=== PATIENT | female | born 1930 | race African-American/Black ===

== ENCOUNTER 2017-06-29 05:56 | Emergency (ER) | payer MEDICARE ==
[2017-06-29 07:14] LABS: #Basophils 0.1 thou/uL (0.0-0.2); #Eosinphils 0.1 thou/uL (0.0-0.7); #Lymphocytes 1.9 thou/uL (1.20-3.40); #Monocytes 0.7 thou/uL (0.11-0.59); #Neutrophils 7.1 thou/uL (1.40-6.50); %Basophils 1.1 % (0.0-1.0); %Eosinophils 0.8 % (0.0-10.0); %Lymphocytes 19.7 % (21.0-51.0); %Monocytes 6.7 % (0.0-10.0); %Neutrophils 71.7 % (42.0-75.0); Hemoglobin 11.5 g/dL (12.0-16.0); Mean Corpuscular HGB CONC 32.1 g/dL (32.0-36.0); Mean Corpuscular Hemoglobin 30.6 pg (27.0-31.0); Mean Corpuscular Volume 95.3 fl (81.0-99.0); Mean Platelet Volume 5.8 fL (7.4-10.4); Platelet Count 276 thou/uL (130-400); RBC Distribution Width 11.7 % (11.5-14.5); Red Blood Cell (RBC) Count 3.77 mill/uL (4.20-5.40); White Blood Cell (WBC) Count 9.8 thou/uL (4.8-10.8)
[2017-06-29 07:23] LABS: PTT 27.8 SEC (22.9-36.1); Prothrombin Time 13.2 SEC (12.0-14.7)
[2017-06-29] MEDS ORDERED: Pantoprazole 40 MG VIAL ONE (07:24)
[2017-06-29 07:33] LABS: ALT (SGPT) 11 U/L (8-55); AST (SGOT) 17 U/L (5-34); Albumin 3.7 g/dL (3.4-4.8); Alkaline Phosphatase 63 U/L (40-150); Anion Gap 15 mmol/L (10-20); BUN (Urea Nitrogen) 13 mg/dL (9.8-20.1); Bilirubin, Total 0.7 mg/dL (0.2-1.2); CK (CPK) 55 U/L (29-168); CKMB 0.8 ng/mL (0-6.6); Calc. Creatinine Clearance 0 mL/min (70-130); Calcium 9.4 mg/dL (7.8-10.44); Carbon Dioxide 27 mmol/L (23-31); Chloride 99 mmol/L (98-107); Estimated GFR-MDRD 87; Globulin 3.7 g/dL (2.4-3.5); Glucose 102 mg/dL (83-110); Lipase 8 U/L (8-78); Potassium 4.4 mmol/L (3.5-5.1); Protein, Total 7.4 g/dL (6.0-8.3); Sodium 137 mmol/L (136-145); Troponin I Less than 0.010 ng/mL (< 0.028)
[2017-06-29] MEDS ORDERED: Sodium Chloride 0.9% 250 ML 250 ML ONE (07:59)
--- NOTE | 2017-06-29 07:59 | RAD ---
PORTABLE CHEST 1 VIEW: DATE: 06/29/17. TIME: 6:32 a.m. HISTORY: Nausea and vomiting. FINDINGS: Comparison is made with the exam of 06/24/17. The heart size is normal. The aorta is tortuous. No confluent areas of consolidation, pneumothorax , or pleural effusions are seen. IMPRESSION: No acute process. POS: [facility]
== END 2017-06-29 09:00 | disposition short-term general hospital (02) ==
LOC: NAV ERS 05:56
DX: K92.2 Gastrointestinal hemorrhage, unspecified (principal); E11.9 Type 2 diabetes mellitus without complications; F17.220 Nicotine dependence, chewing tobacco, uncomplicated; Z79.82 Long term (current) use of aspirin; Z79.84 Long term (current) use of oral hypoglycemic drugs; Z79.899 Other long term (current) drug therapy
CPT/HCPCS: 71010; 80053; 82550; 82553; 83690; 84484; 85025; 85610; 85730; 86850; 86900; 86901; 93005; 96374; C9113; J7050

== ENCOUNTER 2017-06-30 20:19 | Inpatient (IN) | payer MEDICARE ==
[2017-06-30] MEDS ORDERED: Ondansetron ODT 4 MG TAB PO PRN (20:50)
[2017-06-30] MEDS ORDERED: traMADol HCl 50 MG TAB PO PRN ×2 (20:50)
[2017-06-30] MEDS ORDERED: Calcium Carbonate 500 MG ChewTAB PO PRN (20:59)
[2017-06-30] MEDS ORDERED: Milk Of Magnesia 30 ML UDCUP PO PRN (20:59)
[2017-06-30] MEDS ORDERED: Loperamide HCl 2 MG CAP PO PRN (20:59)
[2017-06-30] MEDS: Acetaminophen 325 MG TAB PO SCH (21:00)
[2017-06-30] MEDS: Senokot S 8.6-50 MG TAB PO SCH (22:04)
[2017-06-30] MEDS: Docusate 100 MG CAP PO SCH (22:04)
[2017-07-01] MEDS: Acetaminophen 325 MG TAB PO SCH ×4 (03:00→21:32)
--- NOTE | 2017-07-01 04:46 | HP ---
DATE OF ADMISSION: 06/30/2017 DATE OF HISTORY AND PHYSICAL: 06/30/2017 HISTORY OF PRESENT ILLNESS: Ms. Rodríguez is a very pleasant 87-year-old thin black female that lives in [place]. Unfortunately, she fell and had a right femur fracture requiring surgical correction. She, eventually, was stabilized and transferred to [facility], but at [facility] she was on prophylactic Lovenox 30 every day along with aspirin and Zantac twice a day. She unfortunately had a GI bleed, was transferred back to [facility] where she got scoped. She has had no significant other bleeding and was transferred to [facility] for continued physical therapy, occupational therapy for her fractured femur. PAST MEDICAL HISTORY: 1. Repeat urinary tract infection. 2. Diabetes type 2. 3. Gastroesophageal reflux disease. 4. Peptic ulcer in the distant past. 5. Constipation. 6. Pain management. PAST SURGICAL HISTORY: 1. Recent femur fracture. 2. Past history of distant right hip replacement. 3. Appendectomy. 4. Hysterectomy. ALLERGIES: Reveal the patient has no known allergies. MEDICATIONS: Reveal the patient is presently on aspirin 81 mg daily, metformin 500 mg daily, MiraLax 17 grams daily, Lovenox 30 mg daily, tramadol 50 mg with Tylenol p.r.n., Protonix 40 mg b.i.d. FAMILY HISTORY: Unremarkable. SOCIAL HISTORY: Reveals patient denies tobacco, alcohol, but she does dip snuff. REVIEW OF SYSTEMS: Unable to obtain because the patient has cognitive deficits , and is not able to answer questions. PHYSICAL EXAMINATION: VITAL SIGNS: Reveal blood pressure 153/67, pulse 85, respirations 20, O2 saturation 97%, and temperature 97.5. GENERAL: This is a well-developed, well-nourished, thin black female in no apparent distress at this time. HEENT: Reveals normocephalic, nontraumatic cranium. Pupils are equally round and reactive. Extraocular movements intact. Nose and throat are slightly dry. NECK: Supple, without masses, nodes or bruits. No jugular venous distention is noted. CHEST: Clear to auscultation. No rales, rhonchi, wheezes or cough is heard. HEART: Reveals a regular rate and rhythm with a 2/6 systolic ejection murmur noted. ABDOMEN: Soft, nontender, without organomegaly, normal bowel sounds are noted. No rebound or guarding is noted. : Deferred. EXTREMITIES: Reveal right lower leg is in a leg immobile splint. SKIN: Warm and dry. ASSESSMENT: 1. Recent femur fractures, open reduction and internal fixation done by unknown surgeon. 2. Recent gastrointestinal bleed, most likely secondary to peptic ulcer, now not bleeding. 3. Anemia secondary to gastrointestinal bleed. 4. Chronic kidney disease stage 2. 5. Diabetes type 2. 6. Recent femur fracture. 7. Gastroesophageal reflux disease. 8. Cognitive deficits. 9. DNR. 10. Recent Escherichia coli urinary tract infection. 11. Chronic constipation. PLAN: 1. The patient is admitted. We will continue her present medications. 2. We get a consult from physical therapy and occupational daily. 3. Continue stress ulcer prophylaxis. 4. Continue decubitus precautions. 5. Continue decubitus deep venous thrombosis prophylaxis. 6. Continue working for senior living placement after her therapy. CUATE
[2017-07-01 06:05] LABS: #Basophils 0.1 thou/uL (0.0-0.2); #Eosinphils 0.1 thou/uL (0.0-0.7); #Lymphocytes 2.2 thou/uL (1.20-3.40); #Monocytes 0.7 thou/uL (0.11-0.59); #Neutrophils 5.2 thou/uL (1.40-6.50); %Basophils 1.6 % (0.0-1.0); %Eosinophils 1.5 % (0.0-10.0); %Lymphocytes 26.2 % (21.0-51.0); %Monocytes 8.9 % (0.0-10.0); %Neutrophils 61.7 % (42.0-75.0); Mean Corpuscular HGB CONC 32.6 g/dL (32.0-36.0); Mean Corpuscular Hemoglobin 31.1 pg (27.0-31.0); Mean Corpuscular Volume 95.4 fl (81.0-99.0); Mean Platelet Volume 5.5 fL (7.4-10.4); Platelet Count 296 thou/uL (130-400); RBC Distribution Width 11.7 % (11.5-14.5); Red Blood Cell (RBC) Count 3.54 mill/uL (4.20-5.40); White Blood Cell (WBC) Count 8.4 thou/uL (4.8-10.8)
[2017-07-01 06:11] LABS: ALT (SGPT) 10 U/L (8-55); AST (SGOT) 20 U/L (5-34); Albumin 3.6 g/dL (3.4-4.8); Alkaline Phosphatase 62 U/L (40-150); Anion Gap 16 mmol/L (10-20); BUN (Urea Nitrogen) 10 mg/dL (9.8-20.1); Bilirubin, Total 0.9 mg/dL (0.2-1.2); Calc. Creatinine Clearance 68 mL/min (70-130); Calcium 9.3 mg/dL (7.8-10.44); Carbon Dioxide 23 mmol/L (23-31); Chloride 104 mmol/L (98-107); Estimated GFR-MDRD Greater than 90; Globulin 3.5 g/dL (2.4-3.5); Glucose 114 mg/dL (83-110); Potassium 4.7 mmol/L (3.5-5.1); Protein, Total 7.1 g/dL (6.0-8.3); Sodium 138 mmol/L (136-145)
--- NOTE | 2017-07-01 09:39 | PRG ---
DATE OF ADMISSION: 06/30/2017 DATE OF SERVICE: 07/01/2017 HISTORY OF PRESENT ILLNESS: Ms. Rodríguez is a very pleasant 87-year-old black female who lives in [facility]. Unfortunately, she fell and had a right femur fracture requiring surgical correction. Then she was stabilized and transferred to [facility], but there she had significant problems with uppe r GI bleed. She was taken back to the hospital and has had EGD done. No significant bleeding was f ound. The patient was transferred to [facility] for continued PT, OT of her fractur ed femur. SUBJECTIVE: The patient is awake this morning, she states she did not sleep last night very much. She did get somewhat agitated and had to have some soft restraints. Her daughter is aware of that. Her daughter is aware that she has some increasing dementia and we start her on some alzheimer's ty pe medications. We will start her on some Aricept today. The patient has no complaints today, except she does not really know where she is and states she wou ld like to stay upon all long. PHYSICAL EXAMINATION: VITAL SIGNS: Today reveal blood pressure 153/67, pulse 85, respirations 20, O2 saturation 97% on ro om air, temperature 97.5. GENERAL: This is a well-developed, well-nourished, black female in no apparent distress at this [facility]. HEENT: Reveals normocephalic, nontraumatic cranium. Pupils are equally round and reactive. Nose a nd throat are still somewhat dry. NECK: Supple, without masses, nodes or bruits. No jugular venous distention is noted. LUNGS: Chest is clear to auscultation. No rales or rhonchi are heard. No wheezes are heard. No c ough is heard. CARDIOVASCULAR: Reveals a regular rate and rhythm. The patient does have a 2/6 systolic ejection m urmur. ABDOMEN: Soft, nontender, without organomegaly. No rebound or guarding is noted. Normal bowel candy nds are heard in all 4 quadrants. GENITOURINARY: Deferred. Extremities: Right lower extremity has a knee immobilizer. SKIN: The patient's skin is warm and dry. ASSESSMENT: 1. Recent femur fracture with internal fixation and open reduction done recently. 2. Gastrointestinal bleed, most likely secondary to peptic ulcer, now not bleeding. 3. Anemia secondary to gastrointestinal bleed. 4. Chronic kidney disease stage 2. 5. Diabetes type 2. 6. Recent femur fracture. 7. Gastroesophageal reflux disease. 8. Cognitive deficits with early dementia. 9. DNR. 10. Recent Escherichia coli urinary tract infection is resolved. 11. Constipation, chronic. PLAN: 1. The patient will continue present medications. 2. We will start the patient on Aricept. 3. Continue stress ulcer prophylaxis. 4. Continue decubitus precautions. 5. Continue deep venous thrombosis prophylaxis. 6. Physical therapy and occupational therapy consults. 7. prison placement.
[2017-07-01] MEDS: Polyethylene Glycol 3350 17 GM Packet PO SCH (09:53)
[2017-07-01] MEDS: Docusate 100 MG CAP PO SCH ×2 (09:53→21:28)
[2017-07-01] MEDS: Aspirin 81 mg Enteric Coated Tablet PO SCH (09:53)
[2017-07-01] MEDS: Senokot S 8.6-50 MG TAB PO SCH ×2 (09:53→21:27)
[2017-07-01] MEDS: Acetaminophen 325 MG TAB PO PRN ×2 (09:53→21:27)
[2017-07-01] MEDS: metFORMIN 500 MG TAB PO SCH (17:32)
[2017-07-01] MEDS: Donepezil HCl 5 MG TAB PO SCH (21:27)
[2017-07-02] MEDS: Acetaminophen 325 MG TAB PO SCH ×4 (02:37→22:12)
[2017-07-02] MEDS: Polyethylene Glycol 3350 17 GM Packet PO SCH (08:10)
[2017-07-02] MEDS: Docusate 100 MG CAP PO SCH ×2 (08:11→22:10)
[2017-07-02] MEDS: Senokot S 8.6-50 MG TAB PO SCH ×2 (08:11→22:10)
[2017-07-02] MEDS: Aspirin 81 mg Enteric Coated Tablet PO SCH (08:11)
[2017-07-02] MEDS: metFORMIN 500 MG TAB PO SCH (16:23)
[2017-07-02 19:40] LABS: Bilirubin Negative (Negative); Blood, Urine Negative (Negative); Clarity Clear (Clear); Glucose, Urine (Dipstick) Negative (Negative); Leukocyte Small (Negative); Nitrite Negative (Negative); Protein, Urine (Dipstick) Negative (Neg-Trace)
[2017-07-02 19:41] LABS: Bacteria/HPF Rare-Few HPF (None Seen); RBC/HPF 0-3 HPF (0-3); Squamous Epithelial 0-3 HPF (0-3)
--- NOTE | 2017-07-02 20:45 | PRG ---
DATE OF SERVICE: 07/02/2017 HISTORY OF PRESENT ILLNESS: Ms. Rodríguez is a very pleasant 87-year-old black female, who lives in [facility]. Unfortunately, she fell and had a right femoral neck fracture. She has surgical correction and transferred to [facility], but had an upper GI bleed there. She was taken back to the hospit al and had EGD done, which was unremarkable. The patient was then transferred to [facility] for continued physical therapy and occupational therapy of her fractured femur. SUBJECTIVE: The patient is confused today. She is oriented to person, but not place or time. She does have a history of some dementia. She is not agitated today. She has no other complaints. We did start her on Aricept. PHYSICAL EXAMINATION: VITAL SIGNS: Reveal blood pressure is 128/58 this morning with a pulse of 87 to 95, respirations 20 , O2 sat 98% on room air, T-max 97.7. Point of care sugars have been in the following: This mornin g, fasting 160, before lunch 148, before supper 132. Her max was last night at 180. GENERAL: This is a well-developed, well-nourished, black female in no apparent distress at this felicia e. HEENT: Reveals normocephalic, nontraumatic cranium. Pupils are equally round and reactive. Extrao cular movements are intact. Nose and throat are somewhat dry, but clear. NECK: Supple, without masses, nodes or bruits. No jugular venous distention is noted. LUNGS: Chest is clear to auscultation. No rales, rhonchi, wheezes or cough is heard. CARDIOVASCULAR: Heart reveals a regular rate and rhythm. The patient has a 2/6 systolic ejection m urmur. ABDOMEN: Soft, nontender, without organomegaly, normal bowel sounds are noted in all 4 quadrants. GENITOURINARY: Deferred. EXTREMITIES: Reveal no clubbing, cyanosis or edema. The patient does have a right knee immobilizer on. ASSESSMENT: 1. Recent femur fracture with internal fixation and open reduction. 2. Gastrointestinal bleed, most likely secondary to peptic ulcer, not bleeding now. 3. Anemia secondary to gastrointestinal bleed. 4. Chronic kidney disease, stage 2. 5. Diabetes. 6. Recent femur fracture. 7. Gastroesophageal reflux disease. 8. Cognitive deficits with early dementia. 9. DO NOT RESUSCITATE. 10. Recent Escherichia coli urinary tract infection, resolved. 11. Constipation. PLAN: 1. Continue present medications. 2. The patient was started on Aricept 5 mg every evening. 3. Continue stress ulcer prophylaxis. 4. Continue decubitus precautions. 5. Continue deep venous thrombosis prophylaxis. 6. Physical therapy and occupational therapy. 7. half-way placement in the future sometimes.
[2017-07-02] MEDS: Donepezil HCl 5 MG TAB PO SCH (22:10)
[2017-07-03] MEDS: Acetaminophen 325 MG TAB PO SCH ×4 (04:03→20:18)
[2017-07-03] MEDS: Aspirin 81 mg Enteric Coated Tablet PO SCH (08:41)
[2017-07-03] MEDS: Polyethylene Glycol 3350 17 GM Packet PO SCH (08:42)
[2017-07-03] MEDS: Senokot S 8.6-50 MG TAB PO SCH ×2 (08:42→20:18)
[2017-07-03] MEDS: Docusate 100 MG CAP PO SCH ×2 (08:42→20:18)
--- NOTE | 2017-07-03 12:07 | PRG ---
DATE OF SERVICE: 07/03/2017 HISTORY OF PRESENT ILLNESS: Ms. Rodríguez is a very pleasant 87-year-old black female who lives in [facility]. She has dementia and is somewhat confused. Unfortunately, she fell and had a right femoral neck fracture. She was transferred to [facility], but had an upper GI bleed and was transferred [facility] to [place]. She had an EGD done, which was unremarkable and then transferred to [facility] for continued physical therapy and occupational therapy of her fractured femur. SUBJECTIVE: The patient continues to be confused. She is oriented to person, but not place or time . She does have a history of dementia according to her past chart. She is undergoing therapy this morning. We will see how well she does, she is actually nonweightbearing for the distal fracture. VITAL SIGNS: Reveal blood pressure is 138/57, pulse 83 to 95, respirations 20 to 22, T-max 98.2. Point of care sugars reveal fasting this morning, 121; last night before bedtime, 150; before supper , 132; before lunch, 148; yesterday morning fasting, 116. PHYSICAL EXAMINATION: GENERAL: This is a well-developed, well-nourished, black female in no apparent distress at this [facility]. HEENT: Reveals normocephalic, nontraumatic cranium. Pupils are equally round. Extraocular movemen ts intact. Nose and throat are still dry. NECK: Supple, without masses, nodes or bruits. CHEST: Clear to auscultation. No rales, rhonchi or wheezes, or cough is heard. CARDIOVASCULAR: Heart reveals a regular rate and rhythm. Patient has a 2/6 systolic ejection murmu r. ABDOMEN: Soft, nontender, without organomegaly, normal bowel sounds are noted. No rebound or guard ing is noted. GENITOURINARY: Deferred. EXTREMITIES: Reveal right knee immobilizer, actually it is fixed. She is supposed to be nonweightb earing. Physical therapy is working for that today. ASSESSMENT: 1. Recent femur fracture. 2. Gastrointestinal bleed, most likely secondary to peptic ulcer, not bleeding now. 3. Anemia secondary to gastrointestinal bleed. 4. Chronic kidney disease stage 2. 5. Diabetes. 6. Recent femur fracture. 7. Gastroesophageal reflux. 8. Cognitive deficits with dementia. 9. Do not resuscitate. 10. Recent Escherichia coli urinary tract infection, resolved. 11. Constipation. PLAN: 1. Continue present medications. 2. Aricept 5 mg every evening. 3. Continue stress ulcer prophylaxis. 4. Continue decubitus precautions. 5. Continue deep venous thrombosis prophylaxis. 6. Continue physical therapy and occupational therapy. 7. Probable assisted placement in the future. 8. Dr. Lozada to follow the rest of the week until I get back on Sunday.
[2017-07-03] MEDS: metFORMIN 500 MG TAB PO SCH (17:39)
[2017-07-03] MEDS: Donepezil HCl 5 MG TAB PO SCH (20:18)
[2017-07-04] MEDS: Acetaminophen 325 MG TAB PO SCH ×4 (06:40→20:48)
[2017-07-04] MEDS: Polyethylene Glycol 3350 17 GM Packet PO SCH (09:03)
[2017-07-04] MEDS: Docusate 100 MG CAP PO SCH ×2 (09:04→20:48)
[2017-07-04] MEDS: Aspirin 81 mg Enteric Coated Tablet PO SCH (09:04)
[2017-07-04] MEDS: Senokot S 8.6-50 MG TAB PO SCH ×2 (09:04→20:48)
[2017-07-04] MEDS: metFORMIN 500 MG TAB PO SCH (17:10)
[2017-07-04] MEDS: Donepezil HCl 5 MG TAB PO SCH (20:48)
[2017-07-05] MEDS: Acetaminophen 325 MG TAB PO SCH ×4 (05:21→20:16)
[2017-07-05] MEDS: Docusate 100 MG CAP PO SCH ×2 (09:52→20:16)
[2017-07-05] MEDS: Aspirin 81 mg Enteric Coated Tablet PO SCH (09:52)
[2017-07-05] MEDS: Senokot S 8.6-50 MG TAB PO SCH ×2 (09:52→20:17)
[2017-07-05] MEDS: Polyethylene Glycol 3350 17 GM Packet PO SCH (09:52)
[2017-07-05] MEDS ORDERED: Mag-Al 1200 mg/1200 mg/30 ML UDCUP PO PRN (13:13)
--- NOTE | 2017-07-05 13:42 | PRG ---
DATE OF SERVICE: 07/05/2017 SUBJECTIVE: Ms. Rodríguez is doing well except she is having complaining of some substernal pressure. She apparently belches and then the pain goes away. She denies any shortness of breath. She al es any palpitations. She denies any PND or orthopnea. OBJECTIVE: VITAL SIGNS: She is afebrile, heart rate 76, respirations 18, oxygen saturation 94%, and blood pres sure 127/60. CARDIOVASCULAR: S1, S2 plus. RESPIRATORY: Normal vesicular breath sounds. ABDOMEN: Soft, nontender, bowel sounds heard in all quadrants. EXTREMITIES: Without cyanosis or clubbing. Peripheral pulses are palpable. CENTRAL NERVOUS SYSTEM: Grossly nonfocal. LABORATORY DATA: Blood sugars are 118, 144, 112 and 198. IMPRESSION: 1. Atypical chest pain, possibly related to gastroesophageal reflux disease. 2. Recent femur fracture, improving with therapy. 3. History of gastrointestinal bleed, stable hemoglobin and hematocrit. 4. Chronic kidney disease, stage 2. 5. Diabetes mellitus type 2. 6. Gastroesophageal reflux disease. 7. Cognitive deficits with dementia. PLAN: 1. Continue current medications. 2. Add Maalox 30 mL p.o. q.6 hours p.r.n. 3. Continue proton-pump inhibitor. 4. Physical therapy. 5. Accu-Cheks with assessable coverage. 6. Deep venous thrombosis and stress ulcer prophylaxis. 7. Decubitus precautions. 8. No family at the bedside.
[2017-07-05] MEDS ORDERED: Mag-Al Plus 1200 MG/1200 MG/120 MG/30 ML UDCUP PO PRN (13:56)
[2017-07-05] MEDS: metFORMIN 500 MG TAB PO SCH (17:18)
[2017-07-05] MEDS: Donepezil HCl 5 MG TAB PO SCH (20:17)
[2017-07-06] MEDS: Acetaminophen 325 MG TAB PO SCH ×4 (08:14→21:10)
[2017-07-06] MEDS: Docusate 100 MG CAP PO SCH ×2 (08:55→21:10)
[2017-07-06] MEDS: Senokot S 8.6-50 MG TAB PO SCH ×2 (08:55→21:10)
[2017-07-06] MEDS: Polyethylene Glycol 3350 17 GM Packet PO SCH (08:55)
[2017-07-06] MEDS: Aspirin 81 mg Enteric Coated Tablet PO SCH (08:55)
--- NOTE | 2017-07-06 09:35 | PRG ---
DATE OF SERVICE: 07/06/2017 SUBJECTIVE: Ms. Rodríguez is doing well. Denies any complaints. She states that the Maalox is helpi ng with her substernal pressure-like sensation. No other concerns or questions. OBJECTIVE: VITAL SIGNS: She is afebrile, heart rate 75, respirations 18, oxygen saturation 94%, blood pressure 123/57. CARDIOVASCULAR: S1, S2 plus. RESPIRATORY: Normal vesicular breath sounds. ABDOMEN: Soft, nontender, bowel sounds heard in all quadrants. EXTREMITIES: Without cyanosis or clubbing. CENTRAL NERVOUS SYSTEM: Improving deconditioning. LABORATORY VALUES: Blood sugars are 115, 142, 112. IMPRESSION: 1. Atypical chest pain, likely gastroesophageal reflux disease, improved with Maalox. 2. Recent femur fracture, tolerating therapy. 3. History of gastrointestinal bleed, monitor H\T\H. 4. Chronic kidney disease stage 2. 5. Diabetes mellitus type 2, well controlled. 6. Cognitive deficits with dementia. PLAN: 1. Continue current medications. 2. Nutritional support. 3. DVT and stress ulcer prophylaxis. 4. Decubitus precautions. 5. Incision care. 6. Check CBC in the morning. 7. I discussed with the patient in detail and all questions answered.
[2017-07-06] MEDS: metFORMIN 500 MG TAB PO SCH (17:19)
[2017-07-06] MEDS: Donepezil HCl 5 MG TAB PO SCH (21:11)
[2017-07-07] MEDS: Acetaminophen 325 MG TAB PO SCH ×4 (04:02→22:05)
[2017-07-07 05:12] LABS: #Basophils 0.1 thou/uL (0.0-0.2); #Eosinphils 0.2 thou/uL (0.0-0.7); #Lymphocytes 2.8 thou/uL (1.20-3.40); #Monocytes 0.6 thou/uL (0.11-0.59); #Neutrophils 5.7 thou/uL (1.40-6.50); %Basophils 0.8 % (0.0-1.0); %Eosinophils 1.8 % (0.0-10.0); %Lymphocytes 29.7 % (21.0-51.0); %Monocytes 6.2 % (0.0-10.0); %Neutrophils 61.5 % (42.0-75.0); Hemoglobin 11.9 g/dL (12.0-16.0); Mean Corpuscular HGB CONC 32.8 g/dL (32.0-36.0); Mean Corpuscular Hemoglobin 31.5 pg (27.0-31.0); Mean Corpuscular Volume 96.1 fl (81.0-99.0); Mean Platelet Volume 5.2 fL (7.4-10.4); Platelet Count 360 thou/uL (130-400); RBC Distribution Width 13.2 % (11.5-14.5); Red Blood Cell (RBC) Count 3.77 mill/uL (4.20-5.40); White Blood Cell (WBC) Count 9.3 thou/uL (4.8-10.8)
[2017-07-07 05:30] LABS: Anion Gap 12 mmol/L (10-20); BUN (Urea Nitrogen) 12 mg/dL (9.8-20.1); Calc. Creatinine Clearance 69 mL/min (70-130); Calcium 9.4 mg/dL (7.8-10.44); Carbon Dioxide 27 mmol/L (23-31); Chloride 104 mmol/L (98-107); Estimated GFR-MDRD Greater than 90; Glucose 108 mg/dL (83-110); Potassium 4.3 mmol/L (3.5-5.1); Sodium 139 mmol/L (136-145)
[2017-07-07] MEDS: Senokot S 8.6-50 MG TAB PO SCH ×2 (08:25→22:05)
[2017-07-07] MEDS: Polyethylene Glycol 3350 17 GM Packet PO SCH (08:25)
[2017-07-07] MEDS: Docusate 100 MG CAP PO SCH ×2 (08:25→22:05)
[2017-07-07] MEDS: Aspirin 81 mg Enteric Coated Tablet PO SCH (08:25)
--- NOTE | 2017-07-07 10:24 | PRG ---
DATE OF SERVICE: 07/07/2017 SUBJECTIVE: Ms. Rodríguez is doing well. Denies any complaints. Her substernal chest pressure has c ompletely resolved with Maalox. She is doing well otherwise. Denies any concerns or questions. Efrain rivera continues to wear a knee immobilizer to her right leg, mainly the knee. OBJECTIVE: VITAL SIGNS: She is afebrile, heart rate is 78, respirations 18, oxygen saturation is 97%, blood pr essure 151/66. CARDIOVASCULAR: S1, S2 plus. RESPIRATORY: Normal vesicular breath sounds. ABDOMEN: Soft, nontender, bowel sounds heard in all quadrants. EXTREMITIES: Without cyanosis or clubbing. Right leg with a knee immobilizer. LABORATORY VALUES: White count is 9.3, H\T\H is 11.9 and 36.2. Sodium 139, potassium 4.3, BUN and creatinine are 12 and 0.67, blood sugars are 129, 125, 107, and 109. IMPRESSION: 1. Right femur fracture, status post surgical fixation. 2. Gastroesophageal reflux disease, much improved with Maalox. 3. History of gastrointestinal bleeds with stable H\T\H at present. 4. Diabetes mellitus type 2. 5. Deconditioning PLAN: 1. Continue current medications. 2. Incision care. 3. Continue knee immobilizer. 4. Deep venous thrombosis and stress ulcer prophylaxis. 5. Decubitus precautions. 6. Monitor H\T\H. 7. Nutritional support. 8. Physical therapy. 9. Discussed with patient in detail and all questions answered. No family at the bedside.
[2017-07-07] MEDS: metFORMIN 500 MG TAB PO SCH (17:02)
[2017-07-07] MEDS: Donepezil HCl 5 MG TAB PO SCH (22:05)
[2017-07-08] MEDS: Acetaminophen 325 MG TAB PO SCH ×4 (03:00→21:05)
[2017-07-08] MEDS: Aspirin 81 mg Enteric Coated Tablet PO SCH (08:28)
[2017-07-08] MEDS: Polyethylene Glycol 3350 17 GM Packet PO SCH (08:28)
[2017-07-08] MEDS: Docusate 100 MG CAP PO SCH ×2 (08:28→21:05)
[2017-07-08] MEDS: Senokot S 8.6-50 MG TAB PO SCH ×2 (08:28→21:05)
--- NOTE | 2017-07-08 11:16 | PRG ---
DATE OF SERVICE: 07/08/2017 SUBJECTIVE: Ms. Rodríguez is doing well. Denies any complaints. She is resting comfortably, tolerat ing her medications and her therapy. OBJECTIVE: VITAL SIGNS: She is afebrile, heart rate 73, respirations 18, oxygen saturation is 98% on room air, blood pressure 117/73. CARDIOVASCULAR: S1, S2 plus. RESPIRATORY: Normal vesicular breath sounds. ABDOMEN: Soft, nontender, bowel sounds heard in all quadrants. EXTREMITIES: Without cyanosis or clubbing. Right leg incision is healthy. LABORATORY DATA: Her blood sugars are 122, 111, 118 and 109. IMPRESSION: 1. Right femur fracture, status post surgical fixation. 2. History of gastrointestinal bleed with stable hemoglobin and hematocrit. 3. Gastroesophageal reflux disease. 4. Diabetes mellitus type 2. 5. Deconditioning. PLAN: 1. Continue current medications. 2. A 1800 calorie heart healthy diet. 3. Accu-Cheks with sliding scale coverage. 4. Monitor H\T\H. 5. Deep venous thrombosis prophylaxis. 6. Decubitus precautions. 7. Stress ulcer prophylaxis. 8. Routine laboratory values. 9. Dr. Lupis Hughes back tonight.
[2017-07-08] MEDS: metFORMIN 500 MG TAB PO SCH (17:00)
[2017-07-08] MEDS: Donepezil HCl 5 MG TAB PO SCH (21:04)
[2017-07-09] MEDS: Acetaminophen 325 MG TAB PO SCH ×5 (03:17→20:10)
[2017-07-09] MEDS: Polyethylene Glycol 3350 17 GM Packet PO SCH (09:39)
[2017-07-09] MEDS: Senokot S 8.6-50 MG TAB PO SCH ×2 (09:39→20:10)
[2017-07-09] MEDS: Aspirin 81 mg Enteric Coated Tablet PO SCH (09:39)
[2017-07-09] MEDS: Docusate 100 MG CAP PO SCH ×2 (09:39→20:10)
[2017-07-09] MEDS ORDERED: Citalopram 10 MG TAB PO SCH (11:15)
--- NOTE | 2017-07-09 14:45 | PRG ---
DATE OF SERVICE: 07/09/2017 SUBJECTIVE: Ms. Rodríguez is upset this morning. She states that her kids have taken all of her sabrina y out of her bank account, have canceled all of her insurance and cashed it in, and she is very upse t this morning. She states that one of her sons came in last night, did not say very much, one of t he the daughters came in and said that they did that. I am not sure if she is confabulating or if i t actually happens. Nonetheless, the patient is very tearful this morning and depressed. LABORATORY DATA: Point of care sugar fasting this morning 113, before bedtime last night 127, befor e supper 130, before lunch 134, before breakfast yesterday morning 109. PHYSICAL EXAMINATION: GENERAL: This is a well-developed, well-nourished, very upset black female, in no apparent distress at this time. VITAL SIGNS: This morning reveal blood pressure 178/75, yesterday evening is 128/60. Pulse 73-88, respirations 18-20, O2 sat 97%-98%. HEENT: Reveals normocephalic, nontraumatic cranium. Pupils equal, round, and reactive. Extraocula r movements intact. Nose and throat are somewhat dry. NECK: Supple, without masses, nodes or bruits. LUNGS: Chest is clear to auscultation, no rales, rhonchi, wheezes or cough is heard. CARDIOVASCULAR: Heart reveals a regular rate and rhythm. Patient does have a 2/6 systolic ejection murmur. ABDOMEN: Soft, nontender, without organomegaly, normal bowel sounds are noted. No rebound or guard ing is noted. : Deferred. EXTREMITIES: Reveal no clubbing, cyanosis or edema. The patient does have a right knee immobilizer on. She is getting ready to do some physical therapy. She is still distraught about what her kids are doing with her money. ASSESSMENT: 1. Recent femur fracture. 2. Gastrointestinal bleed, most likely secondary to peptic ulcer disease, not bleeding now. 3. Anemia secondary to gastrointestinal bleed. 4. Chronic kidney disease stage 2. 5. Diabetes. 6. Recent gastrointestinal reflux. 7. Cognitive deficits for some dementia. 8. DNR. 9. Escherichia coli of urinary tract infection, resolved. 10. Constipation. PLAN: 1. Continue present medications. 2. May need to add or increase her SSRI. 3. Aricept 5 mg every evening. 4. Stress ulcer prophylaxis. 5. Decubitus precautions. 6. Deep venous thrombosis prophylaxis. 7. Continue PT and OT. 8. Probable longterm placement in the future. 9. Dr. Lozada did a good job following this patient while I was gone.
[2017-07-09] MEDS: metFORMIN 500 MG TAB PO SCH (17:09)
[2017-07-09] MEDS: Donepezil HCl 5 MG TAB PO SCH (20:10)
[2017-07-10] MEDS: Senokot S 8.6-50 MG TAB PO SCH ×2 (09:01→20:12)
[2017-07-10] MEDS: Docusate 100 MG CAP PO SCH ×2 (09:01→20:12)
[2017-07-10] MEDS: Citalopram 10 MG TAB PO SCH (09:01)
[2017-07-10] MEDS: Polyethylene Glycol 3350 17 GM Packet PO SCH (09:01)
[2017-07-10] MEDS: Acetaminophen 325 MG TAB PO SCH ×4 (09:03→20:11)
[2017-07-10] MEDS: Aspirin 81 mg Enteric Coated Tablet PO SCH (09:03)
--- NOTE | 2017-07-10 10:21 | PRG ---
DATE OF SERVICE: 07/10/2017 HISTORY OF PRESENT ILLNESS: Ms. Rodríguez is a pleasant, well-developed, well-nourished, black female , sitting outside today. She unfortunately fell and had a right distal femur fracture requiring taniya gical correction. She was stabilized and transferred to [facility], but did not do well. She had a GI bleed and was transferred back to [facility] where she got scoped which revealed no s ignificant bleeding. She was transferred to [facility] for continued physical thera py, occupational therapy of her fractured femur. SUBJECTIVE: The patient states she is doing well today. She ate well yesterday. She really enjoye d the calvo beans and she states they were as good as her mom's calvo beans. She has no other compl aints today. She is not having any significant pain. VITAL SIGNS: Blood pressure is 148/91. Prior to that it was 130/63, pulse 72-81, respirations 18-2 0, O2 sat 96-97%. T-max is 98.2. LABORATORY: Sugars revealed a fasting this morning 112, before bedtime 125, before supper 148, befo re lunch 168, before breakfast yesterday morning 113. PHYSICAL EXAMINATION: GENERAL: This is a well-developed, well-nourished, very pleasant black female in no apparent distre ss at this time. HEENT: Reveals normocephalic, nontraumatic cranium. Pupils are equally round and reactive. Extrao cular movements intact. Nose and throat are slightly dry, but clear. NECK: Supple, without masses, nodes or bruits. LUNGS: Chest is clear to auscultation. No rales, rhonchi or wheezes are heard. No cough is noted. HEART: Reveals a regular rate and rhythm. The patient does have a 2/6 systolic ejection murmur. ABDOMEN: Slightly obese, soft, nontender, without organomegaly. Normal bowel sounds are noted. No rebound or guarding is noted. : Deferred. EXTREMITIES: Reveal a right knee immobilizer from her fracture. The patient continues to do physical therapy. She continues to eat well and she has no complaints. She has forgotten about her money. She had a problem this morning, so far, and I did not bring it up. IMPRESSION: 1. Recent distal femur fracture status post surgical correction. 2. Gastroesophageal bleed secondary to peptic ulcer disease, not bleeding. 3. Anemia secondary to gastrointestinal bleed. 4. Chronic kidney disease stage 2. 5. Diabetes. 6. Recent gastrointestinal reflux. 7. Cognitive deficits and some dementia. 8. DNR. 9. Escherichia coli urinary tract infection, resolved. 10. Constipation. PLAN: 1. Continue present medications. 2. Continue Aricept. 3. Continue stress ulcer prophylaxis. 4. Decubitus precautions. 5. Deep venous thrombosis prophylaxis. 6. Continue physical therapy and occupational therapy. 7. Continue looking for placement in senior care.
[2017-07-10] MEDS: metFORMIN 500 MG TAB PO SCH (16:45)
[2017-07-10] MEDS: Donepezil HCl 5 MG TAB PO SCH (20:12)
[2017-07-11] MEDS: Acetaminophen 325 MG TAB PO SCH ×4 (05:51→20:19)
[2017-07-11] MEDS: Docusate 100 MG CAP PO SCH ×2 (08:40→20:19)
[2017-07-11] MEDS: Aspirin 81 mg Enteric Coated Tablet PO SCH (08:40)
[2017-07-11] MEDS: Polyethylene Glycol 3350 17 GM Packet PO SCH (08:40)
[2017-07-11] MEDS: Citalopram 10 MG TAB PO SCH (08:40)
[2017-07-11] MEDS: Senokot S 8.6-50 MG TAB PO SCH ×2 (08:41→20:20)
--- NOTE | 2017-07-11 10:45 | PRG ---
DATE OF SERVICE: 07/11/2017 HISTORY OF PRESENT ILLNESS: Ms. Rodríguez is a very pleasant 87-year-old thin black female from the [facility]. She unfortunately fell and had a right distal femur fracture. She was stabiliz ed and transferred to [facility]. Unfortunately, she had a GI bleed and was transferred back to [facility]. She was scoped with no significant bleeding. She was transferred back to [facility] for physical therapy and occupational therapy. SUBJECTIVE: The patient states she is doing well today. She is on her way to see Dr. Sierra in a bout 5 minutes. He is going to reevaluate her x-ray and see if she is able to start doing some weig htbearing. She has no complaints today. VITAL SIGNS: Blood pressure this morning is 129/59, pulse 74 to 78, respirations 18-20, O2 sat 96-9 8% on room air, temperature 98.2 max. PHYSICAL EXAMINATION: GENERAL: This is a well-developed, well-nourished, thin, black female in no apparent distress at th is time. HEENT: Reveals normocephalic, nontraumatic cranium. Pupils are equally round and reactive. Extrao cular movements intact. Nose and slightly dry. NECK: Supple, without mass, nodes or bruits. CHEST: Clear to auscultation, no rales, rhonchi, wheezes or cough is heard. HEART: Reveals a regular rate and rhythm without any gallops or rubs. Patient does have a 2/6 syst olic ejection murmur. ABDOMEN: Soft, nontender, slightly obese without organomegaly, normal bowel sounds are noted. No r ebound or guarding is noted. : Deferred. EXTREMITIES: Reveals a right immobilizer is still in place. ASSESSMENT: 1. Recent distal femur fracture status post surgical correction. 2. Gastroesophageal reflux disease secondary to peptic ulcer disease, not bleeding. 3. Anemia secondary to gastrointestinal bleed. 4. Chronic kidney disease. 5. Diabetes. 6. Recent gastroesophageal reflux. 7. Cognitive deficits with some early dementia. 8. DNR. 9. Escherichia coli urinary tract infection, resolved. 10. Constipation. PLAN: 1. The patient is going see Dr. Sierra at this time for a planned appointment. 2. Continue Aricept. 3. Continue present medications. 4. Continued stress ulcer prophylaxis. 5. Continue decubitus precautions. 6. Continue deep venous thrombosis prophylaxis. 7. Continue physical therapy and occupational therapy. 8. Looking for placement in a fci.
[2017-07-11] MEDS: metFORMIN 500 MG TAB PO SCH (16:42)
[2017-07-11] MEDS: Donepezil HCl 5 MG TAB PO SCH (20:19)
[2017-07-12] MEDS: Acetaminophen 325 MG TAB PO SCH ×4 (04:47→20:48)
[2017-07-12] MEDS: Aspirin 81 mg Enteric Coated Tablet PO SCH (08:11)
[2017-07-12] MEDS: Citalopram 10 MG TAB PO SCH (08:11)
[2017-07-12] MEDS: Docusate 100 MG CAP PO SCH ×2 (08:12→19:07)
[2017-07-12] MEDS: Polyethylene Glycol 3350 17 GM Packet PO SCH (08:12)
[2017-07-12] MEDS: Senokot S 8.6-50 MG TAB PO SCH ×2 (08:12→19:07)
--- NOTE | 2017-07-12 10:24 | PRG ---
DATE OF SERVICE: 07/12/2017 HISTORY OF PRESENT ILLNESS: Ms. Rodríguez is a very pleasant 87-year-old black female with a poor mem ory. She did go see the orthopedic surgeon yesterday, states that she is doing fairly well, but sti ll should be nonweightbearing. Transferred back to [facility] for physical therapy and occupational therapy. SUBJECTIVE: The patient states her leg hurts a little bit today. She states she did not eat very m uch breakfast, but she never does. She did see Dr. Sierra, but did not remember what he said niall rhea not walking on it. She has no complaints today. VITAL SIGNS: Today reveal blood pressure is 137/62, pulse 78-84, respirations 18, O2 sat 94-96%, T- max 98.2. PHYSICAL EXAMINATION: GENERAL: This is a well-developed, well-nourished, thin white female in no apparent distress at thi s time. HEENT: Reveals normocephalic, nontraumatic cranium. Pupils are equally round and reactive. Extrao cular movements intact. Nose and throat are slightly dry. NECK: Supple, without mass, nodes or bruits. LUNGS: Chest is clear to auscultation. No rales, no rhonchi, no wheezes are heard. No cough is no taco. HEART: Reveals a regular rate and rhythm without murmurs, gallops or rubs. The patient does have a 2/6 systolic ejection murmur. ABDOMEN: Slightly obese. Soft, nontender, without organomegaly, normal bowel sounds are noted. No rebound or guarding is noted. : Deferred. EXTREMITIES: Reveal right knee immobilizer that has been liberalized to 20-70 degrees. IMPRESSION: 1. Recent distal femur fracture status post surgical correction. 2. Gastroesophageal reflux disease, secondary to peptic ulcer disease, presently not bleeding. 3. Anemia secondary to gastrointestinal bleed. 4. Chronic kidney disease. 5. Diabetes. 6. Gastroesophageal reflux. 7. Cognitive deficits with early dementia. 8. DNR. 9. Prior history of Escherichia coli urinary tract infection, resolved. 10. Constipation. PLAN: 1. The patient is still nonweightbearing. 2. Continue Aricept. 3. Continues present meds. 4. Continue decubitus precautions. 5. Continue stress ulcer prophylaxis. 6. Continue deep venous thrombosis prophylaxis. 7. Continue physical therapy and occupational therapy. 8. Placement.
[2017-07-12] MEDS: metFORMIN 500 MG TAB PO SCH (17:08)
[2017-07-12] MEDS: Donepezil HCl 5 MG TAB PO SCH (20:47)
[2017-07-13] MEDS: Acetaminophen 325 MG TAB PO SCH ×4 (02:59→20:27)
[2017-07-13] MEDS: Senokot S 8.6-50 MG TAB PO SCH ×2 (08:33→19:56)
[2017-07-13] MEDS: Docusate 100 MG CAP PO SCH ×2 (08:33→19:56)
[2017-07-13] MEDS: Polyethylene Glycol 3350 17 GM Packet PO SCH (08:33)
[2017-07-13] MEDS: Aspirin 81 mg Enteric Coated Tablet PO SCH (08:33)
[2017-07-13] MEDS: Citalopram 10 MG TAB PO SCH (08:33)
[2017-07-13] MEDS: metFORMIN 500 MG TAB PO SCH (18:08)
--- NOTE | 2017-07-13 18:12 | PRG ---
DATE OF SERVICE: 07/13/2017 DATE OF ADMISSION: 06/30/2017 HISTORY OF PRESENT ILLNESS: Ms. Rodríguez is a very pleasant 87-year-old black female with a very poo r memory. Unfortunately, she fell and fractured her right femoral neck. She had surgical correctio n and was transferred to [facility] where she had a GI bleed. She eventually was stabilized and t ransferred to [facility] for physical therapy and occupational therapy. SUBJECTIVE: The patient continues to be slightly confused at times. She is oriented to person, but not really place or time. She really does need to have 24-hour care. I did discuss with today about her team meeting next Sunday and the daughter is going to come . Daughter is a nurse at [employer]. They wanted to take her home, but she really does need 24-hour care. PHYSICAL EXAMINATION: VITAL SIGNS: Today reveals vital signs this morning blood pressure 129/60, pulse 70-80, respiration s 18-20, O2 sat 94%-97% on room air, temperature 98.0. GENERAL: This is a well-developed, well-nourished, pleasant black female, pleasantly confused, in n o apparent distress at this time. HEENT: Reveals normocephalic, nontraumatic cranium. Pupils are equally round and reactive. Extrao cular movements intact. Nose and throat are still slightly dry. NECK: Supple, without masses, nodes or bruits. CHEST: Clear to auscultation. No rales, no rhonchi, no wheezes are heard. The patient has no coug h today. HEART: Reveals a regular rate and rhythm without gallops or rubs. The patient does have a 2/6 syst olic ejection murmur. ABDOMEN: Slightly obese. It is soft and nontender, without organomegaly. Normal bowel sounds are heard. Bowel sounds are heard in all 4 quadrants. No rebound or guarding is noted. : Deferred. EXTREMITIES: Reveal right knee immobilizer that has been liberalized by, I believe by the orthopedi c surgeon to 20-70 degrees. IMPRESSION: 1. Recent distal femur fracture status post surgical correction. 2. Gastroesophageal reflux disease secondary to peptic ulcer disease, presently not bleeding. 3. Anemia secondary to gastrointestinal bleed. 4. Chronic kidney disease. 5. Diabetes. 6. Esophageal reflux. 7. Cognitive deficits of early dementia. 8. DNR. 9. Prior history of Escherichia coli urinary tract infection, resolved. 10. Constipation. PLAN: 1. The patient is still nonweightbearing. 2. Continue Aricept. 3. Continue present meds. 4. Continued decubitus precautions. 5. Continue stress ulcer prophylaxis. 6. DVT thrombosis prophylaxis. 7. Continue physical therapy and occupational therapy. 8. Probable placement, patient does need 24-hour care.
[2017-07-13] MEDS: Donepezil HCl 5 MG TAB PO SCH (20:26)
[2017-07-14] MEDS: Acetaminophen 325 MG TAB PO SCH ×4 (04:14→20:38)
--- NOTE | 2017-07-14 09:28 | PRG ---
DATE OF SERVICE: 07/14/2017 SUBJECTIVE: The patient feels well with only complaints of pain in the right distal femur on moveme nt, but otherwise no pain at rest and is up getting with therapy in the wheelchair. She has had no problems with nausea, vomiting, diarrhea, and has had a good appetite and no evidence of recurrence of her GI bleed. OBJECTIVE: VITAL SIGNS: Shows her blood pressure 146/65, temperature 98, pulse 75, respirations 20, and O2 sat s 98%. LUNGS: Clear. CARDIAC: Examination showed regular rhythm. ABDOMEN: Soft and nontender. EXTREMITIES: Right leg shows tenderness to palpation of the distal femur, but there is no swelling, erythema, warmth or drainage and the madina have been removed from the incision over the lower dis vignesh femur. ASSESSMENT: 1. Resolving distal femur fracture in brace, no pain at rest and increasing strength, but still non weightbearing. 2. No evidence of recurrent gastrointestinal bleed. Good appetite. No nausea and vomiting. 3. Chronic kidney disease stage, stable. 4. Diabetes, stable with Accu-Cheks less than 129. PLAN: 1. Continue to monitor Accu-Cheks. Repeat CBC in the a.m. Continue to monitor pain and administer pain relief. 2. Continue PT and OT.
[2017-07-14] MEDS: Polyethylene Glycol 3350 17 GM Packet PO SCH (09:45)
[2017-07-14] MEDS: Docusate 100 MG CAP PO SCH ×2 (09:45→20:30)
[2017-07-14] MEDS: Senokot S 8.6-50 MG TAB PO SCH ×2 (09:45→20:30)
[2017-07-14] MEDS: Aspirin 81 mg Enteric Coated Tablet PO SCH (09:45)
[2017-07-14] MEDS: Citalopram 10 MG TAB PO SCH (09:45)
[2017-07-14] MEDS: metFORMIN 500 MG TAB PO SCH (16:10)
[2017-07-14] MEDS: Donepezil HCl 5 MG TAB PO SCH (20:37)
[2017-07-15] MEDS: Acetaminophen 325 MG TAB PO SCH ×4 (04:48→20:16)
[2017-07-15 05:41] LABS: #Basophils 0.1 thou/uL (0.0-0.2); #Eosinphils 0.1 thou/uL (0.0-0.7); #Lymphocytes 2.4 thou/uL (1.20-3.40); #Monocytes 0.5 thou/uL (0.11-0.59); #Neutrophils 3.7 thou/uL (1.40-6.50); %Basophils 1.1 % (0.0-1.0); %Eosinophils 1.8 % (0.0-10.0); %Lymphocytes 35.4 % (21.0-51.0); %Monocytes 7.1 % (0.0-10.0); %Neutrophils 54.6 % (42.0-75.0); Hemoglobin 11.9 g/dL (12.0-16.0); Mean Corpuscular HGB CONC 31.9 g/dL (32.0-36.0); Mean Corpuscular Hemoglobin 30.7 pg (27.0-31.0); Mean Corpuscular Volume 96.3 fl (81.0-99.0); Mean Platelet Volume 5.2 fL (7.4-10.4); Platelet Count 359 thou/uL (130-400); RBC Distribution Width 13.2 % (11.5-14.5); Red Blood Cell (RBC) Count 3.87 mill/uL (4.20-5.40); White Blood Cell (WBC) Count 6.8 thou/uL (4.8-10.8)
[2017-07-15] MEDS: Citalopram 10 MG TAB PO SCH (08:49)
[2017-07-15] MEDS: Aspirin 81 mg Enteric Coated Tablet PO SCH (08:49)
[2017-07-15] MEDS: Senokot S 8.6-50 MG TAB PO SCH ×2 (08:50→20:16)
[2017-07-15] MEDS: Docusate 100 MG CAP PO SCH ×2 (08:50→20:16)
[2017-07-15] MEDS: Polyethylene Glycol 3350 17 GM Packet PO SCH (08:50)
[2017-07-15] MEDS: metFORMIN 500 MG TAB PO SCH (16:49)
[2017-07-15] MEDS: Donepezil HCl 5 MG TAB PO SCH (20:16)
--- NOTE | 2017-07-15 22:17 | PRG ---
DATE OF SERVICE: 07/15/2017 SUBJECTIVE: The patient feels well, resting in bed with no complaints, minimal pain in her distal f emur, no pain at rest. There are no indigestion or heartburn. OBJECTIVE: VITAL SIGNS: Blood pressure is 133/59, temperature 97, pulse 73, respirations 20, and O2 sats 97% o n room air. LUNGS: Clear. HEART: Cardiac examination displays regular rhythm. No gallops or murmurs. ABDOMEN: Soft and nontender. SKIN AND EXTREMITIES: Display tenderness to palpation of the distal femur with no erythema or warmt h. LABORATORY DATA: White count 6800, hematocrit 37, and hemoglobin 11. ASSESSMENT: 1. Resolving distal femur fracture in brace. 2. No evidence for recurrent gastrointestinal bleed. Good appetite. No nausea or vomiting. 3. Stable diabetes. Controlled to goal. PLAN: Continue PT, OT. Continue pain relief. Continue to monitor Accu-Cheks.
[2017-07-16] MEDS: Acetaminophen 325 MG TAB PO SCH ×4 (02:53→20:33)
[2017-07-16] MEDS: Aspirin 81 mg Enteric Coated Tablet PO SCH (08:20)
[2017-07-16] MEDS: Citalopram 10 MG TAB PO SCH (08:20)
[2017-07-16] MEDS: Docusate 100 MG CAP PO SCH ×2 (08:22→20:34)
[2017-07-16] MEDS: Polyethylene Glycol 3350 17 GM Packet PO SCH (08:22)
[2017-07-16] MEDS: Senokot S 8.6-50 MG TAB PO SCH ×2 (08:22→20:34)
--- NOTE | 2017-07-16 09:55 | PRG ---
DATE OF SERVICE: 07/16/2017 DATE OF ADMISSION: 06/30/2017 HISTORY OF PRESENT ILLNESS: Ms. Rodríguez is a very pleasant 87-year-old black female that fell and f ractured her right hip. She had surgical correction with ORIF done and transferred to [facility] where she unfortunately had a GI bleed. She was transferred back to the hospital, stabilized, scope d by Dr. Shah and then transferred to [facility] for physical therapy and occupati onal therapy. SUBJECTIVE: The patient states she is doing well today. She is very happy. She has no complaints today. She is oriented to person, but not place or time. She does know that tomorrow her daughter will come, so we can have a conference about if she is going home or somewhere else. She has no complaints today. OBJECTIVE: VITAL SIGNS: Today reveal blood pressure is 119/72, pulse 63-73, respirations 16-20, O2 sat 96%-98% on room air, temperature max 97.9. GENERAL: This is a well-developed, well-nourished, very pleasant white female in no apparent distre ss at this time. HEENT: Reveals normocephalic, nontraumatic cranium. Pupils are equally round and reactive. Extrao cular movements intact. Nose and throat are somewhat dry. The patient does have a dip snuff this m orning. She states she has been dipping since she was age 4. NECK: Supple, without masses, nodes or bruits. CHEST: Clear to auscultation. No rales, rhonchi, wheezes or cough is heard. HEART: Reveals a regular rate and rhythm without murmurs, gallops or rubs. Patient does have a 2/6 systolic ejection murmur. ABDOMEN: Slightly obese, soft, nontender, without organomegaly. Normal bowel sounds are noted. No rebound or guarding is noted. Patient has bowel sounds in all 4 quadrants. : Deferred. EXTREMITIES: Reveals still right knee immobilizer intact. IMPRESSION: 1. Distal right femur fracture status post surgical correction. 2. Gastroesophageal reflux disease with resultant peptic ulcer disease and bleeding presently stabl e. 3. Anemia secondary to gastrointestinal bleed. 4. Chronic kidney disease. 5. Diabetes. 6. History of gastroesophageal reflux disease. 7. Cognitive deficits, advanced dementia. 8. DNR. 9. History of prior Escherichia coli urinary tract infection, resolved. 10. Constipation. PLAN: 1. The patient continues to be nonweightbearing. 2. Continue Aricept. 3. Continue present meds. 4. Scheduled for a conference meeting tomorrow with the patient's daughter about discharge planning . 5. Continue decubitus precautions. 6. Continue stress ulcer prophylaxis. 7. Continue DVT prophylaxis 8. PT and OT. 9. Probable placement.
[2017-07-16] MEDS: metFORMIN 500 MG TAB PO SCH (16:59)
[2017-07-16] MEDS: Donepezil HCl 5 MG TAB PO SCH (20:33)
[2017-07-17] MEDS: Acetaminophen 325 MG TAB PO SCH ×4 (03:09→20:44)
[2017-07-17] MEDS: Aspirin 81 mg Enteric Coated Tablet PO SCH (08:48)
[2017-07-17] MEDS: Docusate 100 MG CAP PO SCH ×2 (08:48→20:45)
[2017-07-17] MEDS: Citalopram 10 MG TAB PO SCH (08:48)
[2017-07-17] MEDS: Polyethylene Glycol 3350 17 GM Packet PO SCH (08:49)
[2017-07-17] MEDS: Senokot S 8.6-50 MG TAB PO SCH ×2 (08:50→20:45)
--- NOTE | 2017-07-17 09:56 | PRG ---
DATE OF SERVICE: 07/17/2017 HISTORY: Ms. Rodríguez is a very pleasant 87-year-old black female. Unfortunately, she fell at home and fractured her right hip. She had surgical correction with ORIF done and was transferred to [facility]. While at [facility] for a day or two she had a GI bleed, and was transferred back to [facility]. She was scoped by Dr. Shah and was not found to have any acute bleeding. She was transferred to [facility] for physical therapy and occupational therapy. SUBJECTIVE: The patient is found walking in the [place]. When I saw her she was sitting down, but she just finished walking 8 feet, I guess non-weightbearing. She is oriented to person, but not place or time. We are supposed to have a meeting today about 1:00 with her daughter to discuss discharge plans. I will be there, the patient and the patient's daughter and the senior care assistant. The patient has no significant complaints today. She does not complain of any pain anywhere. VITAL SIGNS: Blood pressure 125/61, pulse 63-72, respirations 16-20, O2 sat 96-98% room air. T-max 98.1. LABORATORY DATA: No labs were done today. Her fasting sugar this morning was 108, sugar before she went to bed last night was 129, before supper 115, before lunch 122. PHYSICAL EXAMINATION: GENERAL: This is a well-developed, well-nourished, pleasant black female, slightly confused, in no apparent distress at this time. HEENT: Reveals normocephalic, nontraumatic cranium. Pupils are equally round and reactive. Extrao cular movements intact. Nose and throat are dry. The patient is not dipping at this time. NECK: Supple, without masses, nodes or bruits. CHEST: Clear to auscultation. No rales, rhonchi or wheezes are heard. CARDIOVASCULAR: Reveals a regular rate and rhythm. Patient does have a 2/6 systolic ejection murmu r. ABDOMEN: Slightly obese. It is soft, nontender, without organomegaly. Normal bowel sounds are not ed. No rebound or guarding is noted. : Deferred. EXTREMITIES: Reveal right knee immobilized intact. IMPRESSION: 1. Distal right femur fracture status post open reduction internal fixation. 2. Gastroesophageal reflux disease with a result of peptic ulcer disease and a bleeding episode. 3. Anemia secondary to gastrointestinal bleed. 4. Chronic kidney disease. 5. Diabetes. 6. History of gastroesophageal reflux disease. 7. Cognitive deficits with dementia. 8. DNR. 9. History of prior Escherichia coli urinary tract infection, resolved. 10. Constipation. PLAN: 1. Continue the patient with physical therapy and occupational therapy, but she is nonweightbearing . 2. Continue Aricept. 3. Continue present medications. 4. Conference meeting today with the patient's daughter about discharge planning. 5. Continue decubitus precautions. 6. Stress ulcer prophylaxis. 7. DVT prophylaxis. 8. Continue physical therapy and occupational therapy. 9. Placement.
[2017-07-17] MEDS: metFORMIN 500 MG TAB PO SCH (16:43)
[2017-07-17] MEDS: Donepezil HCl 5 MG TAB PO SCH (20:44)
[2017-07-18] MEDS: Acetaminophen 325 MG TAB PO SCH ×4 (05:48→20:45)
[2017-07-18] MEDS: Senokot S 8.6-50 MG TAB PO SCH ×2 (08:26→20:46)
[2017-07-18] MEDS: Citalopram 10 MG TAB PO SCH (08:26)
[2017-07-18] MEDS: Aspirin 81 mg Enteric Coated Tablet PO SCH (08:26)
[2017-07-18] MEDS: Docusate 100 MG CAP PO SCH ×2 (08:27→20:46)
[2017-07-18] MEDS: Polyethylene Glycol 3350 17 GM Packet PO SCH (08:27)
--- NOTE | 2017-07-18 14:03 | PRG ---
DATE OF SERVICE: 07/18/2017 DATE OF ADMISSION: 06/30/2017 HISTORY OF PRESENT ILLNESS: Ms. Rodríguez is a very pleasant 87-year-old white female that fell at [facility]. She unfortunately had a fracture of right hip and was taken to the surgical suite where she had ORIF done. She was transferred to [facility] for further evaluation. The patient had a GI bleed, transferred back to [facility] and not found to have a source f or acute bleeding. She was transferred to [facility] for physical therapy and occup ational therapy. SUBJECTIVE: The patient states she is doing well. She states she walked much better. Her pain is much less. She is still nonweightbearing, but she is walking with a walker and being weightbearing. There was a meeting yesterday with physical therapy and occupational therapy and the patient will st ill qualify she continues to gradually get better. The patient's daughter came in yesterday. There was a conference meeting and they are going to try to bring her home since they have considerable support at home in someone pretty much stable 24 hour s a day. The patient states she is feeling well today. She has no complaints, states she is feeling better a nd ate really well today. PHYSICAL EXAMINATION: VITAL SIGNS: Reveal blood pressure is 113/56, pulse 67-75, respirations 18-20, O2 sat 96%-98% on ro om air, temperature max is 98.1. Fasting sugar this morning was 87, before bedtime last 110, before lunch 139, fasting yesterday was 108. GENERAL: This is a well-developed, well-nourished, thin, black female in no apparent distress at th is time. HEENT: Reveals normocephalic, nontraumatic cranium. Pupils are equally round and reactive. Extrao cular movements intact. Nose and throat are slightly dry, but clear. NECK: Supple, without masses, nodes or bruits. LUNGS: Chest is clear to auscultation. No rales, rhonchi, wheezes or cough are heard. HEART: Reveals a regular rate and rhythm. Patient does have a 2/6 systolic ejection murmur. ABDOMEN: Soft, nontender, without organomegaly, normal bowel sounds are noted. No rebound or guard ing is noted. : Exam is deferred. EXTREMITIES: Reveal no clubbing, cyanosis or edema. Right leg immobilizer is still intact. IMPRESSION: 1. Right femur fracture distally, status post open reduction and internal fixation, and nonweightbe aring. 2. Gastroesophageal reflux disease with peptic ulcer disease, no bleeding episode. 3. Anemia secondary to gastrointestinal bleed. 4. Chronic kidney disease. 5. Diabetes. 6. History of gastroesophageal reflux disease. 7. Cognitive deficits with dementia. 8. DO NOT RESUSCITATE. 9. History of Escherichia coli urinary tract infection, resolved. 10. Constipation. PLAN: 1. Continue present medications. 2. Continue physical therapy and occupational therapy. 3. DVT prophylaxis. 4. Decubitus precautions. 5. Stress ulcer prophylaxis. 6. Continue physical therapy and occupational therapy. 7. Continue Aricept and present medications. 8. Patient will be returning to her home in 2-3 weeks depending on how well she progresses in physi sam therapy and occupational therapy.
[2017-07-18] MEDS: metFORMIN 500 MG TAB PO SCH (17:03)
[2017-07-18] MEDS: Donepezil HCl 5 MG TAB PO SCH (20:45)
[2017-07-19] MEDS: Acetaminophen 325 MG TAB PO SCH ×4 (04:24→20:33)
[2017-07-19] MEDS: Senokot S 8.6-50 MG TAB PO SCH ×2 (08:25→20:33)
[2017-07-19] MEDS: Aspirin 81 mg Enteric Coated Tablet PO SCH (08:25)
[2017-07-19] MEDS: Citalopram 10 MG TAB PO SCH (08:25)
[2017-07-19] MEDS: Docusate 100 MG CAP PO SCH ×2 (08:26→20:33)
[2017-07-19] MEDS: Polyethylene Glycol 3350 17 GM Packet PO SCH (08:27)
--- NOTE | 2017-07-19 10:17 | PRG ---
DATE OF SERVICE: 07/19/2017 HISTORY OF PRESENT ILLNESS: Ms. Rodríguez is a very pleasant 87-year-old white female that fell and h ad a right femur fracture. She was taken to [facility] and had open reduction internal fix ation and then transferred to [facility]. Within a couple of days, she had a GI bleed, sent back to [facility] where Dr. Shah scoped her, but could not find a sourc e. She was transferred to [facility] for physical therapy and occupational therapy. SUBJECTIVE: The patient states she is doing very well. She states she is eating well, but she does not like much for breakfast. She normally only drinks a cup of coffee. She is doing much better. She has no complaints today and she states she is doing well. VITAL SIGNS: Today reveal a blood pressure this morning was good at 137/64, pulse 67-77, respiratio ns 18-20, O2 sat 97-100% on room air, T-max 98.0. PHYSICAL EXAMINATION: GENERAL: This is a well-developed, well-nourished, very pleasant black female in no apparent distre ss at this time. HEENT: Reveals normocephalic, nontraumatic cranium. Pupils are equally round and reactive. Extrao cular movements intact. Nose and throat are slightly dry. NECK: Supple, without masses, nodes or bruits. CHEST: Clear to auscultation. No rales, rhonchi or wheezes are heard. CARDIOVASCULAR: Reveals a regular rate and rhythm. A 2/6 systolic ejection murmur still heard. ABDOMEN: Soft, nontender, without organomegaly, normal bowel sounds are noted. : Deferred. EXTREMITIES: Reveal no clubbing, cyanosis or edema. IMPRESSION: 1. Right femur fracture distally status post open reduction internal fixation, nonweightbearing. 2. Gastroesophageal reflux disease with peptic ulcer disease, no bleeding episodes at this time. 3. Anemia secondary to gastrointestinal bleed. 4. Chronic kidney disease which is stable. 5. Diabetes, which is stable. 6. Gastroesophageal reflux, which has no complaints at this time. 7. Cognitive deficits with dementia is stable. A DNR. 8. History of Escherichia coli urinary tract infection, resolved. 9. Constipation, stable. PLAN: 1. Continue physical therapy and occupational therapy. 2. Continue deep venous thrombosis prophylaxis. 3. Continue decubitus precautions. 4. Stress ulcer prophylaxis. 5. Continue physical therapy and occupational therapy to increase her strength and stamina. 6. Continue Aricept. 7. Continue present medications. 8. The patient will be discharged to the care of her family as she continues to progress.
[2017-07-19] MEDS: metFORMIN 500 MG TAB PO SCH (17:38)
[2017-07-19] MEDS: Donepezil HCl 5 MG TAB PO SCH (20:33)
[2017-07-20] MEDS: Acetaminophen 325 MG TAB PO SCH ×4 (05:27→20:36)
[2017-07-20] MEDS: Citalopram 10 MG TAB PO SCH (08:41)
[2017-07-20] MEDS: Aspirin 81 mg Enteric Coated Tablet PO SCH (08:41)
[2017-07-20] MEDS: Docusate 100 MG CAP PO SCH ×2 (08:41→20:36)
[2017-07-20] MEDS: Polyethylene Glycol 3350 17 GM Packet PO SCH (08:41)
[2017-07-20] MEDS: Senokot S 8.6-50 MG TAB PO SCH ×2 (08:42→20:36)
--- NOTE | 2017-07-20 15:23 | PRG ---
DATE OF SERVICE: 07/20/2017 DATE OF ADMISSION: 06/30/2017 HISTORY OF PRESENT ILLNESS: Ms. Rodríguez is a very pleasant 87-year-old black female that fell and f ractured her right femur distally. She was taken to [facility] and had open reduction and internal fixation and was transferred to [facility]. At [facility], after a couple of days, she had a GI bleed, and was sent back to [facility] where Dr. Shah scoped her, but could not find a source of bleeding. She was then transferred to [facility] for physical the rapy and occupational therapy. SUBJECTIVE: The patient states she is doing very well. Patient states she is eating almost all of her every meal and states she is getting much stronger when she participates in physical therapy and much wiser as she says. PHYSICAL EXAMINATION: VITAL SIGNS: Today reveal blood pressure was 143/68, pulse 69-74, respirations 18-22, O2 sat 95%-99 % on room air. T-max 96.8. GENERAL: This is a well-developed, well-nourished, very pleasant, elderly black female in no appare nt distress at this time. HEENT: Reveals normocephalic, nontraumatic cranium. Pupils are equally round and reactive. Extrao cular movements intact. Nose and throat are slightly dry. NECK: Supple, without masses, nodes or bruits. CHEST: Clear to auscultation. No rales, rhonchi or wheezes are heard. HEART: Reveals a regular rate and rhythm. A 2/6 systolic ejection murmur is still heard. ABDOMEN: Soft, nontender, without organomegaly, normal bowel sounds are noted. No rebound or guard ing is noted. GENITOURINARY: Deferred. EXTREMITIES: Reveal no clubbing, cyanosis or edema. IMPRESSION: 1. Right femur fracture distally, status post open reduction and internal fixation and nonweightbea ring. 2. Gastroesophageal reflux disease with peptic ulcer disease. No bleeding episodes in last several days. 3. Anemia secondary to gastrointestinal bleed. 4. Chronic kidney disease, stable. 5. Diabetes, stable. 6. Gastroesophageal reflux, stable. 7. Cognitive deficits and dementia, stable. 8. DO NOT RESUSCITATE. 9. History of Escherichia coli urinary tract infection, resolved. 10. Constipation. PLAN: 1. Continue DVT and stress ulcer prophylaxis. 2. Continue decubitus precautions. 3. Continue stress ulcer prophylaxis. 4. Continue physical therapy and occupational therapy. 5. Continue Aricept. 6. Continue present medications. 7. Discharge per case management to home when the patient has reached suitable goals for physical t herapy and occupational therapy.
[2017-07-20] MEDS: metFORMIN 500 MG TAB PO SCH (17:27)
[2017-07-20] MEDS: Donepezil HCl 5 MG TAB PO SCH (20:36)
[2017-07-21] MEDS: Acetaminophen 325 MG TAB PO SCH ×4 (05:26→20:46)
[2017-07-21] MEDS: Citalopram 10 MG TAB PO SCH (08:38)
[2017-07-21] MEDS: Aspirin 81 mg Enteric Coated Tablet PO SCH (08:38)
[2017-07-21] MEDS: Docusate 100 MG CAP PO SCH ×2 (08:39→20:46)
[2017-07-21] MEDS: Senokot S 8.6-50 MG TAB PO SCH ×2 (08:39→20:47)
[2017-07-21] MEDS: Polyethylene Glycol 3350 17 GM Packet PO SCH ×2 (08:39→08:42)
--- NOTE | 2017-07-21 09:40 | PRG ---
DATE OF SERVICE: 07/21/2017 SUBJECTIVE: The patient feels well. No complaints, eating well, getting up with assistance with tr ansfers, having no nausea, vomiting or abdominal pain. OBJECTIVE: VITAL SIGNS: Shows temperature is 97.6, pulse 69, respirations 18, O2 sats 97%, blood pressure 135/ 64. LUNGS: Clear. CARDIAC: Examination showed regular rhythm. ABDOMEN: Soft and nontender. SKIN AND EXTREMITIES: Show healing right femur fracture. ASSESSMENT: 1. Resolving right femur fracture, status post open reduction and internal fixation. 2. Stable peptic ulcer disease with no evidence for recurrent bleeding. 3. Stable chronic kidney disease. 4. Stable diabetes. PLAN: 1. Continue OT, PT. 2. Continue DVT and stress ulcer prophylaxis. 3. Continue to monitor for recurrent bleeding.
[2017-07-21] MEDS: metFORMIN 500 MG TAB PO SCH (16:57)
[2017-07-21] MEDS: Donepezil HCl 5 MG TAB PO SCH (20:46)
[2017-07-22] MEDS: Acetaminophen 325 MG TAB PO SCH ×4 (04:19→20:55)
--- NOTE | 2017-07-22 08:22 | PRG ---
DATE OF SERVICE: 07/22/2017 SUBJECTIVE: The patient feels well, lying in the bed, but does not wish to get up today. She state s she is having some pain in her hip upon movement, but not at rest. Denies any nausea, vomiting, d iarrhea, indigestion, weakness or dizziness. OBJECTIVE: VITAL SIGNS: Showed blood pressure 137/61, temperature 97, pulse 70, respirations 18, O2 sats 99%. LUNGS: Clear. CARDIAC: Examination showed regular rhythm. EXTREMITIES: Right hip shows tenderness upon movement, but no significant bruising or swelling. ASSESSMENT: 1. Resolving right femur fracture, but persistent with decreasing pain. 2. Distant gastrointestinal bleed. No evidence for recurrence with probable diagnosis of gastroeso phageal reflux and peptic ulcer. 3. Chronic kidney disease, stable. PLAN: Repeat CBC and basic metabolic panel. Continue DVT. Continue stress ulcer prophylaxis. Con tinue PT and OT as tolerated.
[2017-07-22] MEDS: Senokot S 8.6-50 MG TAB PO SCH ×2 (08:47→20:56)
[2017-07-22] MEDS: Polyethylene Glycol 3350 17 GM Packet PO SCH (08:47)
[2017-07-22] MEDS: Docusate 100 MG CAP PO SCH ×2 (08:47→20:55)
[2017-07-22] MEDS: Aspirin 81 mg Enteric Coated Tablet PO SCH (08:47)
[2017-07-22] MEDS: Citalopram 10 MG TAB PO SCH (08:47)
[2017-07-22 10:10] LABS: Anion Gap 14 mmol/L (10-20); BUN (Urea Nitrogen) 9 mg/dL (9.8-20.1); Calc. Creatinine Clearance 68 mL/min (70-130); Calcium 9.3 mg/dL (7.8-10.44); Carbon Dioxide 26 mmol/L (23-31); Chloride 102 mmol/L (98-107); Estimated GFR-MDRD Greater than 90; Glucose 107 mg/dL (83-110); Potassium 4.2 mmol/L (3.5-5.1); Sodium 138 mmol/L (136-145)
[2017-07-22 11:23] LABS: #Basophils 0.1 thou/uL (0.0-0.2); #Eosinphils 0.1 thou/uL (0.0-0.7); #Lymphocytes 2.4 thou/uL (1.20-3.40); #Monocytes 0.5 thou/uL (0.11-0.59); #Neutrophils 4.6 thou/uL (1.40-6.50); %Eosinophils 1.8 % (0.0-10.0); %Lymphocytes 30.9 % (21.0-51.0); %Monocytes 6.1 % (0.0-10.0); %Neutrophils 60.2 % (42.0-75.0); Hemoglobin 12.8 g/dL (12.0-16.0); Mean Corpuscular HGB CONC 32.4 g/dL (32.0-36.0); Mean Corpuscular Hemoglobin 31.4 pg (27.0-31.0); Mean Corpuscular Volume 97.1 fl (81.0-99.0); Mean Platelet Volume 5.6 fL (7.4-10.4); Platelet Count 261 thou/uL (130-400); RBC Distribution Width 13.4 % (11.5-14.5); Red Blood Cell (RBC) Count 4.09 mill/uL (4.20-5.40); White Blood Cell (WBC) Count 7.6 thou/uL (4.8-10.8)
[2017-07-22] MEDS: metFORMIN 500 MG TAB PO SCH (17:04)
[2017-07-22] MEDS: Donepezil HCl 5 MG TAB PO SCH (20:55)
[2017-07-23] MEDS: Acetaminophen 325 MG TAB PO SCH ×4 (04:35→20:52)
[2017-07-23] MEDS ORDERED: FLU VACC TS2017-18 (>65YR) 0.5 ML SYRINGE IM ONE (09:00)
[2017-07-23] MEDS: Aspirin 81 mg Enteric Coated Tablet PO SCH (09:05)
[2017-07-23] MEDS: Citalopram 10 MG TAB PO SCH (09:05)
[2017-07-23] MEDS: Docusate 100 MG CAP PO SCH ×2 (09:06→20:53)
[2017-07-23] MEDS: Senokot S 8.6-50 MG TAB PO SCH ×2 (09:06→20:53)
[2017-07-23] MEDS: Polyethylene Glycol 3350 17 GM Packet PO SCH (09:06)
[2017-07-23] MEDS: metFORMIN 500 MG TAB PO SCH (17:43)
--- NOTE | 2017-07-23 17:51 | PRG ---
DATE OF SERVICE: 07/23/2017 DATE OF ADMISSION: 06/30/2017 HISTORY OF PRESENT ILLNESS: The patient is an 87-year-old black female, very pleasant that fell and fractured right femur distally. She was taken to [facility] and had open reduction and in ternal fixation done. She was then transferred to [facility] and while there had a GI bleed. She was sent back to [facility] where Dr. Shah scoped her, but could not find a source of he r bleeding. Then transferred back to [facility] for PT and OT. SUBJECTIVE: The patient states she is doing well today. She is upset because she said that her fam phillip is trying to sell her land. PHYSICAL EXAMINATION: VITAL SIGNS: Reveal blood pressure 128/62, pulse 65-70, respirations 18-20, O2 sat 96%-99%, T-max i s 97.8. GENERAL: This is a well-developed, well-nourished, pleasant black female in no apparent distress at this time. HEENT: Reveals normocephalic, nontraumatic cranium. Pupils are equally round and reactive. Extrao cular movements intact, but slightly dry. NECK: Supple, without masses, nodes or bruits. LUNGS: Chest is clear to auscultation. The patient has no cough. The patient has no rales, no rho nchi, no wheezes. HEART: Reveals a regular rate and rhythm. The patient does have a 2/6 systolic ejection murmur. ABDOMEN: Soft and nontender, without organomegaly, normal bowel sounds are noted. No rebound or gu arding is noted. : Deferred. EXTREMITIES: Reveal generalized weakness, but no clubbing, cyanosis or edema. The patient does hav e her leg brace on the right side. LABORATORY DATA: Laboratories done yesterday reveal white count 7,000 with hemoglobin 12.8, hematoc rit 39.7, platelet count 261,000. Sodium 138, potassium 4.2, chloride 102, carbon dioxide 26 with B UN of 9, creatinine 0.68, sugars are all good. ASSESSMENT: 1. Right femur fracture distally status post open reduction and internal fixation, still nonweightb earing. 2. Gastroesophageal reflux disease with peptic ulcer disease. No bleeding episodes in the last sev eral days. 3. Anemia secondary to gastrointestinal bleed. 4. Chronic kidney disease which is stable. 5. Diabetes, stable. 6. Gastroesophageal reflux disease. 7. Cognitive deficits and dementia. 8. DO NOT RESUSCITATE. 9. Constipation. PLAN: 1. Continue to follow the patient's Accu-Cheks a.c. and at bedtime. 2. Continue physical therapy and occupational therapy. 3. Continue DVT prophylaxis. 4. Continue stress ulcer prophylaxis. 5. Continue Aricept. 6. Continue present meds. 7. Case management meeting again tomorrow for discharge planning. 8. Continue physical therapy and occupational therapy.
[2017-07-23] MEDS: Donepezil HCl 5 MG TAB PO SCH (20:53)
[2017-07-23] MEDS ORDERED: FLU VACC QS2017-18 36 mo. & older 0.5 ML SYRINGE IM ONE (21:00)
[2017-07-24] MEDS: Acetaminophen 325 MG TAB PO SCH ×4 (05:58→21:01)
[2017-07-24] MEDS: Docusate 100 MG CAP PO SCH ×2 (08:57→21:01)
[2017-07-24] MEDS: Polyethylene Glycol 3350 17 GM Packet PO SCH (08:58)
[2017-07-24] MEDS: Senokot S 8.6-50 MG TAB PO SCH ×2 (08:58→21:01)
[2017-07-24] MEDS: Aspirin 81 mg Enteric Coated Tablet PO SCH (08:59)
[2017-07-24] MEDS: Citalopram 10 MG TAB PO SCH (08:59)
[2017-07-24] MEDS ORDERED: FLU VACC QS2017-18 36 mo. & older 0.5 ML SYRINGE IM ONE (09:00)
[2017-07-24] MEDS: metFORMIN 500 MG TAB PO SCH (16:39)
[2017-07-24] MEDS: Donepezil HCl 5 MG TAB PO SCH (21:01)
--- NOTE | 2017-07-24 21:27 | PRG ---
DATE OF ADMISSION: 06/30/2017 DATE OF SERVICE: 07/24/2017 SUBJECTIVE: Ms. Rodríguez is a very pleasant 87-year-old black female, confused at times. Yesterday she felt that her family was selling all her lands, very tearful about that. She is much pleasant a nd has forgotten that today. She has no complaints and states she is doing well and walking better. OBJECTIVE: VITAL SIGNS: Reveal blood pressure 117/55, pulse 69-75, respirations 17-18, O2 sat 97%. Weight 161 pounds. GENERAL: This is a well-developed, well-nourished, elderly black female in no apparent distress at this time. HEENT: Reveals normocephalic, nontraumatic cranium. Pupils are equally round and reactive. Extrao cular movements intact. Nose and throat are dry, but clear. NECK: Supple, without masses, nodes or bruits. CHEST: Clear to auscultation. No rales, rhonchi, wheezes or cough is heard. HEART: Reveals a regular rate and rhythm. The patient has a 2/6 systolic ejection murmur which is unchanged. ABDOMEN: Soft, nontender, without organomegaly, normal bowel sounds are noted. No rebound or guard ing is noted. : Deferred. EXTREMITIES: Reveal generalized weakness. The patient continues to wear her long leg brace on the right side. ASSESSMENT: 1. Right femoral fracture distally status post open reduction internal fixation, still nonweightbea ring. 2. Gastroesophageal reflux disease with peptic ulcer disease, no bleeding. 3. Anemia secondary to gastrointestinal bleed. 4. Chronic kidney disease, stable. 5. Diabetes, stable. 6. Gastroesophageal reflux, stable. 7. Cognitive deficit since dementia unchanged. 8. The patient is a DNR. 9. Constipation. PLAN: 1. Continue to monitor the patient in consultation. 2. We will continue to monitor the patient Accu-Cheks a.c. and at bedtime. 3. Continue DVT and stress ulcer prophylaxis. 4. Continue Aricept. 5. Management meeting supposed to be done today. I do not see any results of that.
[2017-07-25] MEDS: Acetaminophen 325 MG TAB PO SCH ×5 (05:30→20:47)
[2017-07-25] MEDS: Citalopram 10 MG TAB PO SCH (08:31)
[2017-07-25] MEDS: Aspirin 81 mg Enteric Coated Tablet PO SCH (08:31)
[2017-07-25] MEDS: Docusate 100 MG CAP PO SCH ×2 (08:31→20:48)
[2017-07-25] MEDS: Polyethylene Glycol 3350 17 GM Packet PO SCH (08:32)
[2017-07-25] MEDS: Senokot S 8.6-50 MG TAB PO SCH ×2 (08:32→20:48)
[2017-07-25] MEDS: metFORMIN 500 MG TAB PO SCH (16:47)
[2017-07-25] MEDS: Donepezil HCl 5 MG TAB PO SCH (20:48)
--- NOTE | 2017-07-26 00:10 | PRG ---
DATE OF ADMISSION: 06/30/2017 DATE OF SERVICE: 07/25/2017 HISTORY OF PRESENT ILLNESS: Ms. Rodríguez is a very pleasant 87-year-old black female that fell at [facility] and fractured her right hip. She had ORIF done and was transferred eventually to [facility] for physical therapy and occupational therapy. The patient states she is doing very well. She states she did well on physical therapy today. She is non-weightbearing. She was told that she is scheduled to go home next Sunday by that time she should have the ramp built to her house. She is eating well and has no complaints today. PHYSICAL EXAMINATION: VITAL SIGNS: Blood pressure 130/58, pulse 74-77, respirations 18-20, O2 sat 96%-98%. T-max 98.8. Accu-Cheks reveal a fasting sugar this morning 94, before lunch 117, before supper 103. GENERAL: This is a well-developed, pleasant black female, in no apparent distress at this time. HEENT: Reveals normocephalic, nontraumatic cranium. Pupils are equally round and reactive. Extrao cular movements are intact. Nose and throat are still dry. NECK: Supple, without masses, nodes or bruits. LUNGS: Chest is clear. Breath sounds are distant, but no rales, rhonchi, wheezes or cough is heard . CARDIOVASCULAR: The patient has a regular rate and rhythm. The patient also has a 2/6 systolic eje ction murmur. ABDOMEN: Soft, slightly obese, nontender, without organomegaly, normal bowel sounds are noted. No rebound or guarding is noted. GENITOURINARY: Deferred. EXTREMITIES: Reveal no clubbing, cyanosis or edema. The patient continues to have her long leg bra ce on the right side. ASSESSMENT: 1. Right femoral fracture distally. Status post open reduction and internal fixation, still nonwei ghtbearing. 2. Anemia, secondary to gastrointestinal bleed. 3. Chronic kidney disease, stable. 4. Diabetes, stable. 5. Gastroesophageal reflux disease, stable. 6. Cognitive deficits since dementia, unchanged. 7. The patient is a DNR. 8. Constipation, improved. PLAN: 1. Continue to follow the patient's blood pressure. 2. Continue to follow the patient's Accu-Cheks a.c. and at bedtime. 3. Continue DVT and stress ulcer prophylaxis. 4. Continue Aricept. 5. Continue physical therapy and occupational therapy. 6. Discharge, expected next Sunday.
[2017-07-26] MEDS: Acetaminophen 325 MG TAB PO SCH ×4 (05:31→20:04)
[2017-07-26] MEDS: Aspirin 81 mg Enteric Coated Tablet PO SCH (08:55)
[2017-07-26] MEDS: Citalopram 10 MG TAB PO SCH (08:56)
[2017-07-26] MEDS: Docusate 100 MG CAP PO SCH ×2 (08:56→20:03)
[2017-07-26] MEDS: Senokot S 8.6-50 MG TAB PO SCH ×2 (08:56→20:03)
[2017-07-26] MEDS: Polyethylene Glycol 3350 17 GM Packet PO SCH (08:56)
[2017-07-26] MEDS: metFORMIN 500 MG TAB PO SCH (17:10)
[2017-07-26] MEDS: Donepezil HCl 5 MG TAB PO SCH (20:03)
--- NOTE | 2017-07-26 21:12 | PRG ---
DATE OF ADMISSION: 06/30/2017 DATE OF SERVICE: 07/26/2017 HISTORY OF PRESENT ILLNESS: Ms. Rodríguez is a very pleasant 87-year-old black female. She is found sitting in her bed, braiding her hair this afternoon. She states she is doing better and she is exc ited about going home next Sunday. Ms. Rodríguez actually fell at home and fractured her right hip. She had an ORIF done and was transfe rred eventually from [facility] to [place] for physical therapy and occupational therapy. Physical examination reveals vital signs of blood pressure 120/58, pulse 71 to 77, respirations 18 t o 20, O2 sat 96% to 98%. T-max 98.8. Point of care sugars reveal fasting this morning 94, before lunch 125, and before bedtime 117. PHYSICAL EXAMINATION: GENERAL: This is a well-developed, well-nourished, pleasant black female, in no apparent distress a t this time. HEENT: Reveals normocephalic, nontraumatic cranium. Pupils are equally round and reactive. Extrao cular movements are intact. Nose and throat are dry. NECK: Supple without masses, nodes, or bruits. CHEST: Clear to auscultation, but distant. No rales, rhonchi, wheezes, or cough is heard. HEART: Reveals a regular rate and rhythm. The patient does have a 2/6 systolic ejection murmur. ABDOMEN: Soft, nontender, without organomegaly. Normal bowel sounds are noted. No rebound or guar ding is noted. GENITOURINARY: Deferred. EXTREMITIES: Reveal no clubbing, cyanosis, or edema. The patient continues to appropriately wear h er long leg brace. ASSESSMENT: 1. Right femoral fracture distally. 2. Status post open reduction and internal fixation with the patient is still nonweightbearing. 3. Anemia secondary to gastrointestinal bleed, which has been stable. 4. Chronic kidney disease. 5. Diabetes, stable. 6. Gastroesophageal reflux disease, stable. 7. Cognitive deficits with mild dementia, unchanged. 8. Patient is DNR. 9. Constipation, improved. PLAN: 1. Continue to monitor the patient's blood pressure closely. 2. Monitor the patient's diabetes with Accu-Cheks a.c. and at bedtime. 3. Continue deep venous thrombosis prophylaxis. 4. Continue stress ulcer prophylaxis. 5. Continue decubitus precautions. 6. Continue present medications. 7. Continue physical therapy and occupational therapy. 8. We expect to discharge this patient next Sunday if she continues on her current course.
[2017-07-27] MEDS: Acetaminophen 325 MG TAB PO SCH ×4 (05:11→21:18)
--- NOTE | 2017-07-27 08:04 | PRG ---
DATE OF SERVICE: 07/27/2017 HISTORY OF PRESENT ILLNESS: Ms. Tamiko Rodríguez is a very pleasant 87-year-old black female. This morning she is awakened and has no complaints. She states she is doing well. She states she knows she is going home sometimes in the next several days. We did talk about her going home on and they build the ramp getting into her house. She has a daughter that will be staying with her. Ms. Rodríguez has no complaints today, states she is doing well. VITAL SIGNS: Blood pressure this morning is 139/65, pulse 71-77, respirations 18-20, O2 sat 96-97% on room air, T-max 98.8. LABORATORY: Point of care glucoses reveal fasting this morning is 95, last night before bedtime 120 , before supper 117, before lunch 125, yesterday morning fasting was 94. PHYSICAL EXAMINATION: GENERAL: This is a well-developed, well-nourished, pleasant black female in no apparent distress at this time. HEENT: Reveals normocephalic, nontraumatic cranium. Pupils are equally round and reactive. Extrao cular movements intact. Nose and throat are mildly dry today. NECK: Supple, without masses, nodes or bruits. CHEST: Clear to auscultation, but distant. Breath sounds are shallow, but clear. No rales, rhonch i, wheezes or cough is heard. CARDIOVASCULAR: Reveals a regular rate and rhythm. The patient does have a 2/6 systolic ejection m urmur. ABDOMEN: Soft, nontender, without organomegaly, normal bowel sounds are noted. No rebound or guard ing is noted. : Deferred. EXTREMITIES: Reveal no clubbing, cyanosis or edema. The patient has her long leg brace on. ASSESSMENT: 1. Right distal femur fracture status post open reduction internal fixation. 2. The patient remains nonweightbearing. 3. Anemia secondary to a prior GI bleed. 4. Chronic kidney disease. 5. Diabetes, stable. 6. Gastroesophageal reflux, stable. 7. Cognitive deficits with mild dementia, stable. 8. The patient is DNR. 9. Constipation, improved. PLAN: 1. Continue to monitor the patient's blood pressure closely. 2. Continue to monitor patient diabetes with Accu-Cheks a.c. and at bedtime. 3. Continue deep venous thrombosis prophylaxis. 4. Continue stress ulcer prophylaxis. 5. Continue decubitus precautions. 6. Continue present meds. 7. Continue physical therapy and occupational therapy. 8. Expectant discharge date is this next Sunday.
[2017-07-27] MEDS: Polyethylene Glycol 3350 17 GM Packet PO SCH (09:01)
[2017-07-27] MEDS: Docusate 100 MG CAP PO SCH ×2 (09:01→21:18)
[2017-07-27] MEDS: Senokot S 8.6-50 MG TAB PO SCH ×2 (09:01→21:18)
[2017-07-27] MEDS: Aspirin 81 mg Enteric Coated Tablet PO SCH (09:01)
[2017-07-27] MEDS: Citalopram 10 MG TAB PO SCH (09:01)
[2017-07-27] MEDS: metFORMIN 500 MG TAB PO SCH (17:02)
[2017-07-27] MEDS: Donepezil HCl 5 MG TAB PO SCH (21:18)
[2017-07-28] MEDS: Acetaminophen 325 MG TAB PO SCH ×4 (02:41→21:27)
[2017-07-28 05:48] LABS: #Basophils 0.1 thou/uL (0.0-0.2); #Eosinphils 0.1 thou/uL (0.0-0.7); #Lymphocytes 2.3 thou/uL (1.20-3.40); #Monocytes 0.4 thou/uL (0.11-0.59); #Neutrophils 3.3 thou/uL (1.40-6.50); %Basophils 1.5 % (0.0-1.0); %Eosinophils 1.8 % (0.0-10.0); %Neutrophils 52.8 % (42.0-75.0); Hemoglobin 11.9 g/dL (12.0-16.0); Mean Corpuscular HGB CONC 31.8 g/dL (32.0-36.0); Mean Corpuscular Hemoglobin 31.1 pg (27.0-31.0); Mean Corpuscular Volume 97.7 fl (81.0-99.0); Mean Platelet Volume 5.8 fL (7.4-10.4); Platelet Count 219 thou/uL (130-400); RBC Distribution Width 13.3 % (11.5-14.5); Red Blood Cell (RBC) Count 3.82 mill/uL (4.20-5.40); White Blood Cell (WBC) Count 6.3 thou/uL (4.8-10.8)
[2017-07-28 05:58] LABS: Anion Gap 12 mmol/L (10-20); BUN (Urea Nitrogen) 12 mg/dL (9.8-20.1); Calc. Creatinine Clearance 68 mL/min (70-130); Calcium 9.2 mg/dL (7.8-10.44); Carbon Dioxide 27 mmol/L (23-31); Chloride 104 mmol/L (98-107); Estimated GFR-MDRD Greater than 90; Glucose 98 mg/dL (83-110); Potassium 4.3 mmol/L (3.5-5.1); Sodium 139 mmol/L (136-145)
[2017-07-28] MEDS: Polyethylene Glycol 3350 17 GM Packet PO SCH (08:33)
[2017-07-28] MEDS: Aspirin 81 mg Enteric Coated Tablet PO SCH (08:33)
[2017-07-28] MEDS: Docusate 100 MG CAP PO SCH ×2 (08:33→21:26)
[2017-07-28] MEDS: Citalopram 10 MG TAB PO SCH (08:33)
[2017-07-28] MEDS: Senokot S 8.6-50 MG TAB PO SCH ×2 (08:34→21:27)
--- NOTE | 2017-07-28 11:54 | PRG ---
DATE OF SERVICE: 07/28/2017 SUBJECTIVE: The patient feels well, lying in bed, resting, does not want to get out of bed, but has no complaints. OBJECTIVE: Blood pressure 116/56, temperature 98, pulse 64, respirations 18. White count 6300, hem atocrit 37, hemoglobin 11.9. Accu-Cheks are stable at 95-143. Sodium 139, potassium 4.3, chloride 104, bicarb 27, BUN 12, creatinine 0.68. ASSESSMENT: 1. Resolving right distal femur fracture with persistent nonweightbearing status. 2. Stable anemia. No evidence of recurrent bleed. 3. Chronic kidney disease, stable. Chronic kidney disease has resolved. 4. Stable diabetes. PLAN: Continue to monitor vital signs. Continue PT, OT. Discharge planning.
[2017-07-28] MEDS: metFORMIN 500 MG TAB PO SCH (17:24)
[2017-07-28] MEDS: Donepezil HCl 5 MG TAB PO SCH (21:27)
[2017-07-29] MEDS: Acetaminophen 325 MG TAB PO SCH ×4 (03:05→21:19)
[2017-07-29] MEDS: Aspirin 81 mg Enteric Coated Tablet PO SCH (08:53)
[2017-07-29] MEDS: Senokot S 8.6-50 MG TAB PO SCH ×2 (08:54→21:19)
[2017-07-29] MEDS: Docusate 100 MG CAP PO SCH ×2 (08:54→21:18)
[2017-07-29] MEDS: Citalopram 10 MG TAB PO SCH (08:54)
[2017-07-29] MEDS: Polyethylene Glycol 3350 17 GM Packet PO SCH (09:08)
--- NOTE | 2017-07-29 11:39 | PRG ---
DATE OF SERVICE: 07/29/2017 SUBJECTIVE: The patient lying in bed, visiting with friends, in no acute distress, stating she is p reparing for discharge and the family is ready to take her home. OBJECTIVE: VITAL SIGNS: Showed blood pressure 150/70, O2 sats 97%, respirations 20, pulse 77, afebrile. LUNGS: Clear. CARDIAC: Examination shows regular rhythm. ABDOMEN: Soft and nontender. SKIN AND EXTREMITIES: Showed no edema, clubbing, or cyanosis. Right leg still shows significant te nderness on palpation. ASSESSMENT: Persistent pain from the right distal femur fracture, stable anemia, stable chronic kid chen disease. In fact, has resolved, stable diabetes. PLAN: Discuss discharge planning with PCP. Continue distress. The patient is need to be up in the chair, but is refusing at this time.
[2017-07-29] MEDS: metFORMIN 500 MG TAB PO SCH (17:12)
[2017-07-29 20:04] VITALS: BMI 29.5
[2017-07-29] MEDS: Donepezil HCl 5 MG TAB PO SCH (21:19)
[2017-07-30] MEDS: Acetaminophen 325 MG TAB PO SCH ×4 (04:25→20:59)
[2017-07-30] MEDS: Aspirin 81 mg Enteric Coated Tablet PO SCH (08:43)
[2017-07-30] MEDS: Docusate 100 MG CAP PO SCH ×2 (08:43→20:59)
[2017-07-30] MEDS: Polyethylene Glycol 3350 17 GM Packet PO SCH (08:43)
[2017-07-30] MEDS: Citalopram 10 MG TAB PO SCH (08:43)
[2017-07-30] MEDS: Senokot S 8.6-50 MG TAB PO SCH ×2 (08:44→20:59)
--- NOTE | 2017-07-30 11:10 | PRG ---
DATE OF SERVICE: 07/30/2017 HISTORY OF PRESENT ILLNESS: Ms. Rodríguez is a very pleasant 87-year-old female that fell and had a r esultant right distal femur fracture. She was operated on, stabilized and transferred to [facility], but had a GI bleed there. She got transferred back to [facility], scoped with no activ e bleeding. The patient was eventually transferred to [facility] for physical therapy and oc cupational therapy. SUBJECTIVE: The patient seems to be doing very well. They were supposed to build a ramp at her [facility] so she can get in and out of her house this past weekend. Her scheduled discharge day is on . She is looking forward to that. VITAL SIGNS: Blood pressure 121/59, pulse 67 to 80, respirations 18-20, O2 sat 96-97% on room air, temperature max 97.9. PHYSICAL EXAMINATION: GENERAL: This is a well-developed, well-nourished, very pleasant female in no apparent distress at this time. HEENT: Reveals normocephalic, nontraumatic cranium. The pupils are equally round and reactive. Ex traocular movements are intact. Nose and throat are slightly dry. NECK: Supple, without masses, nodes or bruits. CHEST: Clear to auscultation. No rales, rhonchi or wheezes are heard. CARDIOVASCULAR: Reveals a regular rate and rhythm. The patient does have a 2/6 systolic ejection m urmur still. ABDOMEN: Soft, nontender, without organomegaly, normal bowel sounds are noted. No rebound or guard ing is noted. : Deferred. EXTREMITIES: Reveal right leg is in a long leg splint/brace. It is locked and she seems to be doin g well. She has no significant palpated tenderness or redness. IMPRESSION: 1. Right distal femur fracture status post open reduction internal fixation. The patient is still nonweightbearing. 2. Anemia secondary to prior gastrointestinal bleed. 3. Chronic kidney disease. 4. Diabetes, stable. 5. Gastroesophageal reflux disease, stable. 6. Cognitive deficits with mild dementia, stable. 7. DNR. 8. Constipation, stable. PLAN: 1. Continue to follow the patient's blood pressure closely. 2. Continue to monitor his diabetes with Accu-Cheks a.c. and at bedtime. 3. Deep venous thrombosis prophylaxis. 4. Stress ulcer prophylaxis. 5. Decubitus precautions. 6. Continue present meds. 7. Continue physical therapy and occupational therapy. 8. Patient expected discharge date is on Sunday.
[2017-07-30] MEDS: metFORMIN 500 MG TAB PO SCH (16:46)
[2017-07-30] MEDS: Donepezil HCl 5 MG TAB PO SCH (20:59)
[2017-07-31] MEDS: Acetaminophen 325 MG TAB PO SCH ×4 (05:48→21:18)
[2017-07-31] MEDS: Senokot S 8.6-50 MG TAB PO SCH ×2 (08:49→21:18)
[2017-07-31] MEDS: Docusate 100 MG CAP PO SCH ×2 (08:49→21:18)
[2017-07-31] MEDS: Aspirin 81 mg Enteric Coated Tablet PO SCH (08:49)
[2017-07-31] MEDS: Polyethylene Glycol 3350 17 GM Packet PO SCH (08:49)
[2017-07-31] MEDS: Citalopram 10 MG TAB PO SCH (08:49)
[2017-07-31] MEDS: metFORMIN 500 MG TAB PO SCH (16:49)
--- NOTE | 2017-07-31 17:27 | PRG ---
DATE OF SERVICE: 07/31/2017 HISTORY OF PRESENT ILLNESS: Ms. Rodríguez is a very pleasant 87-year-old black female who fell at [facility]. She had a right distal femur fracture. She was operated on, stabilized and transferred to [facility]. After a couple days, patient ended up having GI bleed, was transferred back to [place] where she had a scope by Dr. Shah. Bleeding points were not found. Patient was transferred to [facility] for PT and OT. SUBJECTIVE: The patient is very happy. She thinks she is going home tomorrow. She has no complain ts today. She is doing much better at therapy. OBJECTIVE: VITAL SIGNS: Blood pressure 121/58, pulse 67-76, respirations 18, O2 sat 96-98%. T-max 97.3. GENERAL: This is a well-developed, well-nourished, black female in no apparent distress at this felicia e. HEENT: Reveals normocephalic, nontraumatic cranium. Pupils are equally round and reactive. Extrao cular movements intact. Nose and throat are clear. NECK: Supple, without masses, nodes or bruits. LUNGS: Clear to auscultation. No rales, rhonchi or wheezes are heard. No cough is noted. HEART: Reveals a regular rate and rhythm. A 2/6 systolic ejection murmur is still heard. ABDOMEN: Soft, nontender, without organomegaly, normal bowel sounds are noted. No rebound or guard ing is noted. GENITOURINARY: Deferred. EXTREMITIES: Reveal right leg still is in a long leg brace. . The patient is doing well. S he has no complaints of pain. IMPRESSION: 1. Right distal femur fracture, status post open reduction and internal fixation. 2. Nonweightbearing. 3. Anemia secondary to prior gastrointestinal bleed. 4. Chronic kidney disease. 5. Diabetes. 6. Gastroesophageal reflux disease. 7. Cognitive deficits with mild dementia, stable. 8. DNR. 9. Constipation, stable. PLAN: 1. Monitor the patient's blood pressure closely. 2. Monitor patient's sugars with Accu-Cheks a.c. and at bedtime. 3. Deep venous thrombosis prophylaxis. 4. Stress ulcer prophylaxis. 5. Decubitus precautions. 6. Continue present meds. 7. Continue physical therapy and occupational therapy. 8. Probable discharge tomorrow.
[2017-07-31] MEDS: Donepezil HCl 5 MG TAB PO SCH (21:18)
[2017-08-01] MEDS: Acetaminophen 325 MG TAB PO SCH ×3 (04:43→15:01)
[2017-08-01] MEDS: Polyethylene Glycol 3350 17 GM Packet PO SCH (08:07)
[2017-08-01] MEDS: Docusate 100 MG CAP PO SCH (08:07)
[2017-08-01] MEDS: Citalopram 10 MG TAB PO SCH (08:08)
[2017-08-01] MEDS: Aspirin 81 mg Enteric Coated Tablet PO SCH (08:08)
[2017-08-01] MEDS: Senokot S 8.6-50 MG TAB PO SCH (08:08)
[2017-08-01 08:15] VITALS: BP 141/64; TEMP 98.9
--- NOTE | 2017-08-02 06:02 | DIS ---
DATE OF ADMISSION: 06/30/2017 DATE OF DISCHARGE: 08/01/2017 HOSPITAL COURSE: Ms. Rodríguez is a very pleasant 87-year-old black female who fell at home. She had a distal right femur fracture. She was taken to the surgical suite and operated on. She eventually was stabilized and transferred to [facility] where after a day or two, she ended up having a GI bleed. She was transferred back to [facility] and had a scope by Dr. Shah. Origin for the bleeding was not found. The patient was eventually transferred to [facility] for physical therapy and occupational therapy. The patient is here and her daughter is going to take her home today. They have a ramp built. [facility] is going to be their home health agency and she has no complaints today. She is doing better and she has done very well in therapy. She has an appointment with orthopedic surgeon I believe on . She should see me in a couple of weeks after that. The patient wishes to transfer to my service as her primary care because she says going to [place] is too far. DISCHARGE MEDICATIONS: Include the followin. Tylenol 650 mg p.r.n. 2. Maalox Plus p.r.n. heartburn. 3. Ecotrin 81 mg daily. 4. Tums p.r.n. 5. Celexa or Citalopram 10 mg q.a.m. 6. Colace 100 mg twice a day p.r.n. constipation. 7. Aricept 10 mg at bedtime. 8. Imodium p.r.n. 9. Milk of Magnesia p.r.n. 10. Glucophage 500 mg once a day with meals. 11. Protonix 40 mg twice a day. 12. MiraLax 17 grams daily. 13. Senokot S daily. PHYSICAL EXAMINATION: VITAL SIGNS: Revealed blood pressure today 141/64, pulse 67-75, respirations 18 , O2 sat 97% on room air, T-max 98.9. GENERAL: This is a well-developed, well-nourished, very pleasant black female in no apparent distress at this time. HEENT: Reveals normocephalic, nontraumatic cranium. Pupils are equally round and reactive. Extraocular movements are intact. Nose and throat are slightly dry. NECK: Supple, without masses, nodes or bruits. CHEST: Clear to auscultation, no rales, rhonchi or wheezes are heard. No cough is noted. HEART: Reveals a regular rate and rhythm without murmurs, gallops or rubs. Patient does have a 2/6 systolic ejection murmur. ABDOMEN: Slightly obese, soft, nontender, without organomegaly. Normal bowel sounds are noted. No rebound or guarding is noted. GENITOURINARY: Exam is deferred. EXTREMITIES: Reveal right leg still in a long leg brace. The patient is to follow up with her orthopedic surgeon, although she does not remember who it is on 08/13, the daughter does know. She has no complaints of pain. IMPRESSION: 1. Right distal femur fracture status post open reduction internal fixation. 2. The patient is still nonweightbearing. 3. Anemia secondary to gastrointestinal bleed. No source of gastrointestinal bleed found on scope. 4. Chronic kidney disease. 5. Diabetes. 6. Gastroesophageal reflux disease. 7. Cognitive deficits with mild dementia which is stable. 8. The patient is DO NOT RESUSCITATE. 9. Constipation, stable. PLAN: 1. The patient is to be discharged today. 2. The patient will continue on her previous medications as noted above. 3. The patient will see her orthopedic surgeon at the end of July. 4. The patient will see me approximately 2 weeks later. 5. Stress ulcer prophylaxis. 6. Decubitus precaution. 7. Continue present medications. 8. The patient is scheduled to have home health with [facility] come by tomorrow. 9. Discharge to the care of her daughter. Spenrt more than 30 minutes discharging this patient and addressing the daughters concerns. CUATE
== END 2017-08-01 15:45 | disposition home health service (06) | DRG 561 ==
LOC: NAV ACUTE 20:19
PROVIDERS: ADMIT Family Medicine; ATTEND Family Medicine
DX: S72.91XD Unspecified fracture of right femur, subsequent encounter for closed fracture with routine healing (principal); E11.22 Type 2 diabetes mellitus with diabetic chronic kidney disease; F03.90 Unspecified dementia, unspecified severity, without behavioral disturbance, psychotic disturbance, mood disturbance, and anxiety; D50.0 Iron deficiency anemia secondary to blood loss (chronic); W19.XXXD Unspecified fall, subsequent encounter; Z79.84 Long term (current) use of oral hypoglycemic drugs; Z66 Do not resuscitate; K59.00 Constipation, unspecified; K21.9 Gastro-esophageal reflux disease without esophagitis; N18.2 Chronic kidney disease, stage 2 (mild); K27.9 Peptic ulcer, site unspecified, unspecified as acute or chronic, without hemorrhage or perforation; Z87.440 Personal history of urinary (tract) infections
CPT/HCPCS: 36415; 36416; 80048; 80053; 81001; 85025; 90471; 90682; A4353; G0008; G8978-GP-CK; G8979-GP-CJ; Q2036

== ENCOUNTER 2018-01-30 12:13 | Outpatient (CLI) | payer MEDICARE ==
[2018-01-30 13:19] LABS: Bilirubin Negative (Negative); Blood, Urine Trace (Negative); Clarity Cloudy (Clear); Glucose, Urine (Dipstick) Negative (Negative); Leukocyte Large (Negative); Nitrite Positive (Negative); Protein, Urine (Dipstick) 30 mg/dL (Neg-Trace); Specific Gravity, Urine 1.015 (1.005-1.030); Urobilinogen 0.2 mg/dL (0.2-1.0); pH, Urine 5.5 (5.0-9.0)
[2018-01-30 13:22] LABS: RBC/HPF 0-3 HPF (0-3)
[2018-01-30 13:23] LABS: Bacteria/HPF 3+ HPF (None Seen); Hyaline Casts/LPF 0-3 HYALINE CAST LPF (0-3 Hyaline); Other Microscopic Description NO; WBC/HPF 21-50 HPF (0-3)
== END 2018-01-30 12:14 | disposition home or self-care (01) ==
LOC: NAVSJIPCSP 12:13
PROVIDERS: ATTEND Family Medicine
DX: R30.0 Dysuria (principal)
CPT/HCPCS: 81003; 81015; 87077; 87086; 87186

== ENCOUNTER 2018-02-14 15:34 | Outpatient (CLI) | payer MEDICARE ==
[2018-02-14 16:21] LABS: Bilirubin Negative (Negative); Blood, Urine Trace (Negative); Clarity Clear (Clear); Glucose, Urine (Dipstick) Negative (Negative); Leukocyte Negative (Negative); Nitrite Negative (Negative); Protein, Urine (Dipstick) Negative (Neg-Trace); pH, Urine 6.5 (5.0-9.0)
[2018-02-14 16:30] LABS: RBC/HPF 0-3 HPF (0-3); Squamous Epithelial 0-3 HPF (0-3); WBC/HPF 0-3 HPF (0-3)
== END 2018-02-14 15:35 | disposition home or self-care (01) ==
LOC: NAV LAB 15:34
PROVIDERS: ATTEND Family Medicine
DX: N39.0 Urinary tract infection, site not specified (principal)
CPT/HCPCS: 81003; 81015; 87086

== ENCOUNTER 2018-10-14 13:30 | Emergency (ER) | payer MEDICARE ==
--- NOTE | 2018-10-14 14:44 | RAD ---
AP PELVIS: Date: 10/14/18 HISTORY: Fall, hip pain. FINDINGS/IMPRESSION: Comparison made with 04/08/18. A right femoral head prosthesis remains in place. Bones are osteopenic. No acute fracture or dislocat ion is identified. There are degenerative changes in the lower lumbar spine. POS: [facility]
--- NOTE | 2018-10-14 14:45 | RAD ---
LEFT HIP 2 VIEWS: Date: 10/14/18 HISTORY: Left hip pain. FINDINGS/IMPRESSION: Degenerative changes are present. No acute fracture or dislocation is identified. POS: CLOTILDE
--- NOTE | 2018-10-14 14:54 | RAD ---
LUMBAR SPINE 3 VIEWS: Date: 10/14/18 HISTORY: Back pain. FINDINGS/IMPRESSION: Multilevel degenerative changes are present. No acute fracture or subluxation is identified. POS: CLOTILDE
[2018-10-14] MEDS ORDERED: Ondansetron ODT 4 MG TAB ONE (14:59)
--- NOTE | 2018-10-14 15:04 | RAD ---
RIGHT HIP 1 VIEW: Date: 10/14/18 HISTORY: Right hip pain. FINDINGS/IMPRESSION: A right femoral head prosthesis is present in good position and alignment. POS: CLOTILDE
[2018-10-14] MEDS ORDERED: Promethazine HCl 25 MG/ML VIAL ONE (15:13)
[2018-10-14] MEDS ORDERED: Promethazine 25 MG TAB ONE (15:14)
== END 2018-10-14 15:34 | disposition home or self-care (01) ==
LOC: NAV ERS 13:30
DX: S30.0XXA Contusion of lower back and pelvis, initial encounter (principal); M25.551 Pain in right hip; Z79.82 Long term (current) use of aspirin; Z79.899 Other long term (current) drug therapy; W06.XXXA Fall from bed, initial encounter
CPT/HCPCS: 72100; 72170; J2550; Q0162

== ENCOUNTER 2018-10-18 11:00 | Inpatient (IN) | payer MEDICARE ==
[2018-10-18] MEDS ORDERED: Bisacodyl 5 MG TAB PO PRN (12:21)
[2018-10-18] MEDS ORDERED: Ondansetron ODT 4 MG TAB PO PRN (12:21)
[2018-10-18] MEDS ORDERED: Ibuprofen 200 MG TAB PO PRN (12:23)
[2018-10-18] MEDS ORDERED: Non-Formulary Item 1 EACH (Promethazine Hcl [Promethazine Hcl] 12.5 MG) PO PRN (12:23)
[2018-10-18] MEDS ORDERED: Promethazine 25 MG TAB PO PRN (12:33)
[2018-10-18 13:09] LABS: #Basophils 0.1 thou/uL (0.0-0.2); #Lymphocytes 1.6 thou/uL (1.20-3.40); #Monocytes 0.9 thou/uL (0.11-0.59); #Neutrophils 7.9 thou/uL (1.40-6.50); %Eosinophils 0.5 % (0.0-10.0); %Lymphocytes 14.8 % (21.0-51.0); %Monocytes 8.5 % (0.0-10.0); %Neutrophils 75.3 % (42.0-75.0); Hemoglobin 13.9 g/dL (12.0-16.0); Mean Corpuscular Volume 93.9 fL (78.0-98.0); Mean Platelet Volume 6.9 fL (7.4-10.4); Platelet Count 202 thou/uL (130-400); Red Blood Cell (RBC) Count 4.49 mill/uL (4.20-5.40); White Blood Cell (WBC) Count 10.5 thou/uL (4.8-10.8)
[2018-10-18 13:15] LABS: ALT (SGPT) 16 U/L (8-55); AST (SGOT) 16 U/L (5-34); Albumin 3.7 g/dL (3.4-4.8); Alkaline Phosphatase 60 U/L (40-150); Anion Gap 15 mmol/L (10-20); BUN (Urea Nitrogen) 17 mg/dL (9.8-20.1); Bilirubin, Total 1.3 mg/dL (0.2-1.2); Calc. Creatinine Clearance 0 mL/min (70-130); Calcium 9.2 mg/dL (7.8-10.44); Carbon Dioxide 24 mmol/L (23-31); Chloride 96 mmol/L (98-107); Estimated GFR-MDRD Greater than 90; Glucose 217 mg/dL (83-110); Potassium 3.3 mmol/L (3.5-5.1); Protein, Total 6.7 g/dL (6.0-8.3); Sodium 132 mmol/L (136-145)
--- NOTE | 2018-10-18 13:38 | CT ---
CT PELVIS WITHOUT CONTRAST: Comparison: None. History: Fall on 10-14-18 with negative x-rays. Continued pelvic and hip pain. Comparison: Hip and pelvic radiographs, 10-14-18. Technique: Multiple contiguous axial images were obtained in a CT of the pelvis without contrast. Sag ittal and coronal reformats were performed. FINDINGS: The patient has a right hip prosthesis. No fracture or dislocation are seen. No perihardware lucency is seen. The pubic symphysis is unremarkable. The sacroiliac joints are symmetric and show mild degen erative change. Atherosclerotic calcifications are seen in the aorta. Diverticula are seen in the colon. The other vi sualized intrapelvic structures are unremarkable. The patient is status post hysterectomy. IMPRESSION: No evidence of acute osseous abnormality of the bones of the pelvis or hips. POS: SIERRA
--- NOTE | 2018-10-18 13:40 | CT ---
CT LUMBAR SPINE WITHOUT CONTRAST: Comparison: None. History: Fall on 03-14-18 with continued low back pain. Technique: Multiple contiguous axial images were obtained in a CT of the lumbar spine without contras t. Sagittal and coronal reformats were performed. FINDINGS: There are moderate degenerative changes throughout the lumbar spine. The vertebral bodies and interve rtebral discs demonstrate normal height and alignment with fracture or subluxation. 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 Severe posterior facet arthrosis is seen in the lower lumbosac ral spine. Atherosclerotic calcifications are seen in the aorta. The other prevertebral and paraspinal soft tiss ues are unremarkable. IMPRESSION: Degenerative changes of the lumbosacral spine without acute osseous abnormality. POS: CLOTILDE
[2018-10-18] MEDS: metFORMIN 500 MG TAB PO SCH (17:11)
[2018-10-18] MEDS: Citalopram 10 MG TAB PO SCH (20:24)
[2018-10-18] MEDS: Famotidine 20 MG TAB PO SCH (20:24)
[2018-10-18] MEDS: Docusate 100 MG CAP PO SCH (20:24)
[2018-10-18] MEDS: Donepezil HCl 5 MG TAB PO SCH (20:24)
[2018-10-18] MEDS ORDERED: ZANTAC 150 MG PO SCH (21:00)
[2018-10-19] MEDS: traMADol HCl 50 MG TAB PO PRN ×2 (08:00→14:06)
[2018-10-19] MEDS: Famotidine 20 MG TAB PO SCH ×2 (08:55→20:57)
[2018-10-19] MEDS: Docusate 100 MG CAP PO SCH ×2 (08:55→20:57)
[2018-10-19] MEDS: Polyethylene Glycol 3350 17 GM Packet PO SCH (08:55)
[2018-10-19] MEDS: Aspirin 81 mg Enteric Coated Tablet PO SCH (08:55)
[2018-10-19] MEDS ORDERED: Citalopram 10 MG TAB PO SCH (09:00)
[2018-10-19] MEDS: metFORMIN 500 MG TAB PO SCH (17:11)
[2018-10-19] MEDS ORDERED: Bisacodyl 10 MG SUPP PR PRN (18:07)
[2018-10-19] MEDS: Donepezil HCl 5 MG TAB PO SCH (20:57)
[2018-10-19] MEDS: Citalopram 10 MG TAB PO SCH (20:57)
[2018-10-19] MEDS: Bisacodyl 5 MG TAB PO PRN (20:57)
[2018-10-20] MEDS: traMADol HCl 50 MG TAB PO PRN ×2 (08:01→15:29)
[2018-10-20] MEDS: Aspirin 81 mg Enteric Coated Tablet PO SCH (09:06)
[2018-10-20] MEDS: Polyethylene Glycol 3350 17 GM Packet PO SCH (09:06)
[2018-10-20] MEDS: Famotidine 20 MG TAB PO SCH ×2 (09:06→20:51)
[2018-10-20] MEDS: Docusate 100 MG CAP PO SCH ×2 (09:06→20:51)
[2018-10-20 14:03] VITALS: BMI 23.9
[2018-10-20] MEDS: metFORMIN 500 MG TAB PO SCH (16:26)
[2018-10-20] MEDS: Donepezil HCl 5 MG TAB PO SCH (20:52)
[2018-10-20] MEDS: Citalopram 10 MG TAB PO SCH (20:52)
[2018-10-21] MEDS: Docusate 100 MG CAP PO SCH ×2 (08:24→20:44)
[2018-10-21] MEDS: Aspirin 81 mg Enteric Coated Tablet PO SCH (08:24)
[2018-10-21] MEDS: Famotidine 20 MG TAB PO SCH ×2 (08:24→20:44)
[2018-10-21] MEDS: Polyethylene Glycol 3350 17 GM Packet PO SCH (08:24)
[2018-10-21] MEDS: traMADol HCl 50 MG TAB PO PRN (08:47)
[2018-10-21] MEDS: metFORMIN 500 MG TAB PO SCH (17:31)
--- NOTE | 2018-10-21 20:21 | PRG ---
DATE OF SERVICE: 10/19/2018 SUBJECTIVE: The patient had complete pain relief and is resting well, on tramadol 50 mg every 6 hours. She is in fact eating somewhat better. Having no nausea, vomiting, or shortness of breath. She is still very weak, but is more alert. OBJECTIVE: VITAL SIGNS: Blood pressure is 142/66, temperature 96, pulse 73, respirations 20, O2 sats 95% on room air. LUNGS: Clear. CARDIAC: Regular rhythm. ABDOMEN: Soft and nontender. SKIN/EXTREMITIES: Tenderness to palpation in the pelvis and lumbar spine. LABORATORY DATA: Accu-Cheks ranged from 105 to 164. Sodium 132, potassium 3.3, chloride 106, bicarb 24, BUN 17, creatinine 0.67, glucose 217. AST 16, ALT 16, albumin 3.7. ASSESSMENT: 1. Resolving contusion to the lower back and pelvis. 2. Persistent weakness. 3. Persistent mild confusion and dementia. 4. Severe deconditioning. PLAN: Continue pain relief. Discharge to family Continue to monitor oral intake. Job ID: [id number]
--- NOTE | 2018-10-21 20:21 | PRG ---
DATE OF SERVICE: 10/20/2018 SUBJECTIVE: The patient feels well, lying in bed, resting, noticed still too weak to maintain ADLs. Family is asking me if she can be admitted for therapy. OBJECTIVE: VITAL SIGNS: Shows temperature 98.3, pulse 75, respirations 18, O2 sats 94% on room air, and blood pressure 146/63. LUNGS: Clear. CARDIAC: Regular rhythm with 2/6 systolic ejection murmur. ABDOMEN: Soft and nontender. EXTREMITIES: Show tenderness to palpation on the lower back and pelvis. There is decreased skin turgor. ASSESSMENT: 1. Persistent weakness . 2. Persistent pain in the lower back and pelvis oral tramadol. PLAN: Discuss with Dr. Hughes tomorrow. He will take over care of the patient. Job ID: [id number]
[2018-10-21] MEDS: Citalopram 10 MG TAB PO SCH (20:44)
[2018-10-21] MEDS: Donepezil HCl 5 MG TAB PO SCH (20:44)
[2018-10-22] MEDS: Famotidine 20 MG TAB PO SCH (08:28)
[2018-10-22] MEDS: Aspirin 81 mg Enteric Coated Tablet PO SCH (08:28)
[2018-10-22] MEDS: Bisacodyl 5 MG TAB PO PRN (08:28)
[2018-10-22] MEDS: Docusate 100 MG CAP PO SCH (08:28)
[2018-10-22] MEDS: traMADol HCl 50 MG TAB PO PRN (08:29)
[2018-10-22] MEDS: Polyethylene Glycol 3350 17 GM Packet PO SCH (08:32)
[2018-10-22 11:59] VITALS: BP 140/80; TEMP 98.2
--- NOTE | 2018-10-23 07:55 | HP ---
HISTORY OF PRESENT ILLNESS: The patient is an 88-year-old white female who has fallen several times in the last several weeks and has become increasingly weak. She is not eating well. She was seen in the emergency room, found to have negative pelvic x-ray and was discharged home, but again was brought to the [facility] and seen by Dr. Vargas because of severe pain and inability to maintain ADLs. She was therefore admitted to the hospital on 10/18/2018 for pain relief and for further evaluation of her back and pelvis pain. PAST MEDICAL HISTORY: Remarkable for diabetes type 2, peptic ulcer disease, recurrent urinary tract infection and gastroesophageal reflux. SURGICAL HISTORY: Positive for femur fracture in 2017, right hip replacement, appendectomy, hysterectomy. ALLERGIES: THE PATIENT HAS NO KNOWN ALLERGIES. MEDICATIONS: Include: Aricept 10 mg at night. Pepcid 20 mg twice a day. Celexa 10 nightly. REVIEW OF SYSTEMS: VITAL SIGNS: Blood pressure 150/69, temperature 97.9, pulse 98, respirations 20, O2 sats 98% on room air. HEENT: Pupils are equal, round, react to light and accommodation. Sclerae anicteric. Conjunctivae pale. Oral mucous membranes dehydrated. NECK: Supple. No nodules or masses. CHEST: Denies cough, shortness of breath, or pneumonia. CARDIOVASCULAR: Denies chest pain, orthopnea, paroxysmal nocturnal dyspnea. GASTROINTESTINAL: Denies nausea, vomiting, diarrhea, constipation, abdominal pain. : Denies dysuria, hematuria, nocturia. MUSCULOSKELETAL: She has severe pain in the back, notes some inability to move essentially without significant pain. PHYSICAL EXAMINATION: VITAL SIGNS: Pulse 98, respirations 20, blood pressure 130/69, O2 sats 98%. HEENT: Pupils equal, round, reactive to light and accommodation. Sclerae anicteric. Conjunctivae pale. Mucous membranes are dehydrated. NECK: Supple. No nodes or masses. JVP is not elevated. LUNGS: Clear. CARDIAC: Regular rhythm. No gallops or murmurs. ABDOMEN: Soft and nontender. EXTREMITIES: Tenderness to palpation of lower back and pelvis. DIAGNOSTIC DATA CT scan repeated shows only arthritis with no fractures of the pelvis or lumbar spine. ASSESSMENT: 1. Contusion of lumbar spine with arthritis. No evidence of fracture. 2. History of peptic ulcer disease. 3. Chronic kidney disease stage 2. 4. Diabetes type 2, stable. 5. Carotid . 6. Do not resuscitate. 7. Recurrent urinary tract infection. PLAN: 1. Admit to the hospital. 2. Continue tramadol for pain. 3. Consult PT and OT. 4. Continue stress ulcer and DVT prophylaxis. Job ID: [id number]
== END 2018-10-22 13:16 | disposition swing bed (61) | DRG 605 ==
LOC: NAV ACUTE 11:00
PROVIDERS: ADMIT Internal Medicine; ATTEND Internal Medicine
DX: S30.0XXA Contusion of lower back and pelvis, initial encounter (principal); R53.1 Weakness; M47.816 Spondylosis without myelopathy or radiculopathy, lumbar region; Z66 Do not resuscitate; K21.9 Gastro-esophageal reflux disease without esophagitis; F03.90 Unspecified dementia, unspecified severity, without behavioral disturbance, psychotic disturbance, mood disturbance, and anxiety; E11.22 Type 2 diabetes mellitus with diabetic chronic kidney disease; N18.2 Chronic kidney disease, stage 2 (mild); K59.09 Other constipation; W19.XXXA Unspecified fall, initial encounter; Z90.710 Acquired absence of both cervix and uterus; Z90.49 Acquired absence of other specified parts of digestive tract; Z96.641 Presence of right artificial hip joint
CPT/HCPCS: 36415; 36416; 72131; 72192; 80053; 85025

== ENCOUNTER 2018-10-22 13:26 | Inpatient (IN) | payer MEDICARE ==
--- NOTE | 2018-10-21 11:30 | HP ---
Date of admission to swing bed is 10/21/2018. HISTORY OF PRESENT ILLNESS: This patient is a very pleasant 88-year-old white female, who was admitted to acute care by Dr. Gerardo on 10/18/2018. She was seen by myself today and felt that she is still considered extremely weak and having quite a bit of pain. She is still not eating as well. It is felt that she would benefit significantly from continued inpatient physical therapy and occupational therapy. She is admitted to swing bed for that course. SUBJECTIVE: The patient states she is doing very well today. Her pain is much better, but still quite a bit there. She states it happened when she fell on [employer], landing on her buttocks and then her back. She continues to have quite a bit of pain and some weakness and would benefit significantly from physical therapy and occupational therapy. PAST MEDICAL HISTORY: 1. Diabetes type 2. 2. GERD. 3. Peptic ulcer in the distant past. 4. Repeated urinary tract infections. 5. Constipation. 6. Pain management. PAST SURGICAL HISTORY: 1. Recent femur fracture approximately a year ago. 2. Past history of distant right hip replacement. 3. Appendectomy. 4. Hysterectomy. ALLERGIES: THE PATIENT HAS NO KNOWN ALLERGIES. MEDICATIONS: Medications revealed the patient is presently on the followin. Aspirin 81 mg daily. 2. Dulcolax 10 mg p.r.n. q.24 hours. 3. Celexa 10 mg at bedtime. 4. Colace 100 mg b.i.d. 5. Aricept 10 mg at bedtime. 6. Pepcid 20 mg b.i.d. 7. Ibuprofen 200 mg q.6 hours p.r.n. 8. Metformin 500 mg q.p.m. with supper. 9. Zofran 4 mg q.6 hours p.r.n. nausea and vomiting. 10. MiraLAX 17 g daily. 11. Phenergan 12.5 mg q.12 hours p.r.n. 12. Tramadol 50 mg q.6 hours p.r.n. FAMILY HISTORY: Unremarkable. SOCIAL HISTORY: The patient denies alcohol, tobacco, but she continues to dip snuff. REVIEW OF SYSTEMS: The patient has some cognitive difficulties, unable to answer questions. PHYSICAL EXAMINATION: VITAL SIGNS: Today reveal blood pressure 128/72, pulse 86, respirations 20, O2 saturation 94% on room air, T-max 98.5. GENERAL: This is a well-developed, well-nourished, very pleasant white female, who complains of low back pain. On 10/18 admission, she did have a pelvic CT scan and a lumbar spine CT scan, which both revealed arthritis, but no acute fractures or dislocations. HEENT: Reveals normocephalic, nontraumatic cranium. Pupils are equal, round, reactive. Extraocular movements are intact. Nose and throat are slightly dry. NECK: Supple without masses, nodes, or bruits. CHEST: Clear to auscultation. No rales, no rhonchi, no wheezes are heard. No cough is noted. HEART: Reveals a regular rate and rhythm. A 2/6 systolic ejection murmur is noted. ABDOMEN: Soft, nontender without organomegaly. Normal bowel sounds are noted. No rebound or guarding is noted. : Deferred. EXTREMITIES: Reveal no clubbing, cyanosis, or edema. SKIN: Warm and dry. ASSESSMENT: 1. Recent fall on 10/14/18. The patient was seen in the emergency room. The patient returned to the emergency room 3-4 days later and was admitted for pain management. 2. Prior gastrointestinal bleed secondary to peptic ulcer disease. 3. Prior anemia secondary to gastrointestinal bleed. 4. Chronic kidney disease, stage 2. 5. Diabetes type 2. 6. Prior femur fracture a year ago. 7. Gastroesophageal reflux disease. 8. Cognitive deficits. 9. DNR. 10. History of recurrent urinary tract infections. 11. Chronic constipation. PLAN: 1. The patient was admitted to acute care by Dr. Gerardo on 10/18. (She was seen by Physical Therapy and Occupational Therapy and was evaluated and they agree that the patient would benefit from therapy.) 2. Continue stress ulcer prophylaxis. 3. Continue decubitus precautions. 4. Continue DVT prophylaxis. 5. Possible residential placement after her therapy. 6. The patient is admitted to swing bed for Pain management and PT and OT. Job ID: [id number] [facility]
[2018-10-22] MEDS ORDERED: Bisacodyl 5 MG TAB PO PRN (14:04)
[2018-10-22] MEDS ORDERED: Bisacodyl 10 MG SUPP PR PRN (14:04)
[2018-10-22] MEDS ORDERED: Ondansetron ODT 4 MG TAB PO PRN (14:05)
[2018-10-22] MEDS ORDERED: Promethazine 25 MG TAB PO PRN (14:05)
[2018-10-22] MEDS: metFORMIN 500 MG TAB PO SCH (17:49)
[2018-10-22 18:48] VITALS: BMI 23.9
[2018-10-22] MEDS: Docusate 100 MG CAP PO SCH (21:24)
[2018-10-22] MEDS: traMADol HCl 50 MG TAB PO PRN (21:24)
[2018-10-22] MEDS: Famotidine 20 MG TAB PO SCH (21:25)
[2018-10-22] MEDS: Donepezil HCl 10 MG TAB PO SCH (21:25)
[2018-10-22] MEDS: Citalopram 10 MG TAB PO SCH (21:25)
--- NOTE | 2018-10-23 08:08 | PRG ---
DATE OF SERVICE: 10/22/2018 Date of admission to swing bed is 10/21/2018. SUBJECTIVE: This patient is an 88-year-old white female who was admitted to acute care by Dr. Gerardo on 10/18. She was seen by myself yesterday and transferred to swing bed because of her extreme weakness. She was seen by Physical Therapy and Occupational Therapy as presently had been very active at home. She did very poorly in therapy, in that she has significant pain, is very acutely aware and somewhat scared of standing up and moving because of pain. They were able to get her to stand up with two patients assist and I expect that she will gradually get better day by day. The patient states she had a good day and she did ask about getting therapy. I did tell her that the only way she can go home is if she gets stronger and stands up and is able to walk a little bit. Otherwise, she will have to go to a [facility]. OBJECTIVE: VITAL SIGNS: Today reveal blood pressure 133/60, pulse 68 to 71, respirations 18, O2 saturation 95% to 98% on room air, T-max 98.4. GENERAL: This is a well-developed, well-nourished, thin white female in no apparent distress at this time. HEENT: Reveals normocephalic, nontraumatic cranium. Pupils equally round, and reactive. Extraocular movements intact. Nose and throat are still dry today. NECK: Supple without masses, nodes or bruits. CHEST: Clear to auscultation. No rales, no rhonchi. No wheezes or cough is heard today. HEART: Reveals a regular rate and rhythm. The patient does have a 2/6 systolic ejection murmur. ABDOMEN: Soft, nontender, without organomegaly. Normal bowel sounds are heard in all four quadrants. No rebound or guarding is noted. : Deferred. EXTREMITIES: Reveal no clubbing, cyanosis, or edema. Just generalized weakness. SKIN: Warm and dry. ASSESSMENT: 1. Recent fall on 10/14. The patient was admitted to the hospital on 10/18 because of intractable pain. Her pain has been under control now. She is in swing bed for physical therapy and occupational therapy. 2. Prior gastrointestinal bleed secondary to peptic ulcer disease in the past. 3. Prior anemia secondary to gastrointestinal bleed. 4. Chronic kidney disease, stage 2. 5. Diabetes type 2. 6. Prior femur fracture year ago. 7. Gastroesophageal reflux disease. 8. Cognitive deficits at times. 9. DNR. 10. History of recurrent urinary tract infections. 11. Chronic constipation. 12. Generalized weakness. PLAN: 1. The patient was admitted yesterday to swing bed. She did see Physical therapy and Occupational therapy today. 2. Continue with stress ulcer prophylaxis. 3. Continue decubitus precautions. 4. Continue DVT prophylaxis. 5. Continue to encourage the patient to eat. 6. Continue to get the patient out of bed as much as possible. Job ID: [id number]
[2018-10-23] MEDS: Docusate 100 MG CAP PO SCH ×2 (08:32→20:38)
[2018-10-23] MEDS: Famotidine 20 MG TAB PO SCH ×2 (08:32→20:39)
[2018-10-23] MEDS: Polyethylene Glycol 3350 17 GM Packet PO SCH (08:32)
[2018-10-23] MEDS: traMADol HCl 50 MG TAB PO PRN (08:34)
[2018-10-23] MEDS: Ibuprofen 200 MG TAB PO PRN ×2 (12:41→20:38)
--- NOTE | 2018-10-23 16:15 | PRG ---
DATE OF SERVICE: 10/23/2018 This patient is an 88-year-old white female, admitted with acute care by Dr. Gerardo on 10/18. She was admitted to Swing Bed on 10/21, because of extreme weakness and pain management. The tramadol seems to make her little sleepy, but the Motrin does not control her pain. Her daughter would rather she not get the tramadol, so we will try a Lidoderm patch for her pain management. She did take five steps this morning, but refused therapy this afternoon. SUBJECTIVE: I had a long talk with the patient this afternoon about, if she wants to go home, she needs to participate fully in therapy. If she does not want to go home, then we will look for a nursing care placement for her. She states she would rather not go to a residential, she will find some rich [place] to . She has no other complaints today. OBJECTIVE: VITAL SIGNS: Today, reveal blood pressure 133/60, pulse 71, respirations 18, O2 saturation 95% to 98% on room air, T-max 98.4. GENERAL: This is a well-developed, well-nourished, slightly obese black female, in no apparent distress at this time. HEENT: Normocephalic and nontraumatic cranium. Pupils are equal, round, and reactive. Nose and throat are still somewhat dry. NECK: Supple without masses, nodes, or bruits. CHEST: Clear to auscultation and distant. Breath sounds are shallow. No rales, no rhonchi, no wheezes and no cough is heard. HEART: Reveals regular rate and rhythm. The patient continues to have a 2/6 systolic ejection murmur. ABDOMEN: Soft, nontender without organomegaly. Normal bowel sounds are heard in all four quadrants. The patient has no rebound or guarding. : Deferred. EXTREMITIES: Reveal no clubbing, cyanosis, or edema. The patient does have generalized weakness and complains of pain when she stands and walks. SKIN: Warm and dry. ASSESSMENT: 1. Recent fall on [place]. The patient was admitted on 10/18 because of intractable pain. The pain is fairly well under control with the tramadol, but the patient's daughter does not want to have tramadol because it makes her sleepy. We will try a Lidoderm patch. 2. Prior gastrointestinal bleed secondary to peptic ulcer in the distant past. 3. Prior anemia secondary to gastrointestinal bleed. 4. Chronic kidney disease, stage 2. 5. Diabetes, type 2. 6. Prior femur fracture greater than a year ago. 7. Gastroesophageal reflux disease. 8. Cognitive deficits at time. 9. Do not resuscitate. 10. History of recurrent urinary tract infections. 11. Chronic constipation. 12. Generalized weakness. PLAN: 1. The patient is encouraged to participate more fully in physical therapy, occupational therapy, or will have to be transferred to a nursing care facility. 2. Continue stress ulcer prophylaxis. 3. Continue DVT prophylaxis. 4. Continue decubitus precautions. 5. Encourage the patient to eat well. 6. Encourage the patient to get out of bed and sit in chair as much as possible. Job ID: [id number]
[2018-10-23] MEDS: metFORMIN 500 MG TAB PO SCH (17:27)
[2018-10-23] MEDS: Citalopram 10 MG TAB PO SCH (20:39)
[2018-10-23] MEDS: Donepezil HCl 10 MG TAB PO SCH (20:39)
[2018-10-24 05:32] LABS: #Basophils 0.1 thou/uL (0.0-0.2); #Eosinphils 0.2 thou/uL (0.0-0.7); #Lymphocytes 2.9 thou/uL (1.20-3.40); #Monocytes 0.6 thou/uL (0.11-0.59); %Basophils 1.4 % (0.0-1.0); %Eosinophils 1.7 % (0.0-10.0); %Lymphocytes 33.1 % (21.0-51.0); %Monocytes 7.1 % (0.0-10.0); %Neutrophils 56.7 % (42.0-75.0); Hemoglobin 13.2 g/dL (12.0-16.0); Mean Corpuscular HGB CONC 32.3 g/dL (32.0-36.0); Mean Corpuscular Hemoglobin 31.1 pg (27.0-31.0); Mean Corpuscular Volume 96.2 fL (78.0-98.0); Mean Platelet Volume 6.1 fL (7.4-10.4); Platelet Count 341 thou/uL (130-400); RBC Distribution Width 11.4 % (11.5-14.5); Red Blood Cell (RBC) Count 4.23 mill/uL (4.20-5.40); White Blood Cell (WBC) Count 8.8 thou/uL (4.8-10.8)
[2018-10-24 05:44] LABS: ALT (SGPT) 10 U/L (8-55); AST (SGOT) 11 U/L (5-34); Albumin 3.5 g/dL (3.4-4.8); Alkaline Phosphatase 115 U/L (40-150); Anion Gap 11 mmol/L (10-20); BUN (Urea Nitrogen) 12 mg/dL (9.8-20.1); Bilirubin, Total 0.3 mg/dL (0.2-1.2); Calc. Creatinine Clearance 67 mL/min (70-130); Calcium 9.3 mg/dL (7.8-10.44); Carbon Dioxide 28 mmol/L (23-31); Chloride 103 mmol/L (98-107); Estimated GFR-MDRD Greater than 90; Globulin 2.7 g/dL (2.4-3.5); Glucose 114 mg/dL (83-110); Potassium 4.4 mmol/L (3.5-5.1); Protein, Total 6.2 g/dL (6.0-8.3); Sodium 138 mmol/L (136-145)
[2018-10-24] MEDS ORDERED: Lidocaine 5% Patch TD PRN (09:00)
[2018-10-24] MEDS: Famotidine 20 MG TAB PO SCH ×2 (09:38→21:24)
[2018-10-24] MEDS: Polyethylene Glycol 3350 17 GM Packet PO SCH (09:39)
[2018-10-24] MEDS: Docusate 100 MG CAP PO SCH ×2 (09:39→21:24)
[2018-10-24] MEDS: metFORMIN 500 MG TAB PO SCH (17:36)
[2018-10-24] MEDS: Lidocaine Patch Removal TOP SCH (18:44)
--- NOTE | 2018-10-24 19:58 | PRG ---
DATE OF SERVICE: 10/24/2018 This is an 88-year-old white female, admitted to acute care by Dr. Gerardo on 10-18-18. She had acute pain and generalized weakness. She was evaluated by Therapy, and they thought that could most likely get her somewhat better. She was not walking when she came to the hospital. The patient was admitted to swing bed on 10/21/2018, for physical therapy and occupational therapy. SUBJECTIVE: The patient walked 5 steps yesterday, which was a significant improvement. The patient's daughter does not want the patient to have tramadol because it makes her sleepy. We did start her on Lidoderm patch today, but it was not placed until 9:00. The physical therapist came in at 8:00. She had too much pain to participate in therapy and so we will reassess this afternoon after she had the pain patch on or Lidoderm patch on for several hours. The patient otherwise states she has no complaints and seems to be eating fairly well. OBJECTIVE: VITAL SIGNS: Today, reveal blood pressure is 136/63, pulse 73 to 78 , respirations 18 to 20, O2 saturation is 96% to 100% on room air, and T-max 98.7. GENERAL: This is a well-developed, well-nourished black female, in no apparent distress at this time, lying in bed. HEENT: Reveals normocephalic, nontraumatic cranium. Pupils are equal, round, and reactive. Extraocular movements are intact. Nose and throat are moist today. NECK: Supple without masses, nodes, or bruits. CHEST: Clear to auscultation. Breath sounds are noted to be distant. No rales , no rhonchi, and no wheezes are noted. No cough was noted. HEART: Reveals a regular rate and rhythm. The patient has a 2/6 systolic ejection murmur. ABDOMEN: Soft, nontender without organomegaly. Normal bowel sounds are heard in all 4 quadrants. The patient has no rebound or guarding. : Deferred. EXTREMITIES: Reveal no clubbing, cyanosis, or edema. The patient does have generalized weakness and lot of pain, so she was not able to participate in therapy this morning. Hopefully, she can participate this afternoon. SKIN: Warm and dry. LABORATORY DATA: Laboratories today reveal white count 8000 with hemoglobin 13.2, hematocrit 40.7, and platelet count 341,000. Sodium is 138, potassium 4.4, chloride 103, carbon dioxide 28 with a BUN of 12, creatinine 0.69, and GFR greater than 90. Liver enzymes were within normal limits. BNP was noted to be 42.2. ASSESSMENT: 1. Recent fall on [address]. The patient was admitted on 10-21-18 because of intractable pain. The patient's pain is under better control, but the patient's daughter does not want her on tramadol because it makes her sleepy. We will give her a trial of Lidoderm patch. 2. Prior gastrointestinal bleed, secondary to peptic ulcer disease in the past. 3. Prior anemia, secondary to gastrointestinal bleed. 4. Chronic kidney disease, stage 2. 5. Diabetes type 2. 6. Prior femur fracture greater than a year ago. 7. Gastroesophageal reflux disease. 8. Cognitive deficit at times. 9. Do not resuscitate. 10. History of recurrent urinary tract infection. 11. Chronic constipation. 12. Generalized weakness. PLAN: 1. The patient was encouraged to participate the best she can in physical therapy and occupational therapy. 2. Trial of Lidoderm patch started this morning at 9:00. 3. Continue stress ulcer prophylaxis. 4. Continue deep venous thrombosis prophylaxis. 5. Continue decubitus precautions. 6. Encourage the patient to eat well. 7. Encourage the patient to get out of bed and sit in the chair as much as possible. 8. If the patient does not improve, the patient will be transferred to a nursing care facility. Job ID: [id number] MTDD
[2018-10-24] MEDS: Citalopram 10 MG TAB PO SCH (21:24)
[2018-10-24] MEDS: Donepezil HCl 10 MG TAB PO SCH (21:24)
[2018-10-25] MEDS: Lidocaine 5% Patch TD SCH (05:41)
[2018-10-25] MEDS: Famotidine 20 MG TAB PO SCH ×2 (08:38→21:52)
[2018-10-25] MEDS: Ibuprofen 200 MG TAB PO PRN (08:38)
[2018-10-25] MEDS: Polyethylene Glycol 3350 17 GM Packet PO SCH (08:38)
[2018-10-25] MEDS: Docusate 100 MG CAP PO SCH (08:38)
[2018-10-25] MEDS ORDERED: Lidocaine 5% Patch TD SCH (12:15)
[2018-10-25] MEDS: Lidocaine Patch Removal TOP SCH (17:39)
[2018-10-25] MEDS: metFORMIN 500 MG TAB PO SCH (17:39)
[2018-10-25] MEDS ORDERED: Polyethylene Glycol 3350 17 GM Packet PO PRN (17:51)
[2018-10-25] MEDS ORDERED: Docusate 100 MG CAP PO PRN (17:51)
[2018-10-25] MEDS: Donepezil HCl 10 MG TAB PO SCH (21:52)
[2018-10-25] MEDS: Citalopram 10 MG TAB PO SCH (21:52)
[2018-10-26] MEDS: Lidocaine 5% Patch TD SCH (05:38)
[2018-10-26] MEDS: Ibuprofen 200 MG TAB PO PRN (08:34)
[2018-10-26] MEDS: Famotidine 20 MG TAB PO SCH ×2 (08:35→20:57)
--- NOTE | 2018-10-26 14:51 | PRG ---
DATE OF SERVICE: 10/25/2018 SUBJECTIVE: The patient is an 88-year-old black female, admitted with acute pain and generalized weakness. She has significant problems with walking and was admitted to Swing Bed, mainly for physical therapy and occupational therapy. The patient actually did very well this morning. She took about 10 steps today and yesterday, it was about 5 steps. This afternoon, they were not able to wake her up or she did not want to be awaken for her therapy, so she missed therapy this afternoon. I did have a long talk with the patient, telling her that if she refuses therapy one more time, she will have to be either discharged to a nursing care facility or her daughter will have to take her home, but she is not able to go home with her daughter because she is not active enough. OBJECTIVE: VITAL SIGNS: Today, reveal blood pressure 125/59, pulse 81, respirations 16 to 18, O2 saturation 96% to 97% on room air, and T-max 98.3. GENERAL: This is a well-developed, well-nourished, pleasant black female in no apparent distress at this time. HEENT: Reveals normocephalic, nontraumatic cranium. Pupils equally round and reactive. Extraocular movements are intact. Nose and throat were clear and dry. NECK: Supple without masses, nodes, or bruits. CHEST: Clear to auscultation. Breath sounds are distant, somewhat shallow. No rales, no rhonchi, no wheezes, and no cough were noted. HEART: Reveals regular rate and rhythm. The patient does have a 2/6 systolic ejection murmur. ABDOMEN: Soft, nontender without organomegaly. Normal bowel sounds in all 4 quadrants. No rebound or guarding was noted. : Deferred. EXTREMITIES: Reveal generalized weakness. No clubbing, cyanosis, or edema was noted. She participated in therapy well this morning, but basically played possum and did not do any therapy this afternoon. SKIN: Warm and dry. ASSESSMENT: 1. Recent fall on . The patient was seen in the emergency room and sent home. Four days later, she returned with intractable pain and was admitted for pain control. The patient's pain is much improved. She is now using Lidoderm patches. 2. Prior history of gastrointestinal bleed, secondary to peptic ulcer disease. 3. Prior anemia, secondary to gastrointestinal bleed. 4. Chronic kidney disease, stage 2. 5. Diabetes, type 2. 6. Prior femur fracture, greater than a year ago. 7. Gastric reflux. 8. Cognitive deficits at times. 9. The patient is do not attempt resuscitation. 10. History of recurrent urinary tract infection. 11. Chronic constipation. 12. Generalized weakness. PLAN: 1. We will continue Lidoderm patches at this time. 2. Continue stress ulcer prophylaxis. 3. Continue physical therapy and occupational therapy. 4. Encourage the patient to participate in all of her therapies. 5. As the patient is not able to participate, she will be discharged either to nursing care facility or the care of her daughter. Job ID: [id number] [facility]
--- NOTE | 2018-10-26 14:52 | PRG ---
DATE OF SERVICE: 10/26/2018 SUBJECTIVE: Ms. Rodríguez is a very pleasant 88-year-old white female admitted on 10/18/[address] Romulo Gerardo with intractable back pain. Apparently, she fell before , came to the emergency room, and sent home. She returned to the emergency room on 10/18/2018, with intractable pain, was admitted for pain management and physical therapy and occupational therapy. She is doing fair in therapy when she participates. First day of therapy, she walked 5 feet and yesterday, she walked 10 feet, but she was unable to walk yesterday evening. Subjectively, the patient states she had a good night and she is hungry for breakfast this morning. OBJECTIVE: VITAL SIGNS: Today reveal blood pressure 136/69, pulse 69 to 74, respirations 17 to 19, O2 saturations 98% to 99% on room air, T-max 98.3. GENERAL: This is a well-developed, well-nourished, very pleasant black female, in no apparent distress at this time. HEENT: Reveals normocephalic, nontraumatic cranium. Pupils are equally round and reactive. Extraocular movements are intact. Nose and throat are again moist today. NECK: Supple without masses, nodes, or bruits. CHEST: Clear to auscultation. No rales, rhonchi, wheezes, or cough are noted. HEART: Reveals a regular rate and rhythm. The patient does have a 2/6 systolic ejection murmur, which is consistent. ABDOMEN: Soft, nontender without organomegaly. Normal bowel sounds are heard in all 4 quadrants. No rebound or guarding is noted. : Exam is deferred. EXTREMITIES: Reveal no clubbing, cyanosis, or edema. The patient has generalized weakness. Her pain is slightly better and she is very anxious and nervous every time she gets back, fearing the pain to come back. ASSESSMENT: 1. Recent fall on [address]. The patient was admitted on 10/18/2018 because of intractable pain. The patient was transferred to Swing Bed on 10/21/2018. 2. Pain management. 3. Chronic kidney disease, stage 2. 4. Diabetes, type 2. 5. Prior femur fracture greater than a year ago. 6. Gastroesophageal reflux disease with prior gastrointestinal bleed secondary to peptic ulcer disease. 7. Cognitive deficits. 8. Do not attempt resuscitation. 9. History of recurrent urinary tract infections. 10. Chronic constipation. 11. Generalized weakness. PLAN: 1. The patient is encouraged to stay out of bed as much as possible today above her strength since therapy would not be in today. 2. Continue Lidoderm patch every morning. 3. Continue stress ulcer prophylaxis. 4. Continue DVT prophylaxis. 5. Continue decubitus precautions. 6. Encourage the patient to eat well. 7. Encourage the patient to stay out of bed in the chair as much as possible today. Job ID: [id number]
[2018-10-26] MEDS: Lidocaine Patch Removal TOP SCH (17:52)
[2018-10-26] MEDS: metFORMIN 500 MG TAB PO SCH (17:52)
[2018-10-26] MEDS: Donepezil HCl 10 MG TAB PO SCH (20:58)
[2018-10-26] MEDS: Citalopram 10 MG TAB PO SCH (20:58)
[2018-10-27] MEDS: Lidocaine 5% Patch TD SCH (06:11)
[2018-10-27] MEDS: Famotidine 20 MG TAB PO SCH ×2 (09:37→21:04)
[2018-10-27] MEDS: Ibuprofen 200 MG TAB PO PRN (09:37)
[2018-10-27] MEDS: metFORMIN 500 MG TAB PO SCH (17:40)
[2018-10-27] MEDS: Lidocaine Patch Removal TOP SCH (17:41)
[2018-10-27] MEDS: Citalopram 10 MG TAB PO SCH (21:04)
[2018-10-27] MEDS: Donepezil HCl 10 MG TAB PO SCH (21:04)
[2018-10-28] MEDS: Lidocaine 5% Patch TD SCH (05:42)
--- NOTE | 2018-10-28 07:17 | PRG ---
DATE OF SERVICE: 10/27/2018 SUBJECTIVE: Ms. Rodríguez is a well-developed, well-nourished 88-year-old white female, admitted on 10/18/[address] Gerardo with intractable back pain. She apparently fell on [address], went to the emergency room, and went home. She returned to the emergency room with intractable pain on 10/18 and was admitted for acute pain control. She was admitted to Swing Bed on 10/21 for physical therapy and occupational therapy to increase her strength, stamina, and keep her under good pain control. The patient is actually doing slowly better. She does have still quite a bit of pain, and I think on Sunday, she only walked 10 feet. Subjectively, the patient states she slept well last night, is hungry, and would try to sit up more in the chair today. OBJECTIVE: VITAL SIGNS: Today, reveal blood pressure 146/65, pulse 66 to 83, respirations 12 to 16, O2 saturation 96% to 97% on room air, T-max 98.2. GENERAL: This is a well-developed, well-nourished, very pleasant black female, in no apparent distress at this time. HEENT: Reveals normocephalic, nontraumatic cranium. Pupils are equally round and reactive. Extraocular movements are intact. Nose and throat are slightly dry. NECK: Supple without masses, nodes, or bruits. CHEST: Clear to auscultation. No rales, rhonchi, wheezes, or cough is noted. HEART: Reveals a regular rate and rhythm. The patient continues with a 2/6 systolic ejection murmur. ABDOMEN: Soft, nontender without organomegaly. Normal bowel sounds noted in all 4 quadrants. No rebound or guarding is noted. : Exam is deferred. EXTREMITIES: Reveal no clubbing, cyanosis, or edema. The patient has generalized weakness and states when she is in bed, her pain is very good. She is anxious when she gets up and stands. ASSESSMENT: 1. Recent fall on [address]. The patient was admitted on 10/18/2018 because of intractable pain, transferred to Swing Bed on 10/21 for PT, OT, and pain management. 2. Pain management. 3. Chronic kidney disease, stage 2. 4. Diabetes, type 2. 5. Prior femur fracture a year ago. 6. Gastroesophageal reflux disease with gastrointestinal bleed in the past. 7. Cognitive deficits. 8. Do not attempt resuscitation. 9. History of recurrent urinary tract infections. 10. Chronic constipation. 11. Generalized weakness. PLAN: 1. The patient is encouraged to sit in a chair all day today. 2. Continue Lidoderm patch. 3. Continue stress ulcer prophylaxis. 4. DVT prophylaxis. 5. Continue decubitus precaution. 6. Encourage the patient to eat well. Job ID: [id number]
[2018-10-28] MEDS: Famotidine 20 MG TAB PO SCH ×2 (08:42→20:45)
[2018-10-28] MEDS: Ibuprofen 200 MG TAB PO PRN (12:24)
[2018-10-28] MEDS: metFORMIN 500 MG TAB PO SCH (17:02)
[2018-10-28] MEDS: Lidocaine Patch Removal TOP SCH (18:23)
--- NOTE | 2018-10-28 19:55 | PRG ---
DATE OF SERVICE: 10/28/2018 SUBJECTIVE: The patient is a well-developed, well-nourished, 88-year-old black female, who was seen by Dr. Gerardo with intractable back pain on 10/18. Apparently, she fell on [address] and went to emergency room and was discharged home. When she came back with intractable pain, she was admitted for acute pain control to the acute care. I saw her when I returned territory sales consultant and on 10/21, she was admitted to swing bed for physical therapy and occupational therapy to increase her strength, stamina, and to keep her pain under good control. PHYSICAL EXAMINATION: VITAL SIGNS: Revealed blood pressure this morning was 153/65, pulse 70 to 75, respirations 18, O2 saturation 96% to 97%, T-max 98.3. GENERAL: This is a well-developed, well-nourished, pleasant black female, in no apparent distress at this time. HEENT: Reveals normocephalic and nontraumatic cranium. Pupils are equally round, reactive. Extraocular movements are intact. Nose and throat are slightly dry. NECK: Supple without masses, nodes, or bruits. CHEST: Clear to auscultation. No rales, no rhonchi, no wheezes are heard. HEART: Reveals a regular rate and rhythm without murmurs, gallops, or rubs. ABDOMEN: Slightly obese, soft, and nontender without organomegaly. Normal bowel sounds are noted. No rebound or guarding is noted. : Deferred. EXTREMITIES: Reveal no clubbing, cyanosis, or edema, just generalized weakness. The patient was then seen while she was in physical therapy. She walked approximately 15 to 18 feet and then rested. Then, she walked a little bit longer, which is much improved over the last week. ASSESSMENT: 1. Recent fall on [place] [address]. The patient was admitted on 10/18/2018 because of intractable pain. Then, the patient was transferred to swing bed on 10/21/2018 for PT and OT and pain management. 2. Chronic kidney disease, stage 2. 3. Diabetes type 2. 4. Pain management. 5. Gastroesophageal reflux disease with prior gastrointestinal bleed in the past. 6. Cognitive deficits. 7. Prior femur fracture a year ago. 8. History of recurrent urinary tract infection. 9. Chronic constipation. 10. Generalized weakness. 11. Do not attempt resuscitation status. PLAN: 1. We will encourage the patient to stay out of her bed and stay more in the chair most of the day. 2. Continue with physical therapy and occupational therapy to have the patient walk. 3. Stress ulcer prophylaxis. 4. Decubitus precautions. 5. Deep venous thrombosis prophylaxis. 6. Encourage the patient to eat well. Job ID: [id number]
[2018-10-28] MEDS: Donepezil HCl 10 MG TAB PO SCH (20:45)
[2018-10-28] MEDS: Citalopram 10 MG TAB PO SCH (20:45)
[2018-10-29] MEDS: Lidocaine 5% Patch TD SCH (05:38)
[2018-10-29] MEDS: Ibuprofen 200 MG TAB PO PRN (09:02)
[2018-10-29] MEDS: Famotidine 20 MG TAB PO SCH ×2 (09:03→21:07)
[2018-10-29] MEDS: metFORMIN 500 MG TAB PO SCH (17:41)
[2018-10-29] MEDS: Lidocaine Patch Removal TOP SCH (17:42)
[2018-10-29] MEDS: Citalopram 10 MG TAB PO SCH (21:07)
[2018-10-29] MEDS: Donepezil HCl 10 MG TAB PO SCH (21:08)
[2018-10-30] MEDS: Lidocaine 5% Patch TD SCH (05:29)
--- NOTE | 2018-10-30 07:40 | PRG ---
DATE OF SERVICE: 10/29/2018 SUBJECTIVE: The patient is an 88-year-old black female, who went to the emergency room after falling on [address]. She was found to have quite a bit of pain, was seen, and transferred back home. She returned back to the hospital emergency room on 10/18/2018, for intractable pain. She was seen by Dr. Gerardo and admitted to the hospital into the acute care unit. I saw the patient on 10/21/2018, and admitted the patient to the Swing Bed, so she could have physical therapy and occupational therapy to increase her strength and stamina. The patient has actually done very well. Yesterday, she walked approximately 60 feet. When she came in, she was barely able to stand. She is making slow progress, but she is very resilient. She has difficulty standing and is not able to be discharged to her daughter's care, although the patient refused to go to the [facility]. PHYSICAL EXAMINATION: VITAL SIGNS: Today reveal blood pressure 128/60, pulse 74 to 77, respirations 16 to 18, O2 saturations 95% to 98% on room air, and T-max 98.2. GENERAL: The is a well-developed, well-nourished, black female, in no apparent distress at this time. HEENT: Reveals normocephalic and nontraumatic cranium. The pupils are equally round and reactive. Extraocular movements are intact. Nose and throat are dry and clear. NECK: Supple without masses, nodes, or bruits. CHEST: Clear to auscultation, but somewhat shallow. No rales, rhonchi, wheezes, or cough is heard. HEART: Reveals a regular rate and rhythm without murmurs, gallops, or rubs. ABDOMEN: Slightly obese and soft. It is nontender without organomegaly. Normal bowel sounds are noted in all 4 quadrants. No rebound or guarding is noted. : Deferred. EXTREMITIES: Reveal no clubbing or cyanosis. Just generalized weakness and some pain with standing. The patient did much better yesterday with walking and walked a total of approximately 60 feet. ASSESSMENT: 1. Recent fall on [address] and admission to acute care on October 18, 2018, because of intractable pain. The patient was transferred to Swing Bed on 10/21/2018 for PT and OT. 2. Chronic kidney disease, stage 2. 3. Diabetes, type 2. 4. Pain management. 5. Gastroesophageal reflux disease with prior gastrointestinal bleed. 6. Cognitive deficits. 7. Prior femur fracture a year ago. 8. History of recurrent urinary tract infections. 9. Chronic constipation. 10. Generalized weakness. 11. Do not attempt resuscitation status. PLAN: 1. Continue the patient on physical therapy and occupational therapy. 2. Encourage the patient to be out of bed as much as possible. 3. Stress ulcer prophylaxis. 4. Decubitus precautions. 5. DVT prophylaxis. 6. Encourage the patient to eat well. Job ID: [id number]
[2018-10-30] MEDS: Ibuprofen 200 MG TAB PO PRN (08:45)
[2018-10-30] MEDS: Famotidine 20 MG TAB PO SCH ×2 (08:47→21:43)
--- NOTE | 2018-10-30 10:16 | PRG ---
DATE OF SERVICE: 10/30/2018 SUBJECTIVE: Ms. Rodríguez is a 88-year-old black female who fell and went to the emergency room on . She had quite a bit of pain, was sent home. Unfortunately, she returned to the emergency room on 10/18 for intractable pain. She was seen by Dr. Gerardo, was admitted to the hospital in the acute care unit for pain management. On 10/13, I saw her and admitted the patient to swing bed so she can have physical therapy and occupational therapy. She continues to do slightly better every day with her therapy. It is felt that she wants to go home. Her daughter wants to take her to her home, so she will be discharged tomorrow. PHYSICAL EXAMINATION: VITAL SIGNS: Today reveal blood pressure this morning 136/62, pulse 68 to 84, respirations 18 to 22, O2 saturation 94% to 98% on room air. T-max 98.6. GENERAL: This is a well-developed, well-nourished, slightly obese black female in no apparent distress at this time. HEENT: Reveals normocephalic, nontraumatic cranium. Pupils equally round, reactive. Extraocular movements intact. Nose and throat are slightly dry. NECK: Supple without masses, nodes, or bruits. CHEST: Clear to auscultation. No rales, rhonchi, wheezes, or cough is noted. HEART: Reveals a regular rate and rhythm without murmurs, gallops, or rubs. ABDOMEN: Soft, nontender without organomegaly. Normal bowel sounds are noted. No rebound or guarding is noted. : Deferred. EXTREMITIES: Reveal no clubbing, cyanosis, or edema. The patient did exercise in bed because she pretty much did not want to get up and walk today. She did walk about 60 feet yesterday and the day before. ASSESSMENT: 1. Recent fall on admission to acute care on 10/18. Her intractable pain was addressed and she was transferred to swing bed on 10/21/2018 for PT and OT. Since that time, she has gradually been doing better. 2. Chronic kidney disease, stage 2. 3. Diabetes type 2. 4. Pain management. 5. Gastroesophageal reflux disease with prior gastrointestinal bleed. 6. Cognitive deficits. 7. Prior femur fracture a year ago. 8. History of recurrent UTIs. 9. Chronic constipation. 10. Generalized weakness. 11. DNR. PLAN: 1. Continue physical therapy today and occupational therapy today. 2. The patient is encouraged to be out of bed as much as possible. Presently, sitting in a wheelchair. 3. Stress ulcer prophylaxis. 4. Decubitus precautions. 5. DVT prophylaxis. 6. Encourage the patient to continue to eat well. 7. The patient will be discharged tomorrow. Job ID: [id number]
[2018-10-30] MEDS: Lidocaine Patch Removal TOP SCH (18:04)
[2018-10-30] MEDS: metFORMIN 500 MG TAB PO SCH (18:04)
[2018-10-30] MEDS: Citalopram 10 MG TAB PO SCH (21:43)
[2018-10-30] MEDS: Donepezil HCl 10 MG TAB PO SCH (21:43)
[2018-10-31] MEDS: Lidocaine 5% Patch TD SCH (06:08)
[2018-10-31 08:21] VITALS: BP 129/63; TEMP 98.3
[2018-10-31] MEDS: Ibuprofen 200 MG TAB PO PRN (09:00)
[2018-10-31] MEDS: Famotidine 20 MG TAB PO SCH (09:00)
--- NOTE | 2018-11-01 02:27 | DIS ---
DATE OF ADMISSION: 10/21/2018 DATE OF DISCHARGE: 10/31/2018 Ms. Rodríguez is an 88-year-old black female who fell at home on [address]. She was seen at the emergency room with lot of pain, was treated and sent home. On October 18, she returned to the emergency room with intractable pain, was seen by Dr. Gerardo, was admitted to the hospital for acute pain management. On 10/21/2018, the patient was transferred from acute care to swing bed, so she could have physical therapy and occupational therapy to increase her strength and stamina since she was so weak. She has remained in the swing bed at that time and has actually received therapies, actually walking much better. She is not really ready to go home, but she pretty much demands to go home. Her daughter said she will take her home to her home where she will continue with outpatient therapy. PHYSICAL EXAMINATION: VITALS SIGNS: Today, the vital signs reveal blood pressure 129/63, pulse 81, respirations 16 to 20, O2 saturation 97% to 99% on room air, and T-max 98.3. GENERAL: On physical exam, this is a well-developed, well-nourished, somewhat obstinate black female in no apparent distress at this time. She has been refusing therapy at times and states she just wants to go home. HEENT: Reveals normocephalic and nontraumatic cranium. Pupils are equal, round, and reactive. Extraocular movements are intact. Nose and throat are slightly dry today. NECK: Supple without masses, nodes, or bruits. CHEST: Clear to auscultation. No rales, rhonchi, wheezes, or cough is noted. HEART: Reveals a regular rate and rhythm without murmurs, gallops, or rubs. ABDOMEN: Soft, nontender without organomegaly. Normal bowel sounds are noted in all four quadrants. No rebound or guarding is noted. EXAM: Deferred. EXTREMITIES: Reveal no clubbing, cyanosis, or edema. The patient states she is going home today. The patient's daughter states she will take her home. MEDICATIONS: Reveal, patient will be discharged on the following. 1. Aspirin 81 mg daily. 2. Celexa 10 mg daily. 3. Colace 100 mg b.i.d. 4. Aricept 10 mg at bedtime. 5. Pepcid 20 mg b.i.d. 6. Motrin 200 mg q.6 p.r.n. with food. 7. Glucophage 500 mg every evening with meals. 8. MiraLAX 17 g daily p.r.n. ASSESSMENT: 1. Recent fall on [address] with admission to acute care on 10/18/2018. Patient was transferred to swing bed on 10/21/2018 for PT and OT. 2. Patient is ready for discharge today on 10/31/2018. 3. Chronic kidney disease, stage 2. 4. Diabetes type 2. 5. Pain management. 6. Gastroesophageal reflux with a prior history of gastrointestinal bleed. 7. Cognitive deficits. 8. Prior femur fracture year ago. 9. History of urinary tract infections, which have been recurring. 10. Chronic constipation. 11. Generalized weakness. 12. Noncompliance at times. 13. Do not attempt resuscitation. PLAN: 1. Patient will be discharged to the care of her daughter and she will be staying with her daughter because she cannot stay by herself. 2. The patient is encouraged to stay out of bed as much as possible and sitting in a chair. 3. Continue physical therapy, occupational therapy outpatient through home health. 4. Stress ulcer prophylaxis. 5. Decubitus precautions. 6. DVT prophylaxis. 7. Continue to encourage the patient to eat well. 8. The patient will be discharged to the care of her daughter. Job ID: [id number]
== END 2018-10-31 11:00 | disposition home health service (06) | DRG 552 ==
LOC: NAV ACUTE 13:26
PROVIDERS: ADMIT Family Medicine; ATTEND Family Medicine
DX: M54.9 Dorsalgia, unspecified (principal); K21.9 Gastro-esophageal reflux disease without esophagitis; E11.22 Type 2 diabetes mellitus with diabetic chronic kidney disease; N18.2 Chronic kidney disease, stage 2 (mild); Z66 Do not resuscitate; K59.09 Other constipation; R53.1 Weakness; G31.84 Mild cognitive impairment of uncertain or unknown etiology; Z96.641 Presence of right artificial hip joint; Z87.440 Personal history of urinary (tract) infections; Z90.710 Acquired absence of both cervix and uterus; Z90.49 Acquired absence of other specified parts of digestive tract; Z79.82 Long term (current) use of aspirin; Z79.899 Other long term (current) drug therapy; Z87.81 Personal history of (healed) traumatic fracture
CPT/HCPCS: 36416; 80053; 83880; 85025

== ENCOUNTER 2018-12-29 15:25 | Inpatient (IN) | payer MEDICARE ==
[~2018-12-29 15:25] MED LIST: Iopamidol 370 76% 100 ML VIAL ONE
[2018-12-29 16:13] LABS: #Basophils 0.1 thou/uL (0.0-0.2); #Eosinphils 0.2 thou/uL (0.0-0.7); #Lymphocytes 2.2 thou/uL (1.20-3.40); #Monocytes 0.7 thou/uL (0.11-0.59); #Neutrophils 4.3 thou/uL (1.40-6.50); %Basophils 1.3 % (0.0-1.0); %Eosinophils 2.4 % (0.0-10.0); %Lymphocytes 30.2 % (21.0-51.0); %Monocytes 8.7 % (0.0-10.0); %Neutrophils 57.4 % (42.0-75.0); Hemoglobin 14.3 g/dL (12.0-16.0); Mean Corpuscular HGB CONC 31.4 g/dL (32.0-36.0); Mean Corpuscular Volume 98.7 fL (78.0-98.0); Mean Platelet Volume 6.1 fL (7.4-10.4); Platelet Count 224 thou/uL (130-400); RBC Distribution Width 12.4 % (11.5-14.5); Red Blood Cell (RBC) Count 4.61 mill/uL (4.20-5.40); White Blood Cell (WBC) Count 7.4 thou/uL (4.8-10.8)
[2018-12-29 16:17] LABS: Bilirubin Negative (Negative); Blood, Urine Trace (Negative); Clarity Clear (Clear); Glucose, Urine (Dipstick) Negative (Negative); Leukocyte Small (Negative); Nitrite Positive (Negative); Protein, Urine (Dipstick) Negative (Neg-Trace); pH, Urine 5.5 (5.0-9.0)
[2018-12-29 16:20] LABS: Bacteria/HPF 3+ HPF (None Seen); RBC/HPF 0-3 HPF (0-3); Squamous Epithelial None Seen HPF (0-3)
[2018-12-29 16:26] LABS: ALT (SGPT) 16 U/L (8-55); AST (SGOT) 18 U/L (5-34); Albumin 3.9 g/dL (3.4-4.8); Alkaline Phosphatase 90 U/L (40-150); Anion Gap 15 mmol/L (10-20); BUN (Urea Nitrogen) 11 mg/dL (9.8-20.1); Bilirubin, Total 0.4 mg/dL (0.2-1.2); CK (CPK) 25 U/L (29-168); Calc. Creatinine Clearance 0 mL/min (70-130); Calcium 9.7 mg/dL (7.8-10.44); Carbon Dioxide 23 mmol/L (23-31); Chloride 104 mmol/L (98-107); Estimated GFR-MDRD Greater than 90; Globulin 2.9 g/dL (2.4-3.5); Glucose 124 mg/dL (83-110); Lipase 33 U/L (8-78); Potassium 4.3 mmol/L (3.5-5.1); Protein, Total 6.8 g/dL (6.0-8.3); Sodium 138 mmol/L (136-145)
[2018-12-29] MEDS ORDERED: cefTRIAXone\\ROCEPHIN 1 GM VIAL ONE (16:31)
--- NOTE | 2018-12-29 17:17 | CT ---
CT BRAIN NONCONTRAST: HISTORY: 88-year-old male with altered mental status. FINDINGS: There is no midline shift or any other mass effect. There is no evidence of acute intracranial hemor rhage, large cortical infarct, obstructive hydrocephalus, or extraaxial fluid collection. The calvar ium is intact. There is diffuse parenchymal volume loss. There are low attenuation areas in the whi te matter. These are nonspecific, but in a patient of this age, they are probably chronic ischemic w sofia matter changes due to microvascular atherosclerosis. IMPRESSION: 1) No acute intracranial findings. 2) Involutional changes and chronic ischemic white matter changes. jn POS: [facility]
--- NOTE | 2018-12-29 17:28 | CT ---
CT ABDOMEN AND PELVIS WITH CONTRAST: Indication: Altered mental status. Right lower quadrant abdominal pain. Comparison: CT lumbar spine, 10-18-18; CT pelvis 10-18-18; CT of the abdomen and pelvis was reviewed from [facility] dated 12-30-07. FINDINGS: Lung bases are clear. No focal hepatic lesion is evident. There is a small hiatal hernia. The gallbladder is mildly hydropic with layered sludge versus small stones. No definite wall thickeni ng or pericholecystic inflammatory change is evident. This is similar to the exam from [facility] on 12/30/07 . Pancreas, adrenal glands, and spleen appear within normal limits. There is stable left nephrolithias is. There is a moderate amount of retained stool within the colon. The appendix is not definitely seen; however, there are no secondary signs for appendicitis. There is scattered colonic diverticulosis. The uterus is surgically absent. 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 There is stable wedge compression abnormality of L1. There is incomplete h ealing of bilateral sacral ala insufficiency fractures. There is diffuse osteopenia. IMPRESSION: 1. No definite CT explanation for patient's right lower quadrant abdominal pain. There is a prominent amount of retained stool. Some of the symptoms could be related to constipation. 2. The gallbladder is mildly hydropic but had a similar appearance back in 2007. There is layered den sity within the gallbladder suspicious for sludge or small stones. Would recommend correlation with a clinical exam. If there are findings suspicious for possible acute cholecystitis, right upper quadra nt ultrasound would be recommended. 3. Left nephrolithiasis. 4. Stable L1 mild compression abnormality. 5. Incompletely healed bilateral sacral ala insufficiency fractures. POS: [facility]
--- NOTE | 2018-12-29 19:02 | RAD ---
RADIOGRAPH CHEST 1 VIEW: HISTORY: 88-year-old female with dyspnea. FINDINGS: There are no air space densities, pulmonary edema, pneumothorax, or cardiomegaly. The lateral costop hrenic angles are sharp. IMPRESSION: No acute cardiopulmonary findings. mg POS: [facility]
[2018-12-29 19:15] VITALS: BMI 24.8
[2018-12-29] MEDS ORDERED: Promethazine 25 MG TAB PO PRN (20:33)
[2018-12-29] MEDS ORDERED: Loperamide HCl 2 MG CAP PO PRN ×2 (20:34)
[2018-12-29] MEDS ORDERED: Senokot S 8.6-50 MG TAB PO PRN (20:34)
[2018-12-29] MEDS ORDERED: Ondansetron PF 4 MG/2 ML Vial IVP PRN (20:34)
[2018-12-29] MEDS ORDERED: Dextrose 5% in Water 1,000 ML IV PRN (20:38)
[2018-12-29] MEDS ORDERED: Dextrose 50% Abboject 50 ML SYRINGE SLOW IVP PRN (20:38)
[2018-12-29] MEDS: Famotidine 20 MG TAB PO SCH (21:21)
[2018-12-29] MEDS: Citalopram 10 MG TAB PO SCH (21:22)
[2018-12-29] MEDS: Donepezil HCl 5 MG TAB PO SCH (21:22)
--- NOTE | 2018-12-30 02:35 | HP ---
SUBJECTIVE: Ms. Rodríguez is a very pleasant 88-year-old black female, who presented to the emergency room for confusion. Apparently, she had nausea, vomiting, and little fever about 3 days ago. She has mental status changes, so her family brought her in. Apparently, the family states she wakes up a lot and acts like she is seeing things that are not there. She did have 1 episode of vomiting. She was not able to take any of her medications today. She is just much more confused than normal. She was seen at [facility] and found to have urinary tract infection. [place] that she was somewhat dehydrated and needed fluids and needed some IV antibiotics, so she was admitted to my care. PAST MEDICAL HISTORY: Positive for diabetes, multiple kidney infections, GI bleed, constipation. SURGICAL HISTORY: Positive for tonsillectomy, appendectomy as a child, hysterectomy, total hip and back in 2011, total distal femur back in 2016, EGD in 2016 and colonoscopy 2016. FAMILY HISTORY: Father's family history is unknown. Mother's family history reveals she had stomach cancer, diagnosed with hypertension. SOCIAL HISTORY: Reveals the patient does not smoke, but does dip snuff. She does not drink alcohol or drugs. Not sexually active. She presently does` not drive. PRESENT MEDICATIONS: Reveal she presently takes the followin. Aspirin 81 mg a day. 2. Metformin 500 mg a day. 3. Citalopram 10 mg a day. 4. Donepezil 10 mg at bedtime. 5. Tylenol p.r.n. REVIEW OF SYSTEMS: Reveal the patient has had some fever and she thinks she may have had some chills, but no night sweats. She has lost most of her appetite and she feels tired. She denies any vision or hearing changes. Denies any hearing problems or nasal congestion. She denies any chest pain, palpitations, or skipped beats. She denies any shortness of breath, cough, cold, congestion. Denies any nausea or vomiting today, but did have vomiting 3 days ago. Denies any diarrhea or constipation. Denies any dysuria or urgency, but states she has had some frequency. Denies any musculoskeletal joint pain or joint stiffness or myalgias. Denies any bruises or rashes. Does not complain of headache, lightheadedness, or sleep problems. PHYSICAL EXAMINATION: GENERAL: This is a well-developed, well-nourished, very pleasant, elderly 88-year-old black female, recognized me as soon as I walk in the room. HEENT: Normocephalic and nontraumatic cranium. Pupils were equally round and reactive. Extraocular movements are intact. Nose and throat are slightly dry, but clear. NECK: Supple without masses, nodes, or bruits. CHEST: Clear to auscultation. No rales, no rhonchi. No wheezes are heard. HEART: Reveals a regular rate and rhythm without murmurs, gallops, or rubs. ABDOMEN: Soft, nontender, slightly distended without organomegaly. Normal bowel sounds are noted in all 4 quadrants. No rebound or guarding is noted. GENITOURINARY: Deferred. EXTREMITIES: Reveal no clubbing or cyanosis with trace edema. ASSESSMENT: 1. Urinary tract infection. 2. Diabetes. 3. Anxiety depressive disorder. 4. Dementia. 5. Constipation. 6. Acute cystitis. 7. Reactive depression. 8. Alzheimer's disease. PLAN: 1. The patient is admitted to the hospital. The patient was started on Rocephin and given Rocephin IV 1 g in the ER. We will continue at that time and await culture and sensitivities. 2. Continue the patient's present medications. 3. Stress ulcer prophylaxis. 4. Decubitus precautions. 5. DVT prophylaxis. 6. Continue monitoring labs tomorrow morning. Job ID: [id number]
[2018-12-30 05:56] LABS: #Basophils 0.1 thou/uL (0.0-0.2); #Eosinphils 0.2 thou/uL (0.0-0.7); #Lymphocytes 2.6 thou/uL (1.20-3.40); #Monocytes 0.6 thou/uL (0.11-0.59); %Basophils 1.3 % (0.0-1.0); %Eosinophils 2.9 % (0.0-10.0); %Lymphocytes 34.4 % (21.0-51.0); %Neutrophils 53.3 % (42.0-75.0); Hemoglobin 13.6 g/dL (12.0-16.0); Mean Corpuscular HGB CONC 31.7 g/dL (32.0-36.0); Mean Corpuscular Hemoglobin 31.1 pg (27.0-31.0); Mean Corpuscular Volume 98.3 fL (78.0-98.0); Mean Platelet Volume 5.7 fL (7.4-10.4); Platelet Count 219 thou/uL (130-400); RBC Distribution Width 12.5 % (11.5-14.5); Red Blood Cell (RBC) Count 4.35 mill/uL (4.20-5.40); White Blood Cell (WBC) Count 7.5 thou/uL (4.8-10.8)
[2018-12-30 06:10] LABS: ALT (SGPT) 13 U/L (8-55); AST (SGOT) 14 U/L (5-34); Albumin 3.7 g/dL (3.4-4.8); Alkaline Phosphatase 76 U/L (40-150); Anion Gap 12 mmol/L (10-20); BUN (Urea Nitrogen) 12 mg/dL (9.8-20.1); Bilirubin, Total 0.4 mg/dL (0.2-1.2); Calc. Creatinine Clearance 70 mL/min (70-130); Calcium 9.5 mg/dL (7.8-10.44); Carbon Dioxide 25 mmol/L (23-31); Chloride 104 mmol/L (98-107); Estimated GFR-MDRD Greater than 90; Globulin 2.7 g/dL (2.4-3.5); Glucose 103 mg/dL (83-110); Protein, Total 6.4 g/dL (6.0-8.3); Sodium 137 mmol/L (136-145)
[2018-12-30] MEDS: Polyethylene Glycol 3350 17 GM Packet PO SCH (09:00)
[2018-12-30] MEDS: Aspirin 81 mg Enteric Coated Tablet PO SCH (09:00)
[2018-12-30] MEDS: Famotidine 20 MG TAB PO SCH ×2 (09:00→20:57)
--- NOTE | 2018-12-30 10:21 | PRG ---
DATE OF SERVICE: 12/30/2018 SUBJECTIVE: Ms. Rodríguez is a very pleasant 88-year-old black female, patient of mine, who became very confused. She was brought to the emergency room and found to have a significant urinary tract infection. She was given IV Rocephin, has remained on Rocephin, and was admitted to the hospital until we get cultures and sensitivities back. She is actually doing very well. States she feels much better today. The patient's daughter is in the room, states oh my God she is so much improved than when we brought her in. OBJECTIVE: VITAL SIGNS: Today reveal blood pressure 129/70, pulse 69 to 72, respirations 18 to 20, O2 saturation 96% to 98% on room air, T-max 97.9. GENERAL: This is a well-developed, well-nourished, very pleasant black female, in no apparent distress at this time. HEENT: Normocephalic and nontraumatic cranium. Pupils are equally round and reactive. Extraocular movements are intact. Nose and throat are slightly dry, but clear. NECK: Supple without masses, nodes, or bruits. CHEST: Clear to auscultation. No rales, no rhonchi. No wheezes or cough is heard. HEART: Reveals a regular rate and rhythm without murmurs, gallops, or rubs. ABDOMEN: Soft, nontender without organomegaly. Normal bowel sounds are noted. No rebound or guarding is noted. : Deferred. EXTREMITIES: Reveal no clubbing or cyanosis with trace edema. ASSESSMENT: 1. Urinary tract infection. Culture still pending. 2. Diabetes. 3. Anxiety and depressive disorder. 4. Dementia. 5. Constipation. 6. Acute cystitis. 7. Reactive depression. 8. Alzheimer disease. 9. Generalized weakness. PLAN: 1. The patient will continue with IV Rocephin 1 g until we get the cultures back. 2. Continue other present medications. 3. Stress ulcer prophylaxis. 4. Decubitus precautions. 5. DVT prophylaxis. 6. The patient out of bed as much as possible. 7. The patient's daughter request soft diabetic diet. Job ID: [id number]
[2018-12-30] MEDS: cefTRIAXone\\ROCEPHIN 1 GM in Sodium Chloride 0.9% 100 ML IVPB SCH (12:59)
[2018-12-30] MEDS: metFORMIN 500 MG TAB PO SCH (18:25)
[2018-12-30] MEDS: Citalopram 10 MG TAB PO SCH (20:57)
[2018-12-30] MEDS: Donepezil HCl 5 MG TAB PO SCH (20:57)
[2018-12-31] MEDS: Polyethylene Glycol 3350 17 GM Packet PO SCH (08:48)
[2018-12-31] MEDS: Aspirin 81 mg Enteric Coated Tablet PO SCH (08:48)
[2018-12-31] MEDS: Famotidine 20 MG TAB PO SCH ×2 (08:48→21:47)
--- NOTE | 2018-12-31 10:25 | PRG ---
DATE OF SERVICE: 12/31/2018 SUBJECTIVE: Ms. Rodríguez is a very pleasant 88-year-old white female, who presented to the emergency room with altered mental status and confusion. She was found to have a very significant urinary tract infection and was started on Rocephin. She improves immensely. We are continuing her antibiotics until we get the final culture. The patient's daughter is in room again this morning and she agrees that she is much improved. OBJECTIVE: VITAL SIGNS: Today reveal blood pressure 140/63, pulse 68 to 75, respirations 20, O2 saturation 96% on room air, and temperature 98.6. GENERAL: This is a well-developed, well-nourished, very pleasant, alert, and oriented x3 black female. HEENT: Reveals normocephalic and nontraumatic cranium. Pupils are equal, round, and reactive. Extraocular movements are intact. Nose and throat are moist. NECK: Supple without masses, nodes, or bruits. CHEST: Clear to auscultation. No rales, no rhonchi, no wheezes, and no cough is noted. HEART: Reveals a regular rate and rhythm without murmurs, gallops, or rubs. ABDOMEN: Soft, scaphoid, and nontender without organomegaly. Normal bowel sounds are noted in all 4 quadrants. No rebound or guarding is noted. : Deferred. EXTREMITIES: Reveal no clubbing, cyanosis, or edema. Cultures still pending, but no growth today. ASSESSMENT: 1. Urinary tract infection, still pending. 2. Diabetes. 3. Anxiety, depressive disorder. 4. Dementia. 5. Constipation. 6. Acute cystitis. 7. Reactive depression. 8. Alzheimer disease. 9. Generalized weakness. PLAN: 1. The patient will continue Rocephin for another day. If the cultures return negative, we will most likely discharge her tomorrow after her last Rocephin dose. 2. Continue other present medications. 3. Stress ulcer prophylaxis. 4. Decubitus precautions. 5. DVT prophylaxis. 6. Keep the patient out of bed as much as possible. 7. The patient's daughter requests soft diabetic diet, which we have already done. Job ID: [id number]
[2018-12-31] MEDS: cefTRIAXone\\ROCEPHIN 1 GM in Sodium Chloride 0.9% 100 ML IVPB SCH (13:11)
[2018-12-31] MEDS: metFORMIN 500 MG TAB PO SCH (17:22)
[2018-12-31] MEDS: Donepezil HCl 5 MG TAB PO SCH (21:46)
[2018-12-31] MEDS: Citalopram 10 MG TAB PO SCH (21:46)
[2019-01-01] MEDS: Famotidine 20 MG TAB PO SCH (08:34)
[2019-01-01] MEDS: Polyethylene Glycol 3350 17 GM Packet PO SCH (08:34)
[2019-01-01] MEDS: Aspirin 81 mg Enteric Coated Tablet PO SCH (08:34)
[2019-01-01 11:51] VITALS: BP 129/63; TEMP 96.8
[2019-01-01] MEDS: cefTRIAXone\\ROCEPHIN 1 GM in Sodium Chloride 0.9% 100 ML IVPB SCH (13:10)
--- NOTE | 2019-01-02 04:27 | DIS ---
DATE OF ADMISSION: 12/29/2018 DATE OF DISCHARGE: 01/01/2019 HOSPITAL COURSE: Ms. Rodríguez is a very pleasant 88-year-old black female presented to the emergency room with nausea, vomiting, and altered mental status. She was found to have a urinary tract infection and was started on Rocephin IV. She stayed on Rocephin and had her third dose today. Her culture and sensitivity came back today growing E coli. It is sensitive to ampicillin, nitrofurantoin, and trimethoprim sulfamethoxazole as oral antibiotics. It is sensitive to Rocephin, but she will be going home today. After discussion with the family, it is felt that we will put the patient on Bactrim DS one pill twice a day for seven more days. She is ready to go home, and feeling much better and back to her normal self. DISCHARGE MEDICATIONS: Will include the following. 1. Bactrim DS one pill twice a day for seven more days. 2. Celexa 10 mg daily. 3. Aricept 10 mg daily. 4. Metformin 500 mg once a day with meals. 5. MiraLAX p.r.n. Patient will also take aspirin and Tylenol p.r.n. PHYSICAL EXAMINATION: GENERAL: This is a well-developed, well-nourished, very pleasant, elderly black female, who states she is doing great and wants to go home. HEENT: Normocephalic and nontraumatic cranium. The pupils are equally round and reactive. Extraocular movements are intact. Nose and throat are moist today. NECK: Supple without masses, nodes, or bruits. CHEST: Clear to auscultation. No rales, rhonchi, wheezes, or cough is heard. HEART: Reveals a regular rate and rhythm without murmurs, gallops, or rubs. ABDOMEN: Soft, nontender without organomegaly. Normal bowel sounds are noted in all 4 quadrants. No rebound or guarding is noted. : Deferred. EXTREMITIES: Reveal no clubbing, cyanosis, or edema. The patient is back to her normal self. ASSESSMENT: 1. Urinary tract infection growing Escherichia coli. 2. Diabetes, well controlled. 3. Anxiety depressive disorder. 4. Dementia. 5. Constipation. 6. Reactive depression. 7. Alzheimer's disease. 8. Generalized weakness. PLAN: The patient is ready for discharge. I will write her prescription for Bactrim DS. I have talked to two of her sisters and they will pick it up and get her started on it. She will take that twice a day for seven more days. They will continue to feed her well, get her out of bed and exercise her, make sure that she continues taking her other medications. I did spend greater than 40 minutes talking with both sisters, the patient and during her discharge. Job ID: [id number]
== END 2019-01-01 16:10 | disposition home or self-care (01) | DRG 690 ==
LOC: NAV ERS 15:25 → OBSVTOIN 18:49 → NAV ACUTE 18:49
PROVIDERS: ADMIT Family Medicine; ATTEND Family Medicine
DX: N39.0 Urinary tract infection, site not specified (principal); E11.9 Type 2 diabetes mellitus without complications; F41.9 Anxiety disorder, unspecified; K59.00 Constipation, unspecified; G30.9 Alzheimer's disease, unspecified; F02.80 Dementia in other diseases classified elsewhere, unspecified severity, without behavioral disturbance, psychotic disturbance, mood disturbance, and anxiety; B96.20 Unspecified Escherichia coli [E. coli] as the cause of diseases classified elsewhere; F32.9 Major depressive disorder, single episode, unspecified; Z90.89 Acquired absence of other organs; Z90.49 Acquired absence of other specified parts of digestive tract; Z90.710 Acquired absence of both cervix and uterus; Z79.82 Long term (current) use of aspirin; Z79.84 Long term (current) use of oral hypoglycemic drugs
CPT/HCPCS: 36415; 36416; 51701; 70450; 71045; 74177; 80053; 81003; 81015; 82550; 83605; 83690; 84484; 85025; 87040; 87077; 87086; 87186; 93005; 96374; A4353; J0696; J7050; Q9967

== ENCOUNTER 2019-01-08 22:32 | Emergency (ER) | payer MEDICARE ==
[2019-01-08 22:58] LABS: #Basophils 0.1 thou/uL (0.0-0.2); #Eosinphils 0.1 thou/uL (0.0-0.7); #Lymphocytes 3.3 thou/uL (1.20-3.40); #Monocytes 0.7 thou/uL (0.11-0.59); #Neutrophils 5.3 thou/uL (1.40-6.50); %Basophils 0.9 % (0.0-1.0); %Eosinophils 1.2 % (0.0-10.0); %Lymphocytes 34.5 % (21.0-51.0); %Monocytes 7.5 % (0.0-10.0); %Neutrophils 55.9 % (42.0-75.0); Hemoglobin 15.2 g/dL (12.0-16.0); Mean Corpuscular HGB CONC 31.5 g/dL (32.0-36.0); Mean Corpuscular Hemoglobin 30.5 pg (27.0-31.0); Mean Corpuscular Volume 96.5 fL (78.0-98.0); Mean Platelet Volume 5.7 fL (7.4-10.4); Platelet Count 307 thou/uL (130-400); RBC Distribution Width 12.2 % (11.5-14.5); Red Blood Cell (RBC) Count 4.98 mill/uL (4.20-5.40); White Blood Cell (WBC) Count 9.5 thou/uL (4.8-10.8)
[2019-01-08 23:23] LABS: ALT (SGPT) 14 U/L (8-55); AST (SGOT) 18 U/L (5-34); Albumin 4.4 g/dL (3.4-4.8); Alkaline Phosphatase 98 U/L (40-150); Anion Gap 16 mmol/L (10-20); BUN (Urea Nitrogen) 11 mg/dL (9.8-20.1); Bilirubin, Total 0.5 mg/dL (0.2-1.2); Calc. Creatinine Clearance 0 mL/min (70-130); Calcium 10.3 mg/dL (7.8-10.44); Carbon Dioxide 23 mmol/L (23-31); Chloride 100 mmol/L (98-107); Estimated GFR-MDRD 78; Globulin 3.4 g/dL (2.4-3.5); Glucose 146 mg/dL (83-110); Lipase 27 U/L (8-78); Potassium 4.3 mmol/L (3.5-5.1); Protein, Total 7.8 g/dL (6.0-8.3); Sodium 135 mmol/L (136-145)
[2019-01-08 23:23] LABS: Bilirubin Negative (Negative); Blood, Urine Trace (Negative); Clarity Clear (Clear); Glucose, Urine (Dipstick) Negative (Negative); Leukocyte Negative (Negative); Nitrite Negative (Negative); Protein, Urine (Dipstick) Negative (Neg-Trace); RBC/HPF 0-3 HPF (0-3); Specific Gravity, Urine 1.025 (1.005-1.030); WBC/HPF None Seen HPF (0-3)
[2019-01-08 23:24] LABS: Bacteria/HPF None Seen HPF (None Seen); Squamous Epithelial 0-3 HPF (0-3)
[2019-01-08] MEDS ORDERED: Ondansetron PF 4 MG/2 ML Vial ONE (23:34)
[2019-01-08] MEDS ORDERED: Promethazine HCl 25 MG/ML VIAL ONE (23:36)
--- NOTE | 2019-01-08 23:39 | RAD ---
CHEST ONE VIEW: 01/08/19 HISTORY: Chest pain. COMPARISON: Radiograph 12/29/18. FINDINGS: Lungs are without confluent air space consolidation, pneumothorax or effusion. Remote left lateral ri b fractures. Scarring in the right middle lobe. No acute osseous abnormality. IMPRESSION: No acute intrathoracic abnormality. POS: [facility]
== END 2019-01-09 00:04 | disposition home or self-care (01) ==
LOC: NAV ERS 22:32
DX: R10.13 Epigastric pain (principal); F03.90 Unspecified dementia, unspecified severity, without behavioral disturbance, psychotic disturbance, mood disturbance, and anxiety; I25.2 Old myocardial infarction; E11.9 Type 2 diabetes mellitus without complications; F17.220 Nicotine dependence, chewing tobacco, uncomplicated; Z79.899 Other long term (current) drug therapy; Z79.82 Long term (current) use of aspirin; Z79.84 Long term (current) use of oral hypoglycemic drugs
CPT/HCPCS: 36415; 51701; 71045; 80053; 81003; 81015; 83605; 83690; 83880; 84484; 85025; 87086; 93005; 96361; 96365; A4353; J2405; J2550

== ENCOUNTER 2019-08-30 03:09 | Emergency (ER) | payer MEDICARE ==
[2019-08-30 03:49] LABS: #Basophils 0.1 thou/uL (0.0-0.2); #Lymphocytes 1.4 thou/uL (1.20-3.40); #Monocytes 0.5 thou/uL (0.11-0.59); #Neutrophils 10.1 thou/uL (1.40-6.50); %Basophils 0.5 % (0.0-1.0); %Eosinophils 0.2 % (0.0-10.0); %Lymphocytes 11.6 % (21.0-51.0); %Monocytes 4.4 % (0.0-10.0); %Neutrophils 83.1 % (42.0-75.0); Hemoglobin 14.4 g/dL (12.0-16.0); Mean Corpuscular Hemoglobin 31.6 pg (27.0-31.0); Mean Corpuscular Volume 95.6 fL (78.0-98.0); Mean Platelet Volume 6.7 fL (7.4-10.4); Platelet Count 239 thou/uL (130-400); RBC Distribution Width 11.5 % (11.5-14.5); Red Blood Cell (RBC) Count 4.55 mill/uL (4.20-5.40); White Blood Cell (WBC) Count 12.1 thou/uL (4.8-10.8)
[2019-08-30] MEDS ORDERED: Pantoprazole 40 MG VIAL ONE (03:51)
[2019-08-30] MEDS ORDERED: Lidocaine Viscous Sol 2% 15 ml UD Cup ONE (03:51)
[2019-08-30] MEDS ORDERED: Mag-Al Plus 1200 MG/1200 MG/120 MG/30 ML UDCUP ONE (03:51)
[2019-08-30 04:08] LABS: ALT (SGPT) 11 U/L (8-55); AST (SGOT) 14 U/L (5-34); Albumin 4.2 g/dL (3.4-4.8); Alkaline Phosphatase 86 U/L (40-110); Anion Gap 16 mmol/L (10-20); BUN (Urea Nitrogen) 11 mg/dL (9.8-20.1); Bilirubin, Total 0.4 mg/dL (0.2-1.2); CKMB 0.9 ng/mL (0-6.6); Calc. Creatinine Clearance 0 mL/min (70-130); Calcium 9.6 mg/dL (7.8-10.44); Carbon Dioxide 24 mmol/L (23-31); Chloride 101 mmol/L (98-107); Estimated GFR-MDRD 77; Globulin 3.1 g/dL (2.4-3.5); Glucose 183 mg/dL (83-110); Lipase 22 U/L (8-78); Protein, Total 7.3 g/dL (6.0-8.3); Sodium 137 mmol/L (136-145)
--- NOTE | 2019-08-30 07:30 | RAD ---
EXAM: Portable chest PROVIDED CLINICAL HISTORY: Chest pain COMPARISON: 01/08/2019 FINDINGS: Cardiac and mediastinal silhouette is within normal limits. No focal consolidation, pleural fluid or pneumothorax evident. IMPRESSION: No evidence for an acute cardiopulmonary process.
== END 2019-08-30 04:43 | disposition home or self-care (01) ==
LOC: NAV ERS 03:09
DX: K29.70 Gastritis, unspecified, without bleeding (principal); K21.9 Gastro-esophageal reflux disease without esophagitis; E11.9 Type 2 diabetes mellitus without complications; F03.90 Unspecified dementia, unspecified severity, without behavioral disturbance, psychotic disturbance, mood disturbance, and anxiety; F17.220 Nicotine dependence, chewing tobacco, uncomplicated; Z79.84 Long term (current) use of oral hypoglycemic drugs; Z79.82 Long term (current) use of aspirin
CPT/HCPCS: 36415; 71045; 80053; 82553; 83690; 84484; 85025; 93005; 94760; 96374; C9113

== ENCOUNTER 2019-12-04 12:10 | Inpatient (IN) | payer MEDICARE ==
[2019-12-04 13:05] LABS: ALT (SGPT) 16 U/L (8-55); AST (SGOT) 18 U/L (5-34); Albumin 3.7 g/dL (3.4-4.8); Alkaline Phosphatase 84 U/L (40-110); Anion Gap 14 mmol/L (10-20); BUN (Urea Nitrogen) 9 mg/dL (9.8-20.1); Bilirubin, Total 0.4 mg/dL (0.2-1.2); Calc. Creatinine Clearance 0 mL/min (70-130); Calcium 9.3 mg/dL (7.8-10.44); Carbon Dioxide 24 mmol/L (23-31); Chloride 100 mmol/L (98-107); Estimated GFR-MDRD 82; Globulin 3.2 g/dL (2.4-3.5); Glucose 187 mg/dL (83-110); Potassium 4.1 mmol/L (3.5-5.1); Protein, Total 6.9 g/dL (6.0-8.3); Sodium 134 mmol/L (136-145)
[2019-12-04 13:13] LABS: Band 5 % (5-11); Hemoglobin 13.9 g/dL (12.0-16.0); Lymphocytes 11 % (21-51); MDiff Complete? YES; Mean Corpuscular HGB CONC 32.9 g/dL (32.0-36.0); Mean Corpuscular Hemoglobin 31.4 pg (27.0-31.0); Mean Corpuscular Volume 95.5 fL (78.0-98.0); Mean Platelet Volume 6.6 fL (7.4-10.4); Monocytes 6 % (0-10); Neutrophil 78 % (42-75); Platelet Count 227 thou/uL (130-400); Platelet Morphology Comment Appears Adequate; RBC Distribution Width 12.1 % (11.5-14.5); Red Blood Cell (RBC) Count 4.41 mill/uL (4.20-5.40); White Blood Cell (WBC) Count 12.5 thou/uL (4.8-10.8)
[2019-12-04] MEDS ORDERED: cefTRIAXone\\ROCEPHIN 2 GM VIAL ONE (13:24)
[2019-12-04] MEDS ORDERED: Ondansetron PF 4 MG/2 ML Vial IVP PRN (14:53)
[2019-12-04] MEDS ORDERED: Ondansetron ODT 4 MG TAB SL PRN (14:53)
[2019-12-04] MEDS ORDERED: Acetaminophen 325 MG TAB PO PRN (14:53)
[2019-12-04 15:33] VITALS: BMI 29.2
[2019-12-04] MEDS ORDERED: Senokot S 8.6-50 MG TAB PO PRN (18:27)
[2019-12-04] MEDS ORDERED: Loperamide HCl 2 MG CAP PO PRN ×2 (18:27)
[2019-12-04] MEDS ORDERED: Dextrose 50% Abboject 50 ML SYRINGE SLOW IVP PRN (18:32)
[2019-12-04] MEDS ORDERED: Dextrose 5% in Water 1,000 ML IV PRN (18:32)
[2019-12-04] MEDS: Citalopram 10 MG TAB PO SCH (21:16)
[2019-12-04] MEDS: Donepezil HCl 10 MG TAB PO SCH (21:16)
[2019-12-04] MEDS ORDERED: cefTRIAXone\\ROCEPHIN 2 GM in Sodium Chloride 0.9% 100 ML IVPB SCH (22:00)
--- NOTE | 2019-12-05 01:34 | HP ---
HISTORY OF PRESENT ILLNESS: Mrs. Rodríguez is a very pleasant 89-year-old white female, who had urinary tract infection and was started on Macrobid on Sunday. She has taken Macrobid 100 mg twice a day for a total of four pills and this morning, awakened confused with poor appetite and picking at things in the air. She was brought to the emergency room and found to have increased urinary tract infection, nonresponsive to Macrobid but sensitive to cefuroxime. The patient was started on IV antibiotics and noted to be somewhat dehydrated and was admitted to the hospital. She is on IV antibiotics. It is noted that she is a diabetic, so we will cover her for her sugars also. PAST MEDICAL HISTORY: Positive for diabetes; kidney infections, multiple; and Alzheimer dementia. PAST SURGICAL HISTORY: 1. Tonsillectomy. 2. Appendectomy as a child. 3. Hysterectomy. 4. Right hip ORIF on 06/02/2012. 5. Right distal femur ORIF on 06/24/2017. 6. EGD on 07/11/2017. 7. Colonoscopy on 07/11/2017. FAMILY HISTORY: The patient's father is and has no known family history. The patient's mother is with stomach cancer and hypertension. SOCIAL HISTORY: Reveals the patient is a nonsmoker. She does dip and use snuff. She does have advanced directives. She does not do drugs or alcohol. ALLERGIES: REVEAL THE PATIENT IS NOT ALLERGIC TO ANYTHING. PRESENT MEDICATIONS: Reveal the patient is presently on the following; 1. Aspirin 81 mg a day. 2. Metformin extended release one tablet every evening with meals. 3. Donepezil 10 mg one tablet every day at bedtime. 4. Namenda 10 mg twice a day. 5. Citalopram 10 mg daily. 6. Zantac 150 mg at bedtime. 7. Tylenol 500 mg pills p.r.n. q.6 hours, not to exceed 3000 mg a day. 8. Phenergan (promethazine) 25 mg p.r.n. 9. Motrin, which is ibuprofen 200 mg p.r.n. REVIEW OF SYSTEMS: CONSTITUTIONAL: The patient has been running some fever and chills today. Otherwise, she just complained of increased urinary symptoms on Sunday. She was started on Macrobid, I believe Thursday morning. The patient has not gained any weight or lost any weight. OPHTHALMOLOGICAL: No change in vision or eye pain. HEENT: The patient denies any ear pain. No nasal congestion, drainage, rhinorrhea, or sinus pressure. No voice changes. CARDIOVASCULAR: Denies chest pain, palpitations, irregular heartbeat, shortness of breath, or lower extremity edema. PULMONARY: Denies shortness of breath, dyspnea on exertion, cough, or wheezing. GI: Denies abdominal pain, nausea, or vomiting. No blood in stool. She does admit to feeling a fullness or somewhat bloated. MUSCULOSKELETAL: Denies joint pain, joint stiffness, or myalgias. INTEGUMENTARY/SKIN: Denies rashes or bruises or new skin lesions. NEUROLOGIC: The patient is oriented to person, not place or time at this time. She typically is not confused and not lethargic. Denies headaches. Denies sleeping problems, vision problems, or syncopal episodes. She is not depressed and not had any significant stressors lately. PHYSICAL EXAMINATION: VITAL SIGNS: Reveal blood pressure 136/61, pulse 83, respirations 18, O2 saturation 95% on room air, and T-max 97.6. GENERAL: This is a well-developed, well-nourished, thin, black female, in no apparent distress except she is not as responsive and talkative as usual. She states she just does not feel well. HEENT: Reveals normocephalic and nontraumatic cranium. Pupils are equally round and reactive. Extraocular movements are intact. Nose and throat are slightly dry. NECK: Supple without masses, nodes, or bruits. CHEST: Clear to auscultation. No rales, no rhonchi, no wheezes are heard. HEART: Reveals a regular rate and rhythm without murmurs, gallops, or rubs. ABDOMEN: Soft, nontender without organomegaly. No rebound. No guarding is noted. No suprapubic tenderness is noted. : Otherwise deferred. EXTREMITIES: Reveal no clubbing, cyanosis, or edema. PSYCHIATRIC: The patient is only alert and oriented x1. She says she just does not feel well. LABORATORY DATA: Reveals white count 12,500 with hemoglobin 13.9, hematocrit 42.1, platelet count 227,000 with 78 neutrophils, which is high; 5 bands; 11 lymphs; and 6 monos. Sodium is 134, slightly low; potassium 4.1; chloride 100; carbon dioxide 24; BUN is 9; and creatinine 0.80. GFR is 82. Sugars 187. Troponin is negative. Liver enzymes are unremarkable. ASSESSMENT: 1. Urinary tract infection, which is growing Pseudomonas, sensitive to Rocephin and Klebsiella, sensitive to Rocephin. 2. Hypertension. 3. Diabetes, type 2. 4. Alzheimer dementia. 5. Generalized weakness. PLAN: 1. The patient is admitted to the hospital, will be continued on Rocephin 1 g q.24 hours. 2. We will continue and start her on new medications. 3. Start her on Accu-Cheks a.c. and at bedtime. 4. Do sliding scale insulin as needed, low dose. 5. Continue hydration. 6. Stress ulcer prophylaxis. 7. Decubitus precautions. 8. DVT prophylaxis. 9. Supportive care. Job ID: [id number]
[2019-12-05 05:27] LABS: Band 2 % (5-11); Eosinophils 2 % (0-10); Hemoglobin 13.7 g/dL (12.0-16.0); Lymphocytes 18 % (21-51); MDiff Complete? YES; Mean Corpuscular HGB CONC 31.9 g/dL (32.0-36.0); Mean Corpuscular Hemoglobin 30.3 pg (27.0-31.0); Mean Corpuscular Volume 94.9 fL (78.0-98.0); Mean Platelet Volume 7.1 fL (7.4-10.4); Monocytes 6 % (0-10); Neutrophil 72 % (42-75); Platelet Count 129 thou/uL (130-400); Platelet Morphology Comment Appears Adequate; RBC Distribution Width 12.3 % (11.5-14.5); RBC Morphology Normal; Red Blood Cell (RBC) Count 4.51 mill/uL (4.20-5.40); White Blood Cell (WBC) Count 9.2 thou/uL (4.8-10.8)
[2019-12-05 05:44] LABS: ALT (SGPT) 20 U/L (8-55); AST (SGOT) 21 U/L (5-34); Albumin 3.5 g/dL (3.4-4.8); Alkaline Phosphatase 78 U/L (40-110); Anion Gap 16 mmol/L (10-20); BUN (Urea Nitrogen) 9 mg/dL (9.8-20.1); Bilirubin, Total 0.4 mg/dL (0.2-1.2); Calc. Creatinine Clearance 76 mL/min (70-130); Calcium 8.9 mg/dL (7.8-10.44); Carbon Dioxide 24 mmol/L (23-31); Chloride 100 mmol/L (98-107); Estimated GFR-MDRD Greater than 90; Globulin 3.1 g/dL (2.4-3.5); Glucose 135 mg/dL (83-110); Potassium 4.2 mmol/L (3.5-5.1); Protein, Total 6.6 g/dL (6.0-8.3); Sodium 136 mmol/L (136-145)
[2019-12-05] MEDS ORDERED: metFORMIN XR 500 MG TAB PO SCH (08:00)
[2019-12-05] MEDS ORDERED: FLU VACC QS2019-20(6MOS UP)/PF 60 MCG/0.5 ML SYRINGE IM ONE (09:00)
[2019-12-05] MEDS: Aspirin 81 mg Enteric Coated Tablet PO SCH (09:34)
[2019-12-05] MEDS: Polyethylene Glycol 3350 17 GM Packet PO SCH (09:34)
[2019-12-05] MEDS: cefTRIAXone\\ROCEPHIN 2 GM in Sodium Chloride 0.9% 100 ML IVPB SCH (14:39)
[2019-12-05] MEDS: Insulin Regular 300 UNITS/3 ML VIAL SC PRN (14:39)
[2019-12-05] MEDS: metFORMIN 500 MG TAB PO SCH (17:57)
[2019-12-05] MEDS: Citalopram 10 MG TAB PO SCH (20:43)
[2019-12-05] MEDS: Donepezil HCl 10 MG TAB PO SCH (20:43)
[2019-12-06] MEDS: Polyethylene Glycol 3350 17 GM Packet PO SCH (09:25)
[2019-12-06] MEDS: Aspirin 81 mg Enteric Coated Tablet PO SCH (09:25)
[2019-12-06] MEDS ORDERED: Sodium Chloride 0.9% 10 ML ONE (13:49)
[2019-12-06] MEDS: cefTRIAXone\\ROCEPHIN 2 GM in Sodium Chloride 0.9% 100 ML IVPB SCH (14:13)
--- NOTE | 2019-12-06 16:12 | PRG ---
DATE OF SERVICE: 12/06/2019 SUBJECTIVE: Ms. Rodríguez is resting in bed and denies any concerns. Her family is in the room and they state that she is pretty much back to normal. They were hoping to have her go home today. I advised them that she is still on the IV antibiotic and the plan is to switch her to oral antibiotic and if she is still doing well tomorrow, then send her home tomorrow. Her urine culture from her office visit is growing E coli 75,000 to 100,000 and it is sensitive to Macrobid, but the patient did not tolerate it and ceftriaxone. We will switch her to oral cefdinir and anticipate discharge tomorrow. OBJECTIVE: VITAL SIGNS: She is afebrile. Heart rate 87, respirations 20, oxygen saturation 96% on room air, blood pressure 141/63. CARDIOVASCULAR: S1, S2 plus. RESPIRATORY: Normal vesicular breath sounds. ABDOMEN: Soft, nontender. Bowel sounds heard in all quadrants. EXTREMITIES: Without cyanosis or clubbing. IMPRESSION: 1. Diabetes mellitus type 2. 2. Depression and anxiety. 3. Alzheimer's dementia. 4. Urinary tract infection with Escherichia coli and resolved dehydration. PLAN: 1. Continue current medications, but stop IV antibiotics and start Omnicef 300 mg b.i.d. 2. Continue home medications. 3. 1800-calorie heart-healthy ADA diet. 4. Accu-Cheks with sliding scale coverage. 5. Monitor blood pressure and adjust medications as needed. 6. Anticipate discharge her to home tomorrow. Discussed with the patient and family. Job ID: [id number]
[2019-12-06] MEDS: metFORMIN 500 MG TAB PO SCH (17:01)
[2019-12-06] MEDS: Insulin Regular 300 UNITS/3 ML VIAL SC PRN (17:01)
[2019-12-06] MEDS: Cefdinir 300 MG CAP PO SCH (20:44)
[2019-12-06] MEDS: Citalopram 10 MG TAB PO SCH (20:44)
[2019-12-06] MEDS: Donepezil HCl 10 MG TAB PO SCH (20:44)
[2019-12-07 05:31] LABS: #Basophils 0.1 thou/uL (0.0-0.2); #Eosinphils 0.3 thou/uL (0.0-0.7); #Lymphocytes 1.9 thou/uL (1.20-3.40); #Monocytes 0.7 thou/uL (0.11-0.59); #Neutrophils 3.8 thou/uL (1.40-6.50); %Basophils 1.6 % (0.0-1.0); %Eosinophils 4.3 % (0.0-10.0); %Lymphocytes 27.9 % (21.0-51.0); %Monocytes 9.7 % (0.0-10.0); %Neutrophils 56.6 % (42.0-75.0); Hemoglobin 13.4 g/dL (12.0-16.0); Mean Corpuscular HGB CONC 32.8 g/dL (32.0-36.0); Mean Corpuscular Hemoglobin 30.6 pg (27.0-31.0); Mean Corpuscular Volume 93.4 fL (78.0-98.0); Mean Platelet Volume 6.1 fL (7.4-10.4); Platelet Count 235 thou/uL (130-400); RBC Distribution Width 11.7 % (11.5-14.5); Red Blood Cell (RBC) Count 4.39 mill/uL (4.20-5.40); White Blood Cell (WBC) Count 6.8 thou/uL (4.8-10.8)
[2019-12-07 05:50] LABS: Anion Gap 14 mmol/L (10-20); BUN (Urea Nitrogen) 8 mg/dL (9.8-20.1); Calc. Creatinine Clearance 79 mL/min (70-130); Calcium 9.3 mg/dL (7.8-10.44); Carbon Dioxide 26 mmol/L (23-31); Chloride 102 mmol/L (98-107); Estimated GFR-MDRD Greater than 90; Glucose 110 mg/dL (83-110); Sodium 138 mmol/L (136-145)
[2019-12-07] MEDS: Aspirin 81 mg Enteric Coated Tablet PO SCH (09:24)
[2019-12-07] MEDS: Cefdinir 300 MG CAP PO SCH ×2 (09:24→15:17)
[2019-12-07] MEDS: Polyethylene Glycol 3350 17 GM Packet PO SCH (09:25)
[2019-12-07 13:28] VITALS: BP 139/65; TEMP 98.7
--- NOTE | 2019-12-08 01:01 | DIS ---
DATE OF ADMISSION: 12/04/2019 DATE OF DISCHARGE: 12/07/2019 PRINCIPAL DIAGNOSES: 1. Urinary tract infection with Escherichia coli. 2. Resolved dehydration. 3. Diabetes mellitus type 2. 4. Depression and anxiety. 5. Alzheimer's type dementia. COMPLICATIONS: None. ADVERSE REACTIONS: None. PROCEDURES: None. CONSULTATIONS: None. HOSPITAL COURSE: The patient was admitted by Dr. Hughes on the with urinary tract infection, not responding to oral antibiotics. She was also felt to be dehydrated. She was started on IV Rocephin and IV fluids. She has responded well to the above treatment. IV fluids were discontinued and I switched her from Rocephin to Omnicef. Her laboratory values are still within normal limits today. No fever. Family states that she remains back to baseline and plan is to discharge her home. She is to continue her home medications plus the Omnicef 300 mg b.i.d. for 7 more days. I am going to send the prescription into [facility] and family will be given her one dose for tonight as [facility] is closed. PHYSICAL EXAMINATION: VITAL SIGNS: On the day of discharge, the patient is afebrile, heart rate 84, respirations 20, oxygen saturation 95% on room air, blood pressure 139/65. CARDIOVASCULAR: S1 and S2 plus. RESPIRATORY: Normal vesicular breath sounds. ABDOMEN: Soft, nontender. Bowel sounds heard in all quadrants. EXTREMITIES: Without cyanosis or clubbing. DISCHARGE MEDICATIONS: 1. Ecotrin 81 mg daily. 2. Omnicef 300 mg b.i.d. for 7 more days. 3. Celexa 10 mg daily. 4. Aricept 10 mg daily. 5. Namenda 10 mg b.i.d. 6. Metformin 500 mg at night. 7. Protonix 40 mg b.i.d. 8. MiraLAX 17 g in 8 ounces of water daily. 9. Senokot-S 2 tablets b.i.d. p.r.n. DISCHARGE INSTRUCTIONS: The patient already has a followup appointment with Dr. Hughes. Discussed with family. All questions answered. For full details, please see chart. Job ID: [id number]
--- NOTE | 2019-12-09 21:53 | PQF ---
Susanne Rodríguez POLLACHI MD [id number] CLINICAL DOCUMENTATION CLARIFICATION FORM: POST DISCHARGE Addendum to original discharge summary date: ____ Late entry note date: __ NOT MY PATIENT, PLEASE SEND THIS TO HER PCP, DR. HAWLEY DATE:12/09/2019 ATTN:DEL BURTON MD Please exercise your independent, professional judgment in responding to the clarification form. Clinical indicators are provided on the bottom of this form for your review Please check appropriate box(s): [ ] Encephalopathy: Type: [ ] Acute [ ] Subacute [ ] Chronic Etiology: [ ] Hypertensive [ ] Metabolic [ ] Toxic [ ] Hepatic with Coma [ ] Hepatic w/o Coma [ ] Hypoxic [ ] Septic [ ] Drug induced: [ ] Unspecified [ ] in the setting of underlying dementia [ ] Other (please specify) [ ] Transient Alteration of Awareness [ ] Other diagnosis [ ] Unable to determine In addition, please specify: Present on Admission (POA): [ ] Yes [ ] No [ ] Unable to determine For continuity of documentation, please document condition throughout progress notes and discharge summary. Thank You. CLINICAL INDICATORS - SIGNS / SYMPTOMS / LABS Increased weakness,Decreased alertness/orientation-Documented in ED on 12/04 by Timothy Viera Confused with poor apatite & picking at things in the air , increased UTI , dehydration -Documented in H&P on 12/04 by Nicko Hawley MD Alzheimer's dementia-Documented in H&P on 12/04 by Nicko Hawley MD Depression and anxiety-Documented in PN on [facility] RISK FACTORS Alzheimer's dementia-Documented in H&P on 12/04 by Nicko Hawley MD UTI which is growing pseudomonas sensitive to Rocephin -Documented in H&P on by Nicko Hawley MD Depression and anxiety-Documented in PN on [facility] TREATMENTS: Will be continued on Rocephin 1 g q 24 hours-Documented in H&P on 12/04 by Nicko Hawley MD Continue hydration-Documented in H&P on 12/04 by Nicko Hawley MD [employer] (This form is maintained as a part of the permanent medical record) 2014 [email or web address]. All Rights Reserved [email or web address]
== END 2019-12-07 15:45 | disposition home or self-care (01) | DRG 690 ==
LOC: NAV ERS 12:10 → NAV ACUTE 14:43
PROVIDERS: ADMIT Family Medicine; ATTEND Family Medicine
DX: N39.0 Urinary tract infection, site not specified (principal); Z16.29 Resistance to other single specified antibiotic; B96.1 Klebsiella pneumoniae [K. pneumoniae] as the cause of diseases classified elsewhere; B96.20 Unspecified Escherichia coli [E. coli] as the cause of diseases classified elsewhere; E86.0 Dehydration; E11.9 Type 2 diabetes mellitus without complications; F32.9 Major depressive disorder, single episode, unspecified; F41.9 Anxiety disorder, unspecified; F02.80 Dementia in other diseases classified elsewhere, unspecified severity, without behavioral disturbance, psychotic disturbance, mood disturbance, and anxiety; G30.9 Alzheimer's disease, unspecified; F17.290 Nicotine dependence, other tobacco product, uncomplicated; Z90.710 Acquired absence of both cervix and uterus; Z90.49 Acquired absence of other specified parts of digestive tract; Z80.0 Family history of malignant neoplasm of digestive organs; Z82.49 Family history of ischemic heart disease and other diseases of the circulatory system
CPT/HCPCS: 36415; 36416; 80048; 80053; 84484; 85025; 93005; 96374; A4353; J0696; J1815; J3490

== ENCOUNTER 2020-01-06 11:24 | Emergency (ER) | payer MEDICARE ==
--- NOTE | 2020-01-06 11:57 | RAD ---
Exam: Chest one view HISTORY:Chest pain. Comparison: 08/30/2019 FINDINGS: Cardiac silhouette: Normal Aorta: Atherosclerosis aorta Pulmonary vessels: Normal Costophrenic angles: Left-sided pleural effusion. LUNGS: Diminished lung volumes, likely due to a poor inspiratory effort. Interstitial infiltrate or a telectasis superimposed upon chronic change. Pneumothorax: None Osseous abnormalities: None IMPRESSION: 1. Diminished lung volumes, likely due to a poor inspiratory effort. 2. Interstitial infiltrate and/or atelectasis superimposed upon chronic change 3. Left-sided pleural effusion
[2020-01-06 12:28] LABS: ALT (SGPT) 14 U/L (8-55); AST (SGOT) 11 U/L (5-34); Albumin 3.6 g/dL (3.4-4.8); Alkaline Phosphatase 80 U/L (40-110); Anion Gap 16 mmol/L (10-20); BUN (Urea Nitrogen) 10 mg/dL (9.8-20.1); Bilirubin, Total 0.5 mg/dL (0.2-1.2); CK (CPK) Less than 9 U/L (29-168); Calc. Creatinine Clearance 0 mL/min (70-130); Calcium 9.3 mg/dL (7.8-10.44); Carbon Dioxide 27 mmol/L (23-31); Chloride 96 mmol/L (98-107); Estimated GFR-MDRD 90; Globulin 3.6 g/dL (2.4-3.5); Glucose 207 mg/dL (83-110); Potassium 4.1 mmol/L (3.5-5.1); Protein, Total 7.2 g/dL (6.0-8.3); Sodium 135 mmol/L (136-145)
[2020-01-06 12:29] LABS: #Basophils 0.1 thou/uL (0.0-0.2); #Eosinphils 0.2 thou/uL (0.0-0.7); #Lymphocytes 1.2 thou/uL (1.20-3.40); #Neutrophils 10.9 thou/uL (1.40-6.50); %Basophils 0.6 % (0.0-1.0); %Eosinophils 1.8 % (0.0-10.0); %Monocytes 7.5 % (0.0-10.0); Hemoglobin 14.3 g/dL (12.0-16.0); Mean Corpuscular HGB CONC 31.7 g/dL (32.0-36.0); Mean Corpuscular Hemoglobin 30.8 pg (27.0-31.0); Mean Corpuscular Volume 97.1 fL (78.0-98.0); Mean Platelet Volume 6.6 fL (7.4-10.4); Platelet Count 293 thou/uL (130-400); RBC Distribution Width 12.2 % (11.5-14.5); Red Blood Cell (RBC) Count 4.64 mill/uL (4.20-5.40); White Blood Cell (WBC) Count 13.5 thou/uL (4.8-10.8)
[2020-01-06 15:13] LABS: Troponin I Less than 0.010 ng/mL (< 0.028)
== END 2020-01-06 15:25 | disposition home or self-care (01) ==
LOC: NAV ERS 11:24
DX: R07.9 Chest pain, unspecified (principal); E11.9 Type 2 diabetes mellitus without complications; F03.90 Unspecified dementia, unspecified severity, without behavioral disturbance, psychotic disturbance, mood disturbance, and anxiety; I25.2 Old myocardial infarction; F17.220 Nicotine dependence, chewing tobacco, uncomplicated; Z79.84 Long term (current) use of oral hypoglycemic drugs; Z79.899 Other long term (current) drug therapy; Z79.82 Long term (current) use of aspirin
CPT/HCPCS: 71045; 80053; 82550; 84484; 85025; 93005

== ENCOUNTER 2020-11-09 14:38 | Outpatient (CLI) | payer MEDICARE ==
[2020-11-09 21:54] LABS: Bacteria/HPF 2+ HPF (None Seen); Bilirubin Negative (Negative); Blood, Urine Negative (Negative); Clarity Clear (Clear); Glucose, Urine (Dipstick) Normal (Negative); Ketone, Urine Negative (Negative); Leukocyte 250 Leu/uL (Negative); Nitrite 2+ (Negative); Protein, Urine (Dipstick) Negative (Neg-Trace); RBC/HPF 0-3 HPF (0-3); Specific Gravity, Urine 1.006 (1.002-1.036); Squamous Epithelial 0-3 HPF (0-3); Urobilinogen Normal mg/dL (Less than 2)
== END 2020-11-09 14:39 | disposition home or self-care (01) ==
LOC: NAVSJIPCSP 14:38
PROVIDERS: ATTEND Family Medicine
DX: K59.00 Constipation, unspecified (principal); I10 Essential (primary) hypertension; G30.0 Alzheimer's disease with early onset
CPT/HCPCS: 81001; 87077; 87086; 87186

== ENCOUNTER 2021-01-12 23:46 | Emergency (ER) | payer MEDICARE, OTHER | END 2021-01-13 02:02 | disposition home or self-care (01) | LOC: NAV ERS 23:46 | DX: S70.01XA Contusion of right hip, initial encounter (principal); E11.9 Type 2 diabetes mellitus without complications; I25.2 Old myocardial infarction; F17.220 Nicotine dependence, chewing tobacco, uncomplicated; Z79.82 Long term (current) use of aspirin; Z79.84 Long term (current) use of oral hypoglycemic drugs; Z79.899 Other long term (current) drug therapy; W06.XXXA Fall from bed, initial encounter | CPT/HCPCS: 72192 ==